=== PATIENT | male | born 1995 | race Caucasian/White ===

== ENCOUNTER 2023-04-14 01:54 | Observation (INO) | payer SELFPAY ==
[2023-04-14] VITALS (7 sets, daily range): BP systolic 114–145; BP diastolic 76–81; PULSE 50–76; RESP 16–18; TEMP 36.6–36.9; O2SAT 95–99; BMI 21.5; BMI 22.6
--- NOTE | 2023-04-14 02:35 | CT_ITS ---
[facility] [address], [place] [address] Patient Name: SHAHIDA ALVAREZ MRN: [id number] date: 1995 Sex: M Assigned Patient Location: ER Current Patient Location: ER Accession/Order Number: [id number] Exam Date: 04/14/2023 03:05 Report Date: 04/14/2023 04:08 At the request of: ARLENE MARKER Procedure: CT abdomen pelvis w con EXAM: CT abdomen pelvis w con HISTORY: GI bleeding. COMPARISON: None. TECHNIQUE: Routine CT abdomen/pelvis with intravenous contrast. FINDINGS: Lower chest: Unremarkable. Liver: Fatty infiltration of the liver. Gallbladder/biliary tree: Cholecystectomy. There is no biliary dilatation. Pancreas: Unremarkable. Spleen: Unremarkable. Adrenal glands: Unremarkable. Kidneys: Unremarkable. Bowel: There is a moderate amount of stool within the colon. There are a few diverticula along the descending and sigmoid colon without diverticulitis. The appendix is unremarkable. The distal esophagus is normal. There is a small amount of fluid within the stomach. There is prominence of the gastric rugal fold pattern. Fluid and a few air-fluid levels are seen within jejunal and ileal small bowel loops. The jejunal small bowel loops are mildly thickened. In the right clinical setting these findings can be associated with a gastroenteritis. There is a jejunal jejunal intussusception within the left mid to upper abdomen (axial image 59, coronal image 29 and sagittal image 25). The bowel gas pattern is nonobstructive. Inflammation: There is no free air, free fluid or inflammatory reaction. Vasculature: The abdominal aorta and the inferior vena cava are unremarkable. Lymphadenopathy: There are no pathologically enlarged lymph nodes within the abdomen/pelvis. Pelvis: The unopacified urinary bladder is unremarkable. The prostate gland is unremarkable. Osseous: Mild scoliosis. CT/CT abdomen pelvis w con IMPRESSION: Findings as described in the body the report which in the right clinical setting can be associated with a gastroenteritis. There is a jejunal jejunal intussusception within the left mid to upper abdomen. The bowel gas pattern is nonobstructive with a moderate amount of stool within the colon. There are a few diverticula along the descending and sigmoid colon without diverticulitis. The liver is fatty infiltrated. Electronically authenticated by: EDWIN OSORIO Date: 04/14/2023 04:08
[2023-04-14 02:56] LABS: Basophils Absolute Auto 0.1 10^3/uL (0.0-0.1); Basophils Percent Auto 0.9 % (0.2-2.0); Eosinophils Absolute Auto 0.1 10^3/uL (0.0-0.7); Eosinophils Percent Auto 1.3 % (0.9-7.0); Hematocrit 42.8 % (42.0-54.0); Hemoglobin 14.9 g/dL (14.0-18.0); Immature Granulocytes Abs Auto 0.02 10^3/uL (0.00-0.03); Immature Granulocytes Pct Auto 0.3 % (0.0-0.5); Lymphocytes Absolute Auto 1.5 10^3/uL (1.2-3.8); Lymphocytes Percent Auto 22.2 % (20.5-60.0); Mean Corpuscular HGB Conc 34.8 g/dL (29.9-35.2); Mean Corpuscular Hemoglobin 34.6 pg (25.9-34.0); Mean Corpuscular Volume 99.3 fL (80.0-94.0); Mean Platelet Volume 9.3 fL (9.5-13.5); Monocytes Absolute Auto 1.1 10^3/uL (0.3-0.8); Monocytes Percent Auto 15.8 % (1.7-12.0); Neutrophils Percent Auto 59.5 % (43.0-75.0); Platelet Count 214 10^3/uL (150-450); Red Blood Count 4.31 10^6/uL (4.70-6.10); Red Cell Distribution Width 12.4 % (11.0-15.0); White Blood Count 6.7 10^3/uL (4.0-11.0)
[2023-04-14] MEDS: KETOROLAC TROMETHAMINE 30 MG/ML VIAL IVP (02:58)
[2023-04-14] MEDS: 0.9 % SODIUM CHLORIDE 1,000 ML 1000 ML IV (02:58)
[2023-04-14] MEDS: FAMOTIDINE/PF 20 MG/2 ML VIAL IV (02:59)
[2023-04-14 03:05] LABS: Alanine Aminotransferase 147 U/L (16-63); Albumin Globulin Ratio 1.4; Albumin Level 4.1 g/dL (3.4-5.0); Alkaline Phosphatase 50 U/L (46-116); Anion Gap 13.8; Aspartate Amino Transferase 82 U/L (15-37); BUN Creatinine Ratio 7.6; Bilirubin Total 0.3 mg/dL (0.2-1.0); Calcium 8.8 mg/dL (8.5-10.1); Carbon Dioxide 24.7 mmol/L (21.0-32.0); Chloride 102 mmol/L (98-107); Estimated GFR (African America >60 (>=60); Estimated GFR (Non-African Ame >60 (>=60); Glucose 95 mg/dL (74-106); Potassium 3.5 mmol/L (3.5-5.1); Sodium 137 mmol/L (136-145); Total Protein 7.1 g/dL (6.4-8.2)
--- NOTE | 2023-04-14 03:24 | ED.GIBLEED1 ---
HPI - GI Bleed General Chief complaint: GI Bleed Stated complaint: ANAL BLEEDING Time Seen by Provider: 04/14/23 02:00 Source: patient Mode of arrival: walk-in Limitations: no limitations History of Present Illness HPI Narrative: This 28-year-old male with a history of hemorrhoids presents for evaluation of generalized abdominal pain with dark red bleeding with bowel movements for approximately one week. He states at times he has hard stool that is hard to pass and has some blood with it but has also been having normal stools that have been dark. He has generalized abdominal pain. He has not had any nausea or vomiting or diarrhea.He has had a colonoscopy in the past and endoscopy. He has ongoing stomach issues . He had his gallbladder removed at age 13. He does admit to taking aspirin on a fairly regular basis. He denies any chest pain. He has ongoing shortness of breath and admits to smoking 1-2 packs of cigarettes on a daily basis. He denies any weight loss. He denies any fever. He does not take any stool softeners. He is not certain if he has a hemorrhoid at this time but states that is anus feels weird. He states that he has a various number of bowel movements on a daily basis and the dark stools have been present for about a week. Related Data Home Medications Medication Instructions Recorded Confirmed No Known Home Medications 04/14/23 04/14/23 Allergies Allergy/AdvReac Type Severity Reaction Status Date / Time No Known Drug Allergies Allergy Verified 04/14/23 02:06 Review of Systems ROS Status of ROS 10 or more systems reviewed and unremarkable except as noted in history and below PFSH PFSH Social History Smoking status: Current every day smoker Exam Narrative Exam Narrative: Nurses note and vital signs reviewed and patient is not hypoxic. General: Thin male resting comfortably on the cart, no respiratory distress Patient is resting comfortably on cart. Skin: Warm, dry, no pallor noted. There is no rash noted. Head: Normocephalic, atraumatic Eye: Normal conjunctiva, no drainage, EOMI. PERRL Ears, Nose, Mouth, and Throat: oral mucosa is moist. Cardiovascular: Regular Rate and Rhythm Respiratory: Bilateral expiratory wheezing and rhonchi in all lung mojica, no accessory muscle use Back: non-tender, no CVA tenderness bilaterally to percussion. GI: Normal bowel sounds, Generalized abdominal tenderness with no rebound guarding rigidity, rectal exam performed with RN treating and pumping supervisor, there was a nonthrombosed internal hemorrhoid at the 12 o'clock position, there was no stool in the vault and no blood on my fingertip, no masses besides the nonthrombosed internal hemorrhoid appreciated Musculoskeletal: Nontender, no deformity Neurological: A&O x4, normal speech Psychiatric: Cooperative Constitutional Vital Signs, click to edit/add: Last Vital Signs Temp 98.1 F 04/14/23 02:00 Pulse 72 04/14/23 05:10 Resp 16 04/14/23 05:10 BP 123/81 H 04/14/23 02:00 Pulse Ox 98 04/14/23 05:10 O2 Del Method Room Air 04/14/23 02:00 Course Vital Signs Vital signs: Vital Signs Temperature 98.1 F 04/14/23 02:00 Pulse Rate 73 04/14/23 02:00 Respiratory Rate 16 04/14/23 02:00 Blood Pressure 123/81 H 04/14/23 02:00 Pulse Oximetry 96 04/14/23 02:00 Oxygen Delivery Method Room Air 04/14/23 02:00 Temperature 98.1 F 04/14/23 02:00 Pulse Rate 72 04/14/23 05:10 Respiratory Rate 16 04/14/23 05:10 Blood Pressure 123/81 H 04/14/23 02:00 Pulse Oximetry 98 04/14/23 05:10 Oxygen Delivery Method Room Air 04/14/23 02:00 MDM - GI Bleed MDM Narrative Medical decision making narrative: Is 28-year-old male with a history of hemorrhoids presents for evaluation of dark stools for the past week with generalized abdominal pain. He has not had any nausea or vomiting. He has not any diarrhea. He states at times his stools are hard and difficult past but even when they're not he is having dark stool. He has had a colonoscopy and endoscopy in the past that he thinks was normal. He has not had a fever. He is thin. His lung exam revealed diffuse wheezing for which she received a DuoNeb treatment. He has generalized abdominal tenderness with no focal tenderness. Rectal exam was performed which revealed a small, nonthrombosed hemorrhoid at approximately the 12 o'clock position. There was no blood or stool in the rectal vault. An IV was placed and he was given IV fluids, Toradol for his generalized abdominal pain and Pepcid. Routine labs were ordered and are normal. He has a normal white count and hemoglobin is 14.9.. He has normal electrolytes. Lipase is normal. Lactic acid is normal at 1.5. Ct scan of the abdomen and pelvis was ordered to rule out any intra-abdominal pathology causing his symptoms. CT scan of the abdomen pelvis shows a finding of moderate amount of stool within the colon with a few diverticula along the descending and sigmoid colon without diverticulitis. The appendix is unremarkable. Distal esophagus is normal. It says there is a small amount of fluid within the stomach with prominence of the gastric rugal fold pattern fluid and air fluid levels are seen within jejunal and ileal small bowel loops. The jejunal small bowel loops are mildly thickened in the right clinical setting these findings can be associated with a gastroenteritis. There is a jejunojejunal intussusception within the left mid to upper abdomen the bowel gas pattern is nonobstructive. The remainder of the CT scan was normal. Case was discussed with the on-call general surgeon, Dr. Tanner who does not think this is a surgery requiring intussusception since the patient does not have any obstructive findings. He also suggested that the patient get a CT scan with oral and IV contrast to further elucidate the intussusception. Case was discussed with Dr Umaña and he is accepted for admission, med/surg, Observation status Lab Data Labs: Lab Results 04/14/23 04/14/23 Range/Units 02:20 02:45 WBC 6.7 (4.0-11.0) 10^3/uL RBC 4.31 L (4.70-6.10) 10^6/uL Hgb 14.9 (14.0-18.0) g/dL Hct 42.8 (42.0-54.0) % MCV 99.3 H (80.0-94.0) fL MCH 34.6 H (25.9-34.0) pg MCHC 34.8 (29.9-35.2) g/dL RDW 12.4 (11.0-15.0) % Plt Count 214 (150-450) 10^3/uL MPV 9.3 L (9.5-13.5) fL Neut % (Auto) 59.5 (43.0-75.0) % Lymph % (Auto) 22.2 (20.5-60.0) % [place] % (Auto) 15.8 H (1.7-12.0) % Eos % (Auto) 1.3 (0.9-7.0) % Baso % (Auto) 0.9 (0.2-2.0) % Neut # (Auto) 4.0 (1.4-6.5) 10^3/uL Lymph # (Auto) 1.5 (1.2-3.8) 10^3/uL [place] # (Auto) 1.1 H (0.3-0.8) 10^3/uL Eos # (Auto) 0.1 (0.0-0.7) 10^3/uL Baso # (Auto) 0.1 (0.0-0.1) 10^3/uL Abs Immat Gran (auto) 0.02 (0.00-0.03) 10^3/uL Imm/Tot Granulo (auto) 0.3 (0.0-0.5) % Sodium 137 (136-145) mmol/L Potassium 3.5 (3.5-5.1) mmol/L Chloride 102 (98-107) mmol/L Carbon Dioxide 24.7 (21.0-32.0) mmol/L Anion Gap 13.8 BUN 5.0 L (7.0-18.0) mg/dL Creatinine 0.66 L (0.70-1.30) mg/dL Est GFR ( Amer) >60 (>=60) Est GFR (Non-Af Amer) >60 (>=60) BUN/Creatinine Ratio 7.6 Glucose 95 (74-106) mg/dL Lactate 1.4 (0.4-2.0) mmol/L Calcium 8.8 (8.5-10.1) mg/dL Total Bilirubin 0.3 (0.2-1.0) mg/dL AST 82 H (15-37) U/L ALT 147 H (16-63) U/L Alkaline Phosphatase 50 (46-116) U/L Total Protein 7.1 (6.4-8.2) g/dL Albumin 4.1 (3.4-5.0) g/dL Globulin 3.0 g/dL Albumin/Globulin Ratio 1.4 Lipase 71.0 L (73.0-393.0) U/L Discharge Plan Discharge Chief Complaint: GI Bleed Clinical Impression: GI bleeding, Jejunal intussusception Patient Disposition: Admitted as Observation Time of Disposition Decision: 06:36 Condition: Good Prescriptions / Home Meds: No Action No Known Home Medications Referrals: Serge Umaña MD [Primary Care Provider] - 1 week
[2023-04-14] MEDS: 0.9 % SODIUM CHLORIDE 1,000 ML 125 ML IV (05:03)
[2023-04-14 05:04] LABS: Lactate/Lactic Acid 1.4 mmol/L (0.4-2.0)
[2023-04-14] MEDS: IPRATROPIUM/ALBUTEROL SULFATE 3 ML AMPUL.NEB IH ×2 (05:09→05:30)
--- NOTE | 2023-04-14 07:36 | P.HP_ITS ---
H&P: HPI History of Present Illness Chief complaint: ANAL BLEEDING Narrative: Patient has a history of intermittent abdominal pain throughout the years. Resented to the emergency room with some rectal bleeding. Dark at times bright red at times. History of hemorrhoids. But his pain in his abdomen was increas ing. In ER evaluation shows possible jejunal jejunal intussusception. But no obstruction. Patient without emesis. Patient admitted for IV hydration, considerations for repeat CT scan. Admitting for due to risk of increasing intussusception resulting obstruction Review of Systems ROS Constitutional Denies: fever or chills Ears, nose, mouth, and throat Denies: throat pain Cardiovascular Denies: chest pain Respiratory Denies: shortness of breath Gastrointestinal Reports: abdominal pain, rectal itching and blood in stool Neurological Denies: headache Psychiatric Denies: anxiety Endocrine Denies: excessive urination PFSH PFSH Social History Smoking status: Current every day smoker Meds Home Medications and Allergies Home Medications Medication Instructions Recorded Confirmed Type No Known Home Medications 04/14/23 04/14/23 History Allergies Allergy/AdvReac Type Severity Reaction Status Date / Time No Known Drug Allergies Allergy Verified 04/14/23 02:06 Exam Constitutional Vital Signs, click to edit/add: Last Vital Signs Temp 98.1 F 04/14/23 02:00 Pulse 72 04/14/23 05:10 Resp 16 04/14/23 05:10 BP 123/81 H 04/14/23 02:00 Pulse Ox 98 04/14/23 05:10 O2 Del Method Room Air 04/14/23 02:00 Documenting provider has reviewed patient's vital signs: yes Common normals: apparent distress [facility] Common normals: normocephalic Chest Common normals: inspection of chest normal Respiratory Common normals: normal respiratory effort, no retractions and clear to auscultation bilaterally Cardio Common normals: regular rate, regular rhythm and no murmurs GI Common normals: soft to palpation Palpation: tender and guarding (No rebound tenderness) Results Labs Labs: Short CBC 04/14/23 Range/Units 02:45 WBC 6.7 (4.0-11.0) 10^3/uL Hgb 14.9 (14.0-18.0) g/dL Hct 42.8 (42.0-54.0) % Plt Count 214 (150-450) 10^3/uL BMP 04/14/23 02:45 Sodium 137 Potassium 3.5 Chloride 102 Carbon Dioxide 24.7 BUN 5.0 L Creatinine 0.66 L Glucose 95 Calcium 8.8 Liver Function 04/14/23 Range/Units 02:45 Total Bilirubin 0.3 (0.2-1.0) mg/dL AST 82 H (15-37) U/L ALT 147 H (16-63) U/L Alkaline Phosphatase 50 (46-116) U/L Albumin 4.1 (3.4-5.0) g/dL Assessment and Plan Assessment and Plan (1) Jejunal intussusception: (2) GI bleeding: Plan Patient with increasing abdominal pain with jejunal jejunal intussusception. No vomiting currently. Place patient on IV fluids. Soft diet. Discussed with surgery but will hold off on full consultation as no surgical intervention necessary at this time. If does well overnight will discharge to home. Consider repeat CT scan as an outpatient. If symptoms deteriorate will need CT scan with contrast IV and oral Elevated LFTs-consider further testing as an outpatient. He is already had his gallbladder removed. Does have fatty liver disease. Place patient observation status, IV fluids, bland diet.
[2023-04-14] MEDS: LACTATED RINGER'S SOLUTION 1,000 ML 100 ML IV ×2 (10:26→20:32)
[2023-04-14] MEDS: NICOTINE 21 MG PATCH.TD24 TD (11:26)
[2023-04-14] MEDS: HYOSCYAMINE SULFATE 0.125 MG TAB.SUBL SL ×2 (11:26→18:16)
[2023-04-14] MEDS: ONDANSETRON PF 4 MG/2 ML VIAL IV ×2 (12:45→21:58)
[2023-04-14] MEDS: ZOLPIDEM TARTRATE 5 MG TABLET PO (21:58)
[2023-04-15 04:57] LABS: Basophils Absolute Auto 0.1 10^3/uL (0.0-0.1); Basophils Percent Auto 0.9 % (0.2-2.0); Eosinophils Absolute Auto 0.2 10^3/uL (0.0-0.7); Eosinophils Percent Auto 2.3 % (0.9-7.0); Hematocrit 45.6 % (42.0-54.0); Immature Granulocytes Abs Auto 0.04 10^3/uL (0.00-0.03); Immature Granulocytes Pct Auto 0.6 % (0.0-0.5); Lymphocytes Absolute Auto 1.5 10^3/uL (1.2-3.8); Mean Corpuscular HGB Conc 32.9 g/dL (29.9-35.2); Mean Corpuscular Hemoglobin 33.6 pg (25.9-34.0); Mean Corpuscular Volume 102.2 fL (80.0-94.0); Mean Platelet Volume 10.1 fL (9.5-13.5); Monocytes Percent Auto 13.7 % (1.7-12.0); Neutrophils Absolute Auto 4.3 10^3/uL (1.4-6.5); Neutrophils Percent Auto 61.5 % (43.0-75.0); Platelet Count 189 10^3/uL (150-450); Red Blood Count 4.46 10^6/uL (4.70-6.10); Red Cell Distribution Width 12.5 % (11.0-15.0)
[2023-04-15 05:00] VITALS: O2SAT 94
[2023-04-15 05:08] LABS: HBsAg Screen Negative (Negative); HCV Ab Non Reactive (Non Reactive); Hep A Ab, IgM Negative (Negative); Hep B Core Ab, IgM Negative (Negative)
[2023-04-15 05:12] VITALS: BP 124/68; PULSE 70; RESP 18; TEMP 36.7; O2SAT 94
[2023-04-15 05:21] LABS: Alanine Aminotransferase 151 U/L (16-63); Albumin Globulin Ratio 1.3; Albumin Level 3.6 g/dL (3.4-5.0); Alkaline Phosphatase 50 U/L (46-116); Anion Gap 15.6; Aspartate Amino Transferase 92 U/L (15-37); BUN Creatinine Ratio 5.6; Calcium 8.8 mg/dL (8.5-10.1); Carbon Dioxide 24.2 mmol/L (21.0-32.0); Chloride 104 mmol/L (98-107); Estimated GFR (African America >60 (>=60); Estimated GFR (Non-African Ame >60 (>=60); Globulin 2.7 g/dL; Glucose 80 mg/dL (74-106); Potassium 3.8 mmol/L (3.5-5.1); Sodium 140 mmol/L (136-145); Total Protein 6.3 g/dL (6.4-8.2)
[2023-04-15] MEDS: LACTATED RINGER'S SOLUTION 1,000 ML 100 ML IV (06:32)
--- NOTE | 2023-04-15 07:37 | CT_ITS ---
[address] [address] Patient Name: SHAHIDA ALVAREZ MRN: [id number] date: 1995 Sex: M Assigned Patient Location: MS Current Patient Location: MS Accession/Order Number: [id number] Exam Date: 04/15/2023 09:10 Report Date: 04/15/2023 09:46 At the request of: CISCO WELLS Procedure: CT abdomen pelvis w con EXAMINATION: CT abdomen pelvis w con HISTORY: Jejunal - jejunal intussusception, elevated LFT COMPARISON: CT abdomen pelvis 04/14/2023 TECHNIQUE: Axial, Coronal, and Sagittal images were obtained without and/or with IV contrast as indicated by examination type. Dose reduction techniques were achieved by using automated exposure control and/or adjustment of mA and/or kV according to patient size and/or use of iterative reconstruction technique. FINDINGS: LUNG BASES: No visible pulmonary or pleural disease. LIVER: Fatty infiltration. BILIARY: Cholecystectomy. PANCREAS: No lesion, fluid collection, or abnormal duct dilatation. SPLEEN: No enlargement or focal lesion. ADRENALS: No mass or enlargement. KIDNEYS: No mass, obstruction, or calcification. BOWEL/MESENTERY: Trace amount of free fluid within right paracolic gutter; nonspecific. Mild segmental wall thickening of the proximal colon, which is also completely empty of stool in this may be secondary to lack of distention. AORTA/VASCULAR: No aneurysm or dissection. RETROPERITONEUM: No mass or adenopathy. LYMPH NODES: No adenopathy. URINARY BLADDER: No visible focal wall thickening, lesion, or calculus. PELVIC ORGANS: No visible mass. Pelvic organs appropriate for patient age. ABDOMINAL WALL: No mass or hernia. BONES: No bony lesion or fracture. OTHER: Negative. CT/CT abdomen pelvis w con IMPRESSION: 1.Interval resolution of previously seen jejunal intussusception. 2.Marked fatty infiltration of liver; greater than expected for patient's age. Electronically authenticated by: BERNICE JEFFERSON Date: 04/15/2023 09:46
--- NOTE | 2023-04-15 07:39 | P.PN_ITS ---
Progress Note: Subjective Subjective Interval history: She is able to eat some yesterday, nausea but no emesis Exam Constitutional Vital Signs, click to edit/add: Last Vital Signs Temp 98.0 F 04/15/23 05:12 Pulse 70 04/15/23 05:12 Resp 18 04/15/23 05:12 BP 124/68 04/15/23 05:12 Pulse Ox 94 L 04/15/23 05:12 O2 Del Method Room Air 04/15/23 05:12 Documenting provider has reviewed patient's vital signs: yes Common normals: apparent distress HENMT Common normals: normocephalic Chest Common normals: inspection of chest normal Respiratory Common normals: normal respiratory effort, no retractions and clear to auscultation bilaterally Cardio Common normals: regular rate, regular rhythm and no murmurs GI Common normals: soft to palpation Palpation: tender (Less tenderness than yesterday.) and guarding (No rebound tenderness) Progress Note: Objective Labs Labs: Short CBC 04/15/23 Range/Units 04:07 WBC 7.0 (4.0-11.0) 10^3/uL Hgb 15.0 (14.0-18.0) g/dL Hct 45.6 (42.0-54.0) % Plt Count 189 (150-450) 10^3/uL BMP 04/15/23 04:07 Sodium 140 Potassium 3.8 Chloride 104 Carbon Dioxide 24.2 BUN 4.0 L Creatinine 0.71 Glucose 80 Calcium 8.8 Liver Function 04/15/23 Range/Units 04:07 Total Bilirubin 1.0 (0.2-1.0) mg/dL AST 92 H (15-37) U/L ALT 151 H (16-63) U/L Alkaline Phosphatase 50 (46-116) U/L Albumin 3.6 (3.4-5.0) g/dL Progress Note: A&P Assessment and Plan (1) Jejunal intussusception: (2) GI bleeding: Plan Patient with increasing abdominal pain with jejunal jejunal intussusception.? No vomiting currently.? Patient tolerated more liquid diet Yesterday. We will check CT scan abdomen and pelvis with IV and oral contrast this morning. If that is normal he will be discharged home in improving condition. Medications see list. Follow-up with me in the office more as needed. Elevated LFTs-consider further testing as an outpatient.? due to the elevated LFTs persisting today, I will check CT scan abdomen and pelvis with contrast IV and oral. Place patient observation status, IV fluids, bland diet.
[2023-04-15] MEDS: HYOSCYAMINE SULFATE 0.125 MG TAB.SUBL SL (07:57)
[2023-04-15] MEDS: NICOTINE 21 MG PATCH.TD24 TD (08:00)
--- NOTE | 2023-04-25 16:12 | CM.DCFOLLOWU ---
3 attempts for discharge follow up call were made, no answer.
== END 2023-04-15 10:55 | disposition home or self-care (01) ==
LOC: ER 06:47 → MS 07:43
PROVIDERS: Admitting Provider Internal Medicine; Emergency Provider Emergency Medicine; PCP Family Medicine; Visit Provider Family Medicine
DX: K56.1 Intussusception (principal); K92.2 Gastrointestinal hemorrhage, unspecified; R79.89 Other specified abnormal findings of blood chemistry; K76.0 Fatty (change of) liver, not elsewhere classified; F17.210 Nicotine dependence, cigarettes, uncomplicated; Z90.49 Acquired absence of other specified parts of digestive tract
CPT/HCPCS: 36415; 74177; 80053; 80074; 83605; 83690; 85025; 94640; 94761; 96374; 96375; 96376; 99285; 99406; G0378; Q9966; Q9967

== ENCOUNTER 2023-04-21 11:03 | Outpatient (OUT) | payer SELFPAY ==
--- NOTE | 2023-04-21 11:09 | XR_ITS ---
The [address] [address] Patient Name: SHAHIDA ALVAREZ MRN: [id number] date: 1995 Sex: M Assigned Patient Location: [facility] Current Patient Location: [facility] Accession/Order Number: [id number] Exam Date: 04/21/2023 11:20 Report Date: 04/21/2023 12:22 At the request of: CISCO WELLS Procedure: XR abdomen 1V EXAM: XR abdomen 1V HISTORY: Jejunal Intussusception K56.1 COMPARISON: None. TECHNIQUE: AP view of the abdomen. FINDINGS: Nonobstructive bowel gas pattern is noted. There is no suspicious calcification. The osseous structures are intact. XR/XR abdomen 1V IMPRESSION: Nonobstructive bowel gas pattern. Electronically authenticated by: DUDLEY RAMSEY Date: 04/21/2023 12:22
== END 2023-04-21 11:04 | disposition home or self-care (01) ==
LOC: RAD 11:04
PROVIDERS: PCP Family Medicine; Visit Provider Family Medicine
DX: K56.1 Intussusception (principal)
CPT/HCPCS: 74018

== ENCOUNTER 2023-05-30 12:38 | Outpatient (OUT) | payer SELFPAY | END 2023-05-30 12:39 | disposition home or self-care (01) | LOC: PST 12:38 | PROVIDERS: PCP Family Medicine; Visit Provider Surgery | DX: Z01.818 Encounter for other preprocedural examination (principal); K56.1 Intussusception; K62.5 Hemorrhage of anus and rectum; R10.84 Generalized abdominal pain; R11.2 Nausea with vomiting, unspecified; R19.4 Change in bowel habit ==

== ENCOUNTER 2023-06-01 09:09 | Day surgery (SDC) | payer SELFPAY ==
--- NOTE | 2023-06-01 | OP_ITS ---
OPERATION DATE: ??06/01/2023 PREOPERATIVE DIAGNOSIS:? Abdominal pain, rectal bleeding, nausea, vomiting, change in bowel habits. POSTOPERATIVE DIAGNOSIS:? Sliding type hiatal hernia with antral gastritis and mild distal esophagitis, normal colon to cecum. PROCEDURE:? EGD with antral biopsy x2 and colonoscopy to cecum with random sigmoid colon biopsies. SURGEON:? Momo Tanner M.D. ANESTHESIA:? Monitored anesthesia care. ESTIMATED BLOOD LOSS:? Less than 1 mL. INDICATIONS AND CONSENT:? Patient is a 28-year-old male with long history of abdominal pain, recently with worsening crampy abdominal pain, nausea, vomiting, intermittent rectal bleeding.? Indications, risks, benefits, alternatives of proceeding with EGD and colonoscopy were explained extensively to the patient, including the risks of bleeding, aspiration, esophageal/gastric/duodenal or colonic perforation or anesthetic complications.? All of his questions were answered.? Informed consent was obtained. PROCEDURE:? Patient brought to the operating room, placed in the left lateral decubitus position.? Monitored anesthesia care was provided.? Bite block was placed in the patient?s mouth.? Scope was entered into the oropharynx.? Under direct visualization, it was advanced into the esophagus, past the cricopharyngeus, down to the stomach.? The stomach was insufflated with air.? The pylorus was traversed down to the descending portion of the duodenum.? There was no evidence of duodenitis or ulceration.? There was no scarring within the pyloric channel.?? Scope was pulled back into the stomach and retroflexed.? There was noted to be a small, sliding type hiatal hernia.? There was moderate gastritis throughout the stomach but concentrated in the antrum, without ulcerations or bleeding.? Several biopsies were obtained of the antrum with good hemostasis.? The GE junction was noted at approximately 38 cm.? There was noted to be some mild distal esophagitis without Crawford?s changes. Remainder of the esophagus was unremarkable.? The scope was then withdrawn.? Patient was then positioned for colonoscopy.? Rectal exam was performed, which showed some decreased tone and some hypertrophic anal papillae.? The scope was then inserted into the anal canal.? Under direct visualization, it was advanced.? It was advanced to the cecum where cecal markings were clearly identified.? There was noted to be a good prep.? Terminal ileum could not be intubated due to the angle, but the external area was evaluated and was without inflammation or ulceration.? Upon withdrawal of the scope, mucosal surfaces were carefully examined.? There were no mass lesions or ulcerations.? No inflammatory changes.? No significant diverticulosis.? There was some mild erythema in the sigmoid and multiple random biopsies were obtained with good hemostasis.? The scope was retroflexed in the anal canal.? There were noted to be some prominent rectal veins.? No significant hemorrhoidal disease.? The scope was then withdrawn.? The patient tolerated procedure well, was sent to recovery room in good condition. Follow up colonoscopy for screening should begin at age 44. CC:? Serge Umaña M.D. MTDLizbet
[2023-06-01 09:15] VITALS: BP 152/95; PULSE 96; RESP 16; O2SAT 99; BMI 22.6
[2023-06-01] MEDS: LACTATED RINGER'S SOLUTION 1,000 ML 50 ML IV (09:38)
[2023-06-01 10:47] VITALS: BP 116/71; PULSE 75; RESP 14; TEMP 36.1; O2SAT 100
[2023-06-01 11:02] VITALS: BP 125/78; PULSE 79; RESP 16; O2SAT 100
[2023-06-01 11:17] VITALS: BP 118/74; PULSE 74; RESP 16; O2SAT 100
== END 2023-06-01 11:20 | disposition home or self-care (01) ==
PROVIDERS: PCP Family Medicine; Visit Provider Surgery
PROC: (CPT 43239; principal; 2023-06-01 10:30)
DX: K56.1 Intussusception (principal); K62.5 Hemorrhage of anus and rectum; R10.84 Generalized abdominal pain; R11.2 Nausea with vomiting, unspecified; R19.4 Change in bowel habit; K20.90 Esophagitis, unspecified without bleeding; K44.9 Diaphragmatic hernia without obstruction or gangrene; K29.50 Unspecified chronic gastritis without bleeding; Z90.49 Acquired absence of other specified parts of digestive tract; F17.210 Nicotine dependence, cigarettes, uncomplicated
CPT/HCPCS: 43239; 45380; 88305; 88342; J2704

== ENCOUNTER 2023-08-09 18:43 | Emergency (ER) | payer SELFPAY ==
[2023-08-09 18:48] VITALS: BP 126/88; PULSE 102; RESP 20; TEMP 36.6; O2SAT 97; BMI 21.5
[2023-08-09 19:40] LABS: Internal Control Within Normal Limits; Strep A Antigen Screen Negative
[2023-08-09 19:41] LABS: Mono Screen NEGATIVE (NEGATIVE)
[2023-08-09 19:44] LABS: SARS-CoV-2 Ag NEGATIVE (NEGATIVE)
--- NOTE | 2023-08-09 22:32 | XR_ITS ---
The [place] [id number] Patient Name: SHAHIDA ALVAREZ MRN: [id number] date: 1995 Sex: M Assigned Patient Location: ER Current Patient Location: ED.MAIN Accession/Order Number: [id number] Exam Date: 08/09/2023 22:38 Report Date: 08/09/2023 23:28 At the request of: JANE RED Procedure: XR chest 2V EXAM: XR chest 2V HISTORY: cough COMPARISON: Chest x-ray 02/03/2023 TECHNIQUE: 2 views chest x-rays frontal and lateral FINDINGS: Mild bilateral perihilar airway wall thickening. No lung consolidation, large pleural effusion, pneumothorax, or acute bony abnormality. Cardiac size is unremarkable. XR/XR chest 2V IMPRESSION: Mild bilateral perihilar airway wall thickening reflect sequela of reactive airway inflammation or infectious airway etiology. Correlate clinically. Otherwise, no radiographic lung consolidation or large pleural effusion. Electronically authenticated by: CHRISTAL DOMINGUEZ Date: 08/09/2023 23:28
--- NOTE | 2023-08-09 22:46 | ED.URI1 ---
HPI - URI/Sore Throat General Chief Complaint: Upper Respiratory Infection Stated Complaint: Cough Vomiting Time Seen by Provider: 08/09/23 22:42 Source: patient Limitations: no limitations History of Present Illness HPI Narrative: ill for 2 weeks with recurrent cough. Becoming more short of breath. No fever. Does have a sore throat. Denies history of asthma but does occ use an inhaler when he has a cold. No abdominal pain, nausea, vomiting. Does have diarrhea MD elicited complaint: Reports fever, cough and sore throat Related Data Home Medications Medication Instructions Recorded Confirmed No Known Home Medications 04/14/23 05/30/23 Previous Rx's Medication Instructions Recorded pantoprazole 40 mg tablet,delayed 40 mg PO DAILY 8 weeks #56 tabs 06/01/23 release (Protonix) Allergies Allergy/AdvReac Type Severity Reaction Status Date / Time No Known Drug Allergies Allergy Verified 05/30/23 12:31 Review of Systems ROS Status of ROS 10 or more systems reviewed and unremarkable except as noted in history and below [facility] Medical History (Updated 08/10/23 @ 00:06 by Steven Padilla MD) Abdominal pain ?R10.9 - Unspecified abdominal pain (ICD-10) ADHD ?F90.9 - Attention-deficit hyperactivity disorder, unspecified type (ICD-10) Anxiety ?F41.9 - Anxiety disorder, unspecified (ICD-10) Chronic alcoholism ?F10.20 - Alcohol dependence, uncomplicated (ICD-10) Chronic cough ?R05.3 - Chronic cough (ICD-10) Diverticulosis ?K57.90 - Diverticulosis of intestine, part unspecified, without perforation or abscess without bleeding (ICD-10) Fatty liver ?K76.0 - Fatty (change of) liver, not elsewhere classified (ICD-10) GI bleeding ?K92.2 - Gastrointestinal hemorrhage, unspecified (ICD-10) 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 - Intussusception (ICD-10) Nausea & vomiting ?R11.2 - Nausea with vomiting, unspecified (ICD-10) Prostatitis ?N41.9 - Inflammatory disease of prostate, unspecified (ICD-10) Surgical History (Updated 04/14/23 @ 08:24 by Fatimah Garrido) H/O colonoscopy ?Z98.890 - Other specified postprocedural states (ICD-10) H/O esophagogastroduodenoscopy ?Z98.890 - Other specified postprocedural states (ICD-10) Hx of cholecystectomy ?Z90.49 - Acquired absence of other specified parts of digestive tract (ICD-10) Family History (Updated 05/19/23 @ 11:41 by Jewels Case RN) Other Multiple sclerosis Social History (Updated 04/14/23 @ 08:27 by Fatimah Garrido) Within the past year, how often did you have a drink containing alcohol: 2-4 times a month Within the past year, how many standard drinks containing alcohol did you have on a typical day: 3 or 4 Within the past year, how often did you have six or more drinks on one occasion: less than monthly Total score: 3 Score interpretation: A score of 4 or more indicates drinking is likely to affect patient's safety. Smoking status: Heavy tobacco smoker Do you use any of these nicotine containing products: vaping products and smokeless tobacco Non-prescribed substance use: cannabis (any form) Previous occupational history: current, [employer] Highest level of school completed/degree received: GED or equivalent Are you now , , , , never or living with a partner: living with partner Little interest or pleasure in doing things: more than half the days Feeling down, depressed, or hopeless: several days Exam Constitutional Vital Signs, click to edit/add: Last Vital Signs Temp 98 F 08/09/23 18:48 Pulse 89 08/09/23 23:14 Resp 22 08/09/23 23:14 BP 126/88 08/09/23 18:48 Pulse Ox 98 08/09/23 23:14 O2 Del Method Room Air 08/09/23 18:48 Common normals: no apparent distress, average body habitus, oriented x3, no limitations, healthy appearing, alert and well nourished Eye Common normals: EOMs intact bilaterally and conjunctivae normal Respiratory Other: faint exp wheeze Cardio Common normals: regular rate, regular rhythm, S1 normal heart sound and S2 normal heart sound GI Common normals: Normal to inspection, nondistended, normoactive bowel sounds present, soft to palpation and non-tender Extremity Common normals: normal to inspection and full ROM Neuro Common normals: oriented x3, moves all extremities and no focal motor deficits Psych Appearance: grossly normal Course Vital Signs Vital signs: Vital Signs Temperature 98 F 08/09/23 18:48 Pulse Rate 102 H 08/09/23 18:48 Respiratory Rate 20 08/09/23 18:48 Blood Pressure 126/88 08/09/23 18:48 Pulse Oximetry 97 08/09/23 18:48 Oxygen Delivery Method Room Air 08/09/23 18:48 Temperature 98 F 08/09/23 18:48 Pulse Rate 89 08/09/23 23:14 Respiratory Rate 22 08/09/23 23:14 Blood Pressure 126/88 08/09/23 18:48 Pulse Oximetry 98 08/09/23 23:14 Oxygen Delivery Method Room Air 08/09/23 18:48 MDM - URI/Sore Throat MDM Narrative Medical decision making narrative: patient presents ill for past couple of weeks. Recurrent cough and now diarrhea and feeling short of breath. Does smoke cigarettes. No fever. xray with bilat hilar air way thickening. exam with mild diffuse wheeze that cleared after PO prednisone and albuterol NMT. Patient also complaining of diarrhea. Not able to give sample of stool here and is requesting to bring one in later as he wants to go home. Discharged home with prednisone, albuterol inhaler and zpak and is to follow up with his doctor Lab Data Labs: Lab Results 08/09/23 Range/Units 19:22 WBC 8.8 (4.0-11.0) 10^3/uL RBC 4.92 (4.70-6.10) 10^6/uL Hgb 16.3 (14.0-18.0) g/dL Hct 49.0 (42.0-54.0) % MCV 99.6 H (80.0-94.0) fL MCH 33.1 (25.9-34.0) pg MCHC 33.3 (29.9-35.2) g/dL RDW 12.0 (11.0-15.0) % Plt Count 264 (150-450) 10^3/uL MPV 9.7 (9.5-13.5) fL Neut % (Auto) 54.0 (43.0-75.0) % Lymph % (Auto) 28.3 (20.5-60.0) % Bates % (Auto) 15.3 H (1.7-12.0) % Eos % (Auto) 1.4 (0.9-7.0) % Baso % (Auto) 0.8 (0.2-2.0) % Neut # (Auto) 4.8 (1.4-6.5) 10^3/uL Lymph # (Auto) 2.5 (1.2-3.8) 10^3/uL Bates # (Auto) 1.4 H (0.3-0.8) 10^3/uL Eos # (Auto) 0.1 (0.0-0.7) 10^3/uL Baso # (Auto) 0.1 (0.0-0.1) 10^3/uL Abs Immat Gran (auto) 0.02 (0.00-0.03) 10^3/uL Imm/Tot Granulo (auto) 0.2 (0.0-0.5) % Sodium 135 L (136-145) mmol/L Potassium 3.9 (3.5-5.1) mmol/L Chloride 98 (98-107) mmol/L Carbon Dioxide 22.7 (21.0-32.0) mmol/L Anion Gap 18.2 BUN 3.0 L (7.0-18.0) mg/dL Creatinine 0.81 (0.70-1.30) mg/dL Est GFR ( Amer) >60 (>=60) Est GFR (Non-Af Amer) >60 (>=60) BUN/Creatinine Ratio 3.7 Glucose 76 (74-106) mg/dL Calcium 9.3 (8.5-10.1) mg/dL SARS-CoV-2 (PCR) Negative (NEGATIVE) Monoscreen Negative (NEGATIVE) Streptococcus Screen Negative Discharge Plan Discharge Chief Complaint: Upper Respiratory Infection Clinical Impression: Diarrhea, Acute bronchospasm, Bronchitis Patient Disposition: Home, Self-Care Prescriptions / Home Meds: No Action pantoprazole [Protonix] 40 mg tablet,delayed release (DR/EC) 40 mg PO DAILY 56 Days Qty: 56 0RF No Known Home Medications Instructions: Acute Bronchitis (ED), Acute Diarrhea (ED), Bronchospasm (ED) Additional Instructions: follow up with Dr Umaña this week for recheck. Return stool sample as directed by nursing Stand Alone Forms: Portal Instructions Referrals: Serge Umaña MD [Primary Care Provider] - 1 week
[2023-08-09 23:06] LABS: Basophils Absolute Auto 0.1 10^3/uL (0.0-0.1); Basophils Percent Auto 0.8 % (0.2-2.0); Eosinophils Absolute Auto 0.1 10^3/uL (0.0-0.7); Eosinophils Percent Auto 1.4 % (0.9-7.0); Hemoglobin 16.3 g/dL (14.0-18.0); Immature Granulocytes Abs Auto 0.02 10^3/uL (0.00-0.03); Immature Granulocytes Pct Auto 0.2 % (0.0-0.5); Lymphocytes Absolute Auto 2.5 10^3/uL (1.2-3.8); Lymphocytes Percent Auto 28.3 % (20.5-60.0); Mean Corpuscular HGB Conc 33.3 g/dL (29.9-35.2); Mean Corpuscular Hemoglobin 33.1 pg (25.9-34.0); Mean Corpuscular Volume 99.6 fL (80.0-94.0); Mean Platelet Volume 9.7 fL (9.5-13.5); Monocytes Absolute Auto 1.4 10^3/uL (0.3-0.8); Monocytes Percent Auto 15.3 % (1.7-12.0); Neutrophils Absolute Auto 4.8 10^3/uL (1.4-6.5); Platelet Count 264 10^3/uL (150-450); Red Blood Count 4.92 10^6/uL (4.70-6.10); White Blood Count 8.8 10^3/uL (4.0-11.0)
[2023-08-09] MEDS: ALBUTEROL SULFATE 2.5 MG/3 ML VIAL NEB IH (23:13)
[2023-08-09 23:14] VITALS: PULSE 89; RESP 22; O2SAT 98
[2023-08-09 23:14] LABS: Anion Gap 18.2; BUN Creatinine Ratio 3.7; Calcium 9.3 mg/dL (8.5-10.1); Carbon Dioxide 22.7 mmol/L (21.0-32.0); Chloride 98 mmol/L (98-107); Estimated GFR (African America >60 (>=60); Estimated GFR (Non-African Ame >60 (>=60); Glucose 76 mg/dL (74-106); Potassium 3.9 mmol/L (3.5-5.1); Sodium 135 mmol/L (136-145)
[2023-08-09] MEDS: PREDNISONE 20 MG TABLET 60 MG PO (23:20)
[2023-08-10] MEDS: ALBUTEROL SULFATE 200 PUFF/6.7 GM INHALER IH (00:22)
--- NOTE | 2023-08-10 00:38 | PC.NURSE ---
patient states he has been sick and coughing for 3 weeks. intermittent vomiting some mornings. intermittent waves of nausea and diarrhea. patient has not seen a physician yet. main complaint is that he cannot get rid of his cough
[2023-08-11 13:11] LABS: SARS-CoV-2 NAA INCONCLUSIVE (NOT DETECTE)
== END 2023-08-10 00:32 | disposition home or self-care (01) ==
PROVIDERS: Physician Assistant; Emergency Provider Internal Medicine; PCP Family Medicine
DX: J20.9 Acute bronchitis, unspecified (principal); R19.7 Diarrhea, unspecified; Z20.822 Contact with and (suspected) exposure to COVID-19; F17.210 Nicotine dependence, cigarettes, uncomplicated; Z90.49 Acquired absence of other specified parts of digestive tract; Z98.890 Other specified postprocedural states; F10.20 Alcohol dependence, uncomplicated; F41.9 Anxiety disorder, unspecified; F90.9 Attention-deficit hyperactivity disorder, unspecified type
CPT/HCPCS: 36415; 71046; 80048; 85025; 86308; 87045; 87070; 87493; 87635; 87811; 87880; 94640; 99284

== ENCOUNTER 2023-10-28 17:44 | Emergency (ER) | payer SELFPAY ==
[2023-10-28] VITALS (12 sets, daily range): BP systolic 119–130; BP diastolic 77–94; PULSE 89–118; RESP 6–22; TEMP 36.9; O2SAT 95–99; BMI 21.5
--- OUTSIDE RECORDS SUMMARY | 2023-10-28 17:50 | XMS_ITS | CCD ---
Author Name Unknown Address [id number] [place] [address] Organization [facility] Care Team Providers Care Supply Chain Buyer Name Role Phone PHYSICIAN, DEFAULT Admitting Unavailable PHYSICIAN, DEFAULT Attending Unavailable BRENDAN, CHEO Admitting Unavailable BRENDAN, CHEO Attending Unavailable BRENDAN, CHEO Referring Unavailable BRENDAN, CHEO Primary Care Unavailable BRENDAN, CHRISTPATOER Admitting Unavailable BRENDAN, CHRISTRUPERT Attending Unavailable BRENDAN, CHRISTPATOER Referring Unavailable BRENDAN, CHRISTOPHER Primary Care Unavailable MARKER ., DR JACOBS Admitting Unavailable MARKER ., DR JACOBS Consulting Unavailable MARKER ., DR JACOBS Attending Unavailable HOY ., DR PECK Primary Care Unavailable STRAWSERJURGEN Consulting Unavailable HOY ., DR PECK Primary Care Unavailable HOY ., DR PECK Attending Unavailable HOY ., DR PECK Admitting Unavailable HOY ., DR PECK Primary Care Unavailable HOY ., DR PECK Consulting Unavailable HOY ., DR PECK Attending Unavailable HOY ., DR PECK Admitting Unavailable CHRISTAL DOMINGUEZ Consulting Unavailable DIAB ., CATRACHO Admitting Unavailable DIAB ., CATRACHO Attending Unavailable HOY ., DR PECK Primary Care Unavailable BREANNE ., CATRACHO Consulting Unavailable Cisco Umaña Primary Care Physician [phone] Momo DEE Attending Unavailable Momo DEE Attending Unavailable Cisco Umaña Referring Unavailable Momo DEE Attending Unavailable Allergies Allergy Classification Reported Allergen(s) Allergy Type Date of Onset Reaction(s) Facility (1 source) No Known Medication Allergies; Translations: [No Known Medication Allergies] Propensity to adverse reactions (disorder) [facility] Repository Problems Active Problems Problem Classification Problem Date Documented Da te Episodic/Chronic Abdominal pain (2 sources) Generalized abdominal pain; Translations: [Generalized abdominal pain] Onset: 3 Episodic Alcohol-related disorders (1 source) Continuous chronic alcoholism Onset: 8 05-13-2023 Chronic Anxiety disorders (1 source) Anxiety Onset: 8 05-13-2023 Chronic Attention-deficit, conduct, and disruptive behavior disorders (1 source) Attention deficit hyperactivity disorder 05-13-2023 Chronic 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 (3 sources) Postconcussional syndrome; Translations: [POSTCONCUSSIONAL SYNDROME] Onset: 8 Chronic Gastrointestinal hemorrhage (2 sources) Hemorrhage of rectum and anus; Translations: [Hemorrhage of anus and rectum] Onset: 3 Episodic Nausea and vomiting (2 sources) Nausea and vomiting; Translations: [Nausea with vomiting, unspecified] Onset: 3 Episodic Other gastrointestinal disorders (2 sources) Altered bowel function; Translations: [Change in bowel habit] Onset: 3 Episodic Other liver diseases (1 source) Steatosis of liver 05-18-2023 Chronic Other lower respiratory disease (1 source) Hemoptysis; Translations: [HEMOPTYSIS] Onset: 3 Episodic Other male genital disorders (1 source) History of prostatitis 05-13-2023 Episodic Other nervous system disorders (1 source) Chronic pain; Translations: [Other chronic pain] Onset: 3 Chronic Pneumonia (except that caused by tuberculosis or sexually transmitted disease) (1 source) Pneumonia, unspecified organism; Translations: [PNEUMONIA UNSPECIFIED ORGANISM] Onset: 3 Episodic Residual codes; unclassified (1 source) Acquired absence of other specified parts of digestive tract; Translations: [ACQ ABSENCE OTH PART DIGESTV TRACT] Onset: 3 Episodic Substance-related disorders (1 source) Nicotine dependence, cigarettes, uncomplicated; Translations: [NICOTINE DEPEND CIGARETTES UNCOMP] Onset: 3 Chronic Unclassified (2 sources) DX Onset: 8 Unclassified (2 sources) COUGH, UNSPECIFIED; Translations: [COUGH, UNSPECIFIED] Onset: 3 Unclassified (3 sources) CONTACT W/AND (SUSP) EXPOS COVID-19; Translations: [CONTACT W/AND (SUSP) EXPOS COVID-19] Onset: 2 Unclassified (1 source) Body mass index 20-24 - normal 05-18-2023 Past or Other Problems Problem Classification Problem Date Documented Da te Episodic/Chronic Acute bronchitis (1 source) Acute bronchitis, unspecified; Translations: [ACUTE BRONCHITIS UNSPECIFIED] Onset: 07-26-2022 Episodic Residual codes; unclassified (1 source) Tobacco user Onset: 10-18-2017 05-13-2023 Episodic Unclassified (1 source) COUGH, UNSPECIFIED; Translations: [COUGH, UNSPECIFIED] Onset: 11-18-2022 Unclassified (1 source) CONTACT W/AND (SUSP) EXPOS COVID-19; Translations: [CONTACT W/AND (SUSP) EXPOS COVID-19] Onset: 07-22-2022 Results Test Name Value Interpretation Reference Range Facility General Surgery Office/Clini c Noteon 06-14-2023 General Surgery Office/Clinic Note Chief Complaint post operative follow up HPI Staff 13 day post operative follow up post EGD with antral biopsy and colonoscopy with sigmoid biopsies. Continues to experience abdominal pain, nausea and rectal bleeding. Prescribed Protonix after scopes completed. 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 History of Present Illness s/p EGD and colonoscopy due to loose stools and epigastric pain, nausea; evidence of hiatal hernia with gastritis, mild esophagitis; bx negative for H pylori; colonoscopy with increased bile, no inflammation or polyps; random sigmoid biopsies wnl; prominent rectal veins; patient still with bleeding after wiping; multiple loose bms. patient has not started th Protonix yet. Review of Systems ROS - Provider Constitutional: no fever, no sweats, no weight loss. Eyes: no glasses, no blurred vision, no visual loss. ENMT: no dentures, no hoarseness, no swallowing difficulties, no hearing loss, no ear infection(s), no nose bleeds. Cardiovascular: normal blood pressure, no chest pain, regular heartbeat, no heart murmur. Respiratory: no shortness of breath, no cough, no asthma, no wheezing. Gastrointestinal: no nausea, no vomiting, no diarrhea, no constipation, no blood in stool, no change in bowel habits, no abdominal pain, no hepatitis. Genitourinary: no kidney stones, no urine infection, no dysuria. Musculoskeletal: no pain, no weakness. Skin: no changing moles, no rash, no skin lumps. Neurologic: no seizures, no epilepsy, no headache. Psychiatric: no emotional or psychiatric problem. Heme/Lymph: no bleeding problems, no anemia, no blood clots, no transfusions. Allergy/Immunologic: no swollen lymph nodes/glands, no IV drug abuse. Other: Additional ROS info: Except as noted in the above Review of Systems and in the History of Present Illness, all other systems have been reviewed and are negative or noncontributory. Physical Exam !! Assessment/Plan 1. Hiatal hernia with GERD and esophagitis (K44.9: Diaphragmatic hernia without obstruction or gangrene) begin Protonix daily; recommend avoiding alcohol and tobacco; no carbonated beverages; no eating 3 hours prior to sleep; call with problems/questions. Ordered: E&M of Est. Patient Low 20-29 Min 84438 2. Postcholecystectomy diarrhea (K91.89: Other postprocedural complications and disorders of digestive system) trial of Questran daily, can increase to bid if no response; recommend wet wipes to avoid perianal irritation, which is likely causing the bleeding; call with problems/questions. Ordered: cholestyramine, = 1 packet(s), Oral, Daily, # 30 EA, Refills(s) 3, Pharmacy: [id number], 175.2, cm, 05/18/23 15:50:00 EDT, Height/Length Dosing, 73.4, kg, 05/18/23 15:50:00 EDT, Weight Dosing E&M of Est. Patient Low 20-29 Min 95213 Diarrhea, unspecified (R19.7: Diarrhea, unspecified) see # 2 Gastro-esophageal reflux disease with esophagitis, without bleeding (K21.00: Gastro-esophageal reflux disease with esophagitis, without bleeding) see # 1 Follow-up No qualifying data available Problem List/Past Medical History Ongoing Abdominal pain, chronic, generalized ADHD Anxiety BMI 23.0-23.9, adult Change in bowel habits Continuous chronic alcoholism Fatty liver Hiatal hernia with GERD and esophagitis History of prostatitis Nausea & vomiting Postcholecystectomy diarrhea Rectal bleeding Tobacco user Historical No qualifying data Procedure/Surgical History Colonoscopy (06/01/2023), EGD - Esophagogastroduodenoscopy (06/01/2023), Cholecystectomy, Colonoscopy, EGD - Esophagogastroduodenoscopy. Medications Protonix 40 mg Tab-DR, 40 mg= 1 tab(s), Oral, Daily Questran 4 g/9 g oral powder, 1 packet(s), Oral, Daily, 3 refills Allergies No Known Allergies No Known Medication Allergies Social History Alcohol Current, Beer, 1-2 times per week, 05/18/2023 Substance Abuse Current, Marijuana, 1-2 times per week, 05/18/2023 Tobacco 10 or more cigarettes (1/2 pack or more)/day in last 30 days Tobacco Use:. Former smokeless tobacco user, quit more than 30 days ago Smokeless Tobacco Use:. Cigarettes, Vaping, 1.5 per day. Started age 15.0 Years. Yes, 05/18/2023 Family History Multiple sclerosis: Mother. Immunizations Vaccine Date Status Comments SARS-CoV-2 (COVID-19) mRNA BNT-162b2 vax 10/29/2021 Recorded 2023-05-13: TPVALL SARS-CoV-2 (COVID-19) mRNA BNT-162b2 vax 05/11/2021 Recorded 2023-05-13: TPVALL SARS-CoV-2 (COVID-19) mRNA BNT-162b2 vax 04/20/2021 Recorded 2023-05-13: TPVALL [facility] Comment on above: Result Comment: Electronically Signed By : LEILA HERRERA, Momo Burleson\Date and Time Signed: 06/14/23 15:18 EDT Pathology Noteon 06-08-2023 Pathology Note [id number]#1.00CD:127 [facility] Outside Colonoscopyon 2022 Outside Colonoscopy [id number]#1.00CD:127 [facility] Consent for Procedure/Surger yon 05-19-2023 Consent for Procedure/Surger y [id number]#1.00CD:127 [facility] Formson 05-19-2023 Forms [id number]#1.00CD:127 [facility] Ambulatory Visit Summaryon 0 05-18-2023 Ambulatory Visit Summary MARTIN ALVAREZ :1995 Visit Date:05/18/2023 Ambulatory Visit Instructions Your Care Team Attending Physician - LEILA HERRERA, Momo Sanders Primary Care Physician - Leeroy HERRERA, Cisco Referring Physician - Cisco Umaña MD Procedures Performed Cholecystectomy, Colonoscopy, EGD - Esophagogastroduodenoscopy. Discharge Vitals Heart Rate (Peripheral) 74 Respiratory Rate 16 Blood Pressure 144/82 Height 175.2 cm Height 69 in Weight 73.4 kg Weight 161.48 lb BMI 23.91 Allergies No Known Allergies No Known Medication Allergies Problems Ongoing - Any problem that you are currently receiving treatment for. ADHD Anxiety BMI 23.0-23.9, adult Continuous chronic alcoholism Fatty liver History of prostatitis Tobacco user [facility] Consultation Noteon 04-29-20 Consultation Note [id number]#1.00CD:127 [facility] Lab Reportson 04-29-2023 Lab Reports [id number]#1.00CD:127 [facility] RAD - CT Reporton 04-29-2023 RAD - CT Report [id number]#1.00CD:127 [facility] RAD - MISCon 04-29-2023 RAD - MISC [id number]#1.00CD:127 [facility] Physician Referralon 023 Physician Referral [id number]#1.00CD:127 [facility] CBC AUTO DIFFon 02-03-2023 BASO # 0.1 103/ul Normal 0.0-0.1 [facility] Comment on above: Performed By: #### CBC #### [facility] [address] [address] [address] Florian Harrison Basophils/100 WBC (Bld) 0.6 % Normal 0.2-2.0 [facility] Comment on above: Performed By: #### CBC #### [facility] [address] [address] [address] Florian Harrison EO # 0.0 103/ul Normal 0.0-0.7 [facility] Comment on above: Performed By: #### CBC #### [facility] [address] [address] [address] Florian Harrison Eosinophils/100 WBC (Bld) 0.4 % Critically low 0.9-7.0 [facility] Comment on above: Performed By: #### CBC #### [facility] [address] [address] [address] Florian Harrison Erythrocyte distribution width (RBC) [Ratio] 12.2 % Normal 11.0-15.0 [facility] Comment on above: Performed By: #### CBC #### [facility] [address] [address] [address] Florian Harrison Hematocrit (Bld) [Volume fraction] 48.5 % Normal 42.0-54.0 [facility] Comment on above: Performed By: #### CBC #### [facility] [address] [place] [address] Dr. Florian Harrison Hemoglobin (Bld) [Mass/Vol] 16.6 g/dL Normal 14.0-18.0 [facility] Comment on above: Performed By: #### CBC #### [facility] [address] [address] [address] Florian Harrison IG # 0.04 10e3/ul Critically high 0.00-0.03 [facility] Comment on above: Performed By: #### CBC #### [facility] [address] [address] [address] Florian Harrison IG % 0.4 % Normal 0.0-0.5 [facility] Comment on above: Performed By: #### CBC #### [facility] [address] [place] [address] Dr. Florian Harrison LYMPH # 1.6 103/ul Normal 1.2-3.8 [facility] Comment on above: Performed By: #### CBC #### [facility] [address] [place] [address] Dr. Florian Harrison Lymphocytes/100 WBC (Bld) 14.9 % Critically low 20.5-60.0 [facility] Comment on above: Performed By: #### CBC #### [facility] [address] [place] [address] Dr. Florian Harrison MANUAL DIFF REQ NO Normal [facility] Comment on above: Performed By: #### CBC #### [facility] [address] [place] [address] Dr. Florian Harrison MCH (RBC) [Entitic mass] 33.8 pg Normal 25.9-34.0 [facility] Comment on above: Performed By: #### CBC #### [facility] [address] [place] [address] Dr. Florian Harrison MCHC (RBC) [Mass/Vol] 34.2 g/dL Normal 29.9-35.2 [facility] Comment on above: Performed By: #### CBC #### [facility] [address] [place] [address] Dr. Florian Harrison MCV (RBC) [Entitic vol] 98.8 fL Critically high 80.0-94.0 [facility] Comment on above: Performed By: #### CBC #### [facility] [address] [place] [address] Dr. Florian Harrison MONO # 2.0 103/ul Critically high 0.3-0.8 [facility] Comment on above: Performed By: #### CBC #### [facility] [address] [place] [address] Dr. Florian Harrison Monocytes/100 WBC (Bld) 17.9 % Critically high 1.7-12.0 [facility] Comment on above: Performed By: #### CBC #### [facility] [address] [place] [address] Dr. Florian Harrison NEUT # 7.2 103/ul Critically high 1.4-6.5 [facility] Comment on above: Performed By: #### CBC #### [facility] [address] [place] [address] Dr. Florian Harrison Neutrophils/100 WBC (Bld) 65.8 % Normal 43.0-75.0 [facility] Comment on above: Performed By: #### CBC #### [facility] [address] [place] [address] Dr. Florian Harrison Platelet mean volume (Bld) [Entitic vol] 9.5 fL Normal 9.5-13.5 [facility] Comment on above: Performed By: #### CBC #### [facility] [address] [place] [address] Dr. Florian Harrison PLT 275 103/ul Normal 150-450 [facility] Comment on above: Performed By: #### CBC #### [facility] [address] [place] [address] Dr. Florian Harrison RBC 4.91 106/ul Normal 4.70-6.10 [facility] Comment on above: Performed By: #### CBC #### [facility] [address] [place] [address] Dr. Florian Harrison WBC 10.9 103/ul Normal 4.0-11.0 [facility] Comment on above: Performed By: #### CBC #### [facility] [address] [place] [address] Dr. Florian Harrison INFLUENZA A AND B AGon 02-03 INFLUENZA A AG Negative Normal NEGATIVE SEE COMMENT [facility] Comment on above: Performed By: #### INFLUAB #### [facility] [address] [place] [address] Dr. Florian Harrison INFLUENZA B AG Negative Normal NEGATIVE SEE COMMENT [facility] Comment on above: Performed By: #### INFLUAB #### [facility] [address] [place] [address] Dr. Florian Harrison LACTATE/LACTIC ACIDon 2022 Lactate [Moles/Vol] 2.6 mmol/L Critically high 0.4-2.0 [facility] Comment on above: Performed By: #### LACT #### [facility] [address] [address] [address] Florian Harriosn LIPASEon 02-03-2023 Lipase [Catalytic activity/Vol] 150.0 U/L Normal 73.0-393.0 [facility] Comment on above: Performed By: #### CMP, LIPA #### [facility] [address] [address] [address] Florian Harrison PROF 14(COMP METB)on 023 Albumin [Mass/Vol] 4.7 g/dL Normal 3.4-5.0 [facility] Comment on above: Performed By: #### CMP, LIPA ####[facility] [address] [address]Dr. Florian Harrison Albumin/Globulin [Mass ratio] 1.3 {ratio} Normal [facility] Comment on above: Performed By: #### CMP, LIPA ####[facility] [address] [address]Dr. Florian Harrison ALP [Catalytic activity/Vol] 78 U/L Normal 46-116 [facility] Comment on above: Performed By: #### CMP, LIPA ####[facility] [address] [address]Dr. Florian Harrison ALT [Catalytic activity/Vol] 140 U/L Critically high 16-63 [facility] Comment on above: Performed By: #### CMP, LIPA ####[facility] [address] [address]DrJo Ann Harrison Anion gap [Moles/Vol] 21.0 mmol/L Normal [facility] Comment on above: Performed By: #### CMP, LIPA ####[facility] [address] [address]Dr. Florian Harrison AST [Catalytic activity/Vol] 85 U/L Critically high 15-37 [facility] Comment on above: Performed By: #### CMP, LIPA ####[facility] [address] [place], [place] [address]Dr. Florian Harrison Bilirubin [Mass/Vol] 1.5 mg/dL Critically high 0.2-1.0 [facility] Comment on above: Performed By: #### CMP, LIPA ####[facility] [address] [address]Dr. Florian Harrison Calcium [Mass/Vol] 10.3 mg/dL Critically high 8.5-10.1 [facility] Comment on above: Performed By: #### CMP, LIPA ####[facility] [address] [address]Dr. Florian Harrison Chloride [Moles/Vol] 90 mmol/L Critically low 98-107 [facility] Comment on above: Performed By: #### CMP, LIPA ####[facility] [address] [place], [place] [address]Dr. Florian Harrison CO2 [Moles/Vol] 23.7 mmol/L Normal 21.0-32.0 [facility] Comment on above: Performed By: #### CMP, LIPA ####[facility] [address] [place], [place] [address]Dr. Florian Harrison Creatinine [Mass/Vol] 0.96 mg/dL Normal 0.70-1.30 [facility] Comment on above: Performed By: #### CMP, LIPA ####[facility] [address] [place], [place] [address]Dr. Florian Harrison EGFR-AF SWAZI >60 Normal >=60 [facility] Comment on above: Performed By: #### CMP, LIPA ####[facility] [address] [address]Dr. Florian Harrison EGFR-NON AF SWAZI >60 Normal >=60 [facility] Comment on above: Performed By: #### CMP, LIPA ####[facility] [address] [place], [place] [address]Dr. Florian Harrison Globulin (S) [Mass/Vol] 3.6 g/dL Normal [facility] Comment on above: Performed By: #### CMP, LIPA ####[facility] [address] [address]Dr. Florian Harrison Glucose [Mass/Vol] 97 mg/dL Normal 74-106 [facility] Comment on above: Performed By: #### CMP, LIPA ####[facility] [address] [address]Dr. Florian Harrison Potassium [Moles/Vol] 3.7 mmol/L Normal 3.5-5.1 [facility] Comment on above: Performed By: #### CMP, LIPA ####[facility] [address] [address]Dr. Florian Harrison Protein [Mass/Vol] 8.3 g/dL Critically high 6.4-8.2 [facility] Comment on above: Performed By: #### CMP, LIPA ####[facility] [address] [address]Dr. Florian Harrison Sodium [Moles/Vol] 131 mmol/L Critically low 136-145 [facility] Comment on above: Performed By: #### CMP, LIPA ####[facility] [address] [address]Dr. Florian Harrison Urea nitrogen [Mass/Vol] 7.0 mg/dL Normal 7.0-18.0 [facility] Comment on above: Performed By: #### CMP, LIPA ####[facility] [address] [address]Dr. Florian Harrison Urea nitrogen/Creatin ine [Mass ratio] 7.3 mg/mg Normal [facility] Comment on above: Performed By: #### CMP, LIPA ####[facility] [address] [place], [place] [address]Dr. Florian Harrison SYMPTOMATIC COVID-19 ANTIGEN on 02-03-2023 EUA Statement SEE BELOW Normal [facility] Comment on above: Result Comment: This test has not been F DA cleared or approved, but has been authorized by the FDA under an Emergency Use Authorization (EUA) for use by authorized laboratories certified under CLIA that meet the requirements to perform moderate or high complexity testing. This test has been authorized only for the detection of proteins from SARS-CoV-2, not for any other viruses or pathogens. The emergency use of this test is authorized for the duration of the declaration that circumstances exist justifying the authorization of emergency use of in vitro diagnostic tests for detection and/or diagnosis of Covid-19 under section 564(b)(1) of the Act, 21 U.S.C. 360bbb-3(b)(1), unless the declaration is terminated or authorization is revoked sooner. Performed By: #### C VDAGS #### [facility] [address] [place] [address] Dr. Florian Harrison SARS-CoV-2 (COVID-19) RNA JOHNNY+probe Ql (Unsp spec) Negative Normal NEGATIVE [facility] Comment on above: Performed By: #### CVDAGS #### [facility] [address] [place] [address] Dr. Florian Harrison XR CHEST 1 Von 02-03-2023 XR CHEST 1 V EXAMINATION:XR CHEST 1 V INDICATION:COUGH COMPARISON:11/17/2022 TECHNIQUE:A single frontal view of the chest is submitted. FINDINGS: The cardiomediastinal silhouette is not enlarged. The pulmonary vascularity is within normal limits. Lungs are hyperinflated without acute airspace disease. There is no costophrenic angle blunting. IMPRESSION: No acute cardiopulmonary process. Electronically authenticated by: UJRGEN GREENE Date: 2023-02-03 01:58 Normal [facility] CBC W MANUAL DIFFon 11-19-19 23 ATYPICAL LYMPH # Normal [facility] Comment on above: Performed By: #### CBCMAN #### [facility] [address] [place] [address] Dr. Florian Harrison ATYPICAL LYMPH % Normal [facility] Comment on above: Performed By: #### CBCMAN #### [facility] [address] [place] [address] Dr. Florian Harrison BAND # Normal 0.0-0.3 [facility] Comment on above: Performed By: #### CBCMAN #### [facility] [address] [place] [address] Dr. Florian Harrison BAND % Normal 0-5 [facility] Comment on above: Performed By: #### CBCMAN #### [facility] [address] [address] [address] Florian Harrison BASOM # 0.00 103/ul Normal 0.00-0.10 [facility] Comment on above: Performed By: #### CBCMAN #### [facility] [address] [address] [address] Florian Harrison BASOM % 0.0 % Critically low 0.2-2.0 [facility] Comment on above: Performed By: #### CBCMAN #### [facility] [address] [address] [address] Florian Harrison BLAST # Normal [facility] Comment on above: Performed By: #### CBCRAYMON #### [facility] [address] [place] [address] Dr. Florian Harrison BLAST % Normal [facility] Comment on above: Performed By: #### CBCRAYMON #### [facility] [address] [address] [address] Florian Harrison CORRECTED WBC Normal 4.0-11.0 [facility] Comment on above: Performed By: #### CBCRAYMON #### [facility] [address] [place] [address] Dr. Florian Harrison EOS # 0.19 103/ul Normal 0.00-0.70 [facility] Comment on above: Performed By: #### CBCRAYMON #### [facility] [address] [place] [address] Dr. Florian Harrison EOS% 2.0 % Normal 0.9-7.0 [facility] Comment on above: Performed By: #### CBCMAN #### [facility] [address] [place] [address] Dr. Florian Harrison HCT 43.9 % Normal 42.0-54.0 [facility] Comment on above: Performed By: #### CBCMAN #### [facility] [address] [place] [address] Dr. Florian Harrison HGB 14.7 g/dl Normal 14.0-18.0 [facility] Comment on above: Performed By: #### CBCRAYMON #### [facility] [address] [address] [address] Florian Harrison LYMPHM # 1.86 103/ul Normal 1.20-3.80 [facility] Comment on above: Performed By: #### CBCRAYMON #### [facility] [address] [address] [address] Florian Harrison LYMPHM% 20.0 % Critically low 20.5-60.0 [facility] Comment on above: Performed By: #### CBCRAYMON #### [facility] [address] [address] [address] Florian Harrison MCH 33.4 pg Normal 25.9-34.0 [facility] Comment on above: Performed By: #### CBCRAYMON #### [facility] [address] [address] [address] Florian Harrison MCHC 33.5 g/dl Normal 29.9-35.2 [facility] Comment on above: Performed By: #### CBCRAYMON #### [facility] [address] [address] [address] Florian Harrison MCV 99.8 fL Critically high 80.0-94.0 [facility] Comment on above: Performed By: #### CBCRAYMON #### [facility] [address] [address] [address] Florian Harrison METAMYELOCYTE # Normal [facility] Comment on above: Performed By: #### CBCRAYMON #### [facility] [address] [address] [address] Florian Harrison METAMYELOCYTE % Normal [facility] Comment on above: Performed By: #### CBCRAYMON #### [facility] [address] [address] [address] Florian Harrison MONOM# 1.67 103/ul Critically high 0.30-0.80 [facility] Comment on above: Performed By: #### CBCRAYMON #### [facility] [address] [address] [address] Florian Harrison MONOM% 18.0 % Critically high 1.7-12.0 [facility] Comment on above: Performed By: #### CBCRAYMON #### [facility] [address] [address] [address] Florian Harrison MPV 9.0 fL Critically low 9.5-13.5 [facility] Comment on above: Performed By: #### CBCMAN #### [facility] [address] [address]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 Care Provider Fa theresa 10-29-2021 SARS-CoV-2 (COVID-19 ) mRNA BNT-162b2 vax Momo NILL [facility] Comment on above: Result Comment: 2022: [facility] 05-11-2021 SARS-CoV-2 (COVID-19 ) mRNA BNT-162b2 vax Momo NILL [facility] Comment on above: Result Comment: 2022: [facility] 04-20-2021 SARS-CoV-2 (COVID-19 ) mRNA BNT-162b2 vax Momo NILL [facility] Comment on above: Result Comment: 2022: [facility] Payers Date Payer Category Payer Unknown [id number] 1995 Unknown [id number] 2.16.8 [id number] 1995 Unknown [id number] 2.16.8 [id number] 1995 Unknown [id number] 2.16.8 [id number] 1994 Unknown [id number] 2.16.84 [id number] 1994 Unknown [id number] 2.16.84 [id number] 1994 Unknown [id number] 2.16.84 [id number] 1994 Unknown [id number] 2.16.84 [id number] 1994 Unknown [id number] 2.16.8 [id number] 1994 Unknown [id number] 2.16.8 [id number] 1994 Unknown [id number] 2.16.8 [id number] 1960 Self-pay [id number] 1960 Self-pay Unknown Social History Date Type Detail Facility Start: 05-18-2023 Tobacco smoking status Heavy t obacco smoker (finding) [facility] Tobacco smoking status Former sm okeless tobacco user, quit more than 30 days ago [facility] Sex Assigned At Male [facility] Functional Status Date Assessment Result Facility 05-18-2023 Functional Status N/A [facility] Clinical Note 05-18-2023 Note Date & Type Note Facility 05-18-2023 Note Chief Complaint consultation for rectal bleeding HPI Staff 28 year old male presents on consultation from Dr. Umaña for rectal bleeding. Presented to [facility] ED 04/14 with complaint of rectal bleeding and abdominal pain. CT abdomen/pelvis with jejunal intussusception. Follow up with PCP 04/21 with continued complaint of rectal bleeding and some nausea. ABD x-ray with nonobstructive bowel gas pattern. He continues to experience daily rectal bleeding. Reports this happens primarily with bowel movements but not always. Reports blood is bright red and maroon in color. Reports stools are loose to watery. Reports external rectal pain for which he contributes to irritation from excessive wiping. Reports daily RLQ pain. Pain is constantly a 1 and increases to level 4. Reports daily nausea and primarily morning vomiting. No unexplained weight loss. History of Present Illness 28 yo male with h/o ADHD, anxiety; referred for abd pain, N/V; rectal bleeding; loose stools; patient with h/o intermittent bowel problems in the past; since the end of March has had worsening symptoms, with frequent loose stools, up to 3 x/day with rectal bleeding in the toilet bowel and with wiping; frequent nausea, and emesis of bilious fluid, unrelated to eating; no wt loss; some mid and RLQ crampy pain/ache; no fevers; seen in ED end of March; had abd/pelvic ct scan read as jejunal-jejunal intussusception; no inflammation or obstruction, no free fluid; repeat ct with oral contrast the next day, wnl; abd operations signifcant for LS cholecystectomy; has had a remote EGD/colonoscopy, reportedly wnl; no asa or NSAID use; h/o excessive alcohol consumption in past; reports now drinking several beers 2 x/week; smokes daily. no fmhx of GI malignancy or IBD. Review of Systems PHQ Score Initial Depression Screen Score: 0 ROS - Provider Constitutional: no fever, no sweats, no weight loss. Eyes: no glasses, no blurred vision, no visual loss. ENMT: no dentures, no hoarseness, no swallowing difficulties, no hearing loss, no ear infection(s), no nose bleeds. Cardiovascular: normal blood pressure, no chest pain, regular heartbeat, no heart murmur. Respiratory: no shortness of breath, no cough, no asthma, no wheezing. Gastrointestinal: no nausea, no vomiting, no diarrhea, no constipation, no blood in stool, no change in bowel habits, no abdominal pain, no hepatitis. Genitourinary: no kidney stones, no urine infection, no dysuria. Musculoskeletal: no pain, no weakness. Skin: no changing moles, no rash, no skin lumps. Neurologic: no seizures, no epilepsy, no headache. Psychiatric: no emotional or psychiatric problem. Heme/Lymph: no bleeding problems, no anemia, no blood clots, no transfusions. Allergy/Immunologic: no swollen lymph nodes/glands, no IV drug abuse. Other: Additional ROS info: Except as noted in the above Review of Systems and in the History of Present Illness, all other systems have been reviewed and are negative or noncontributory. Physical Exam Vitals & Measurements HR: 74(Peripheral) RR: 16 BP: 144/82 HT: 69 in HT: 175.2 cm WT: 73.4 kg WT: 161.48 lb BMI: 23.91 HEENT: normal conjunctiva, sclera clear, no scleral icterus, EOM intact, PERRLA, oral mucosa moist without lesions. Neck: trachea midline, no mass, symmetric, no thyromegaly or nodules, no adenopathy Respiratory: lungs CTA, respirations non labored. Cardiovascular: regular rate and rhythm, no murmur, no pedal edema or varicosities. Gastrointestinal: soft, non distended, mild tenderness, mid abd and RLQ, no peritoneal signs no masses, no palpable hernias, diastasis recti no, no hepatosplenomegaly; normal bs Lymphatic: no cervical adenopathy, no supraclavicular adenopathy. Musculoskeletal: normal gait, digits and nails without infection, nodes, cyanosis, clubbing. Skin: no rashes, no lesions, no ulcers, no subcutaneous nodules, induration. Psychiatric/Neuro: oriented to time, place, person, judgement normal, affect appropriate for age, insight intact, no focal deficits. Tests: labs reviewed, x-rays reviewed, review of old records completed, Discussed surgical options, risks, and possible complications with patient. Assessment/Plan 1. Rectal bleeding (K62.5: Hemorrhage of anus and rectum) plan EGD and colonoscopy under anesthesia, informed consent obtained. 2. Abdominal pain, chronic, generalized (R10.84: Generalized abdominal pain) see # 1 3. Change in bowel habits (R19.4: Change in bowel habit) see # 1 4. Nausea & vomiting (R11.2: Nausea with vomiting, unspecified) see # 1 Other chronic pain (G89.29: Other chronic pain) see # 1 Follow-up No qualifying data available Problem List/Past Medical History Ongoing Abdominal pain, chronic, generalized ADHD Anxiety BMI 23.0-23.9, adult Change in bowel habits Continuous chronic alcoholism Fatty liver History of prostatitis Nausea & vomiting Rectal bleeding Tobacco user Historical No qualifying data Procedure/Surgical (more content not included)... [facility] Comment on above: Result Comment: Elec tronically Signed By: LEILA HERRERA, Momo Akins.josephine\Date and Time Signed: 05/18/23 16:35 EDT History and physical note 04-29-2023 Note Date & Type Note Facility 04-29-2023 Note [id number] #[id number] [facility] Evaluation + Plan note Note Date & Type Note Facility Evaluation + Plan note No data available for this section [facility] Discharge instructions Note Date & Type Note Facility Hospital Discharge instructions No data available for this section [facility] Progress note Note Date & Type Note Facility Progress note No data available for this section [facility] Summary Purpose Family History No Family History Records FoundNo Family History Records FoundNo Family History Records Found Advance Directives No Advanced Directives Records FoundNo Advanced Directives Records FoundNo Advanced Directives Records Found Additional Source Comments (unrecognized sect ion and content) No Status Records FoundNo Status Records FoundNo Status Records Found INFORMATION SOURCE (unrecogn ized section and content) DATE CREATED AUTHOR 11/07/2018 [facility] DATE CREATED AUTHOR AUTHOR'S ORGANIZ ATION 02/03/2023 [facility] DATE CREATED AUTHOR AUTHOR'S ORGANIZ ATION 06/22/2023 [facility] Patient Care team informatio n (unrecognized section and content) Personnel Name: Cisco Umaña MD Address: Address: [address] [place] [address] FOR RECORDS PERTAINING TO PATIENTS WHO ARE OR HAVE BEEN ENROLLED IN A CHEMICAL DEPENDENCY/SUBSTANCEABUSE PROGRAM, SOME INFORMATION MAY BE OMITTED. This clinical summary was aggregated from multiple sources. Caution should be exercised in using it in the provision of clinical care. This summary normalizes information from multiple sources, and as a consequence, information in this document may materially change the coding, format and clinical context of patient data. In addition, data may be omitted in some cases. CLINICAL DECISIONS SHOULD BE BASED ON THE PRIMARY CLINICAL RECORDS. [facility], [facility]. provides no warranty or guarantee of the accuracy or completeness of information in this document.
--- NOTE | 2023-10-28 18:15 | ECG_ITS ---
[facility] Test Date: 2023-10-28 Pat Name: SHAHIDA ALVAREZ Department: Room: - Gender: Male Materials Associate: : 1995 Requested By: CISCO WELLS Order Number: [id number] Reading MD: CISCO WELLS Measurements Intervals Rose Rate: 96 P: 68 [place]: 138 QRS: 98 QRSD: 84 T: 38 QT: 340 QTc: 393 Interpretive Statements 1100 Sinus rhythm 7102 Moderate right axis deviation 9110 normal ECG Compared to ECG 02/02/2023 23:48:39 Sinus arrhythmia no longer present T-wave abnormality no longer present Electronically Signed On 10-31-2023 6:43:41 EST by CISCO WELLS
--- NOTE | 2023-10-28 18:19 | ED.GENADUL1 ---
HPI - General Adult General Chief complaint: Upper Respiratory Infection Stated complaint: Vomiting Time Seen by Provider: 10/28/23 17:45 Source: patient Mode of arrival: walk-in History of Present Illness HPI narrative: Patient is a 28-year-old male who is presenting to the ER of being ill since last . Patient states he been having cough, congestion, sinus congestion, intermittent nausea and vomiting for the past several weeks. Patient saw his PCP in the office, Dr. Umaña. Patient was given prescription for Levaquin, Tessalon Perles, and Zofran. Patient works at [employer]. Patient's hygiene is very poor. Patient smells of hygiene, body odor, and alcohol. Patient admits to 3 tall boys a day for many, many years. Patient has had a history of EGD twice, no significant findings. Patient also has had a Colonoscopy with no significant acute findings. Patient works at [employer], he works in the [employer]. Patient has been drinking daily for many many years. No other acute complaints this time. Patient went back to work at [employer] today, he is feeling better this morning. When patient was working, he started having nausea and vomiting at work, and then he left work. Patient came to the Emergency Room because he had small clots of red blood noted when he was coughing/vomiting. Patient has no coffee-ground emesis, patient has no melena. Patient has no excessive hematemesis.. Patient may have a Sabrina-Love tear. No other acute complaints.Patient smokes 1.5 packs Of cigarettes daily. Patient admits to smoking marijuana daily. All systems are negative except as noted/marked. All systems reviewed and otherwise negative. Nurses note and vital signs reviewed and patient is not hypoxic. General: The patient appears in no apparent distress. Patient is resting comfortably on cart. Patient is not toxic, lethargic, or listless. Patient is very poor body odor, poor hygiene, smells of body odor, smells of alcohol Skin: Warm, dry, no pallor noted. There is no rash noted. No petechiae, purpura.Patient has clubbing in tobacco stains to most of the fingers of both hands. Head: Normocephalic, atraumatic Eye: Normal conjunctiva, no drainage, EOMI. PERRL Ears, Nose, Mouth, and Throat: oral mucosa is moist. Poor dental hygiene, no acute periapical abscess or acute signs of infection. Nares patent. Mouth without vesicles. Cardiovascular: Regular Rate and Rhythm, no murmur, gallop, rub Respiratory: Patient is in no distress, no accessory muscle use, lungs are clear to auscultation, no wheezing, rales or rhonchi Back: non-tender, no CVA tenderness bilaterally to percussion. No CT LS midline pain GI: Mild midepigastric tenderness to palpation,no tenderness to palpation, no masses appreciated. No rebound, guarding, or rigidity noted. No distention Musculoskeletal: Patient has full range of motion of all of the extremities, no motor, sensory, or focal neurological deficits Neurological: A&O x4, normal speech Psychiatric: Cooperative Related Data Home Medications Medication Instructions Recorded Confirmed benzonatate 200 mg capsule 200 mg PO TID 10/28/23 10/28/23 levofloxacin 750 mg tablet 750 mg PO DAILY 10/28/23 10/28/23 ondansetron 4 mg disintegrating 4 mg PO Q6H PRN nausea and vomiting 10/28/23 10/28/23 tablet Allergies Allergy/AdvReac Type Severity Reaction Status Date / Time No Known Drug Allergies Allergy Verified 05/30/23 12:31 [facility] Medical History (Updated 10/28/23 @ 19:22 by Matt Bello MD) Chronic cough ?R05.3 - Chronic cough (ICD-10) Nausea & vomiting ?R11.2 - Nausea with vomiting, unspecified (ICD-10) Prostatitis ?N41.9 - Inflammatory disease of prostate, unspecified (ICD-10) Fatty liver ?K76.0 - Fatty (change of) liver, not elsewhere classified (ICD-10) Chronic alcoholism ?F10.20 - Alcohol dependence, uncomplicated (ICD-10) Anxiety ?F41.9 - Anxiety disorder, unspecified (ICD-10) ADHD ?F90.9 - Attention-deficit hyperactivity disorder, unspecified type (ICD-10) Abdominal pain ?R10.9 - Unspecified abdominal pain (ICD-10) Diverticulosis ?K57.90 - Diverticulosis of intestine, part unspecified, without perforation or abscess without bleeding (ICD-10) 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 - Intussusception (ICD-10) GI bleeding ?K92.2 - Gastrointestinal hemorrhage, unspecified (ICD-10) Surgical History (Updated 04/14/23 @ 08:24 by Fatimah Garrido) H/O esophagogastroduodenoscopy ?Z98.890 - Other specified postprocedural states (ICD-10) H/O colonoscopy ?Z98.890 - Other specified postprocedural states (ICD-10) Hx of cholecystectomy ?Z90.49 - Acquired absence of other specified parts of digestive tract (ICD-10) Family History (Updated 05/19/23 @ 11:41 by Jewels Case RN) Other Multiple sclerosis Social History (Updated 04/14/23 @ 08:27 by Fatimah Garrido) Within the past year, how often did you have a drink containing alcohol: 2-4 times a month Within the past year, how many standard drinks containing alcohol did you have on a typical day: 3 or 4 Within the past year, how often did you have six or more drinks on one occasion: less than monthly Total score: 3 Score interpretation: A score of 4 or more indicates drinking is likely to affect patient's safety. Smoking status: Heavy tobacco smoker Do you use any of these nicotine containing products: vaping products and smokeless tobacco Non-prescribed substance use: cannabis (any form) Previous occupational history: current, [employer] Highest level of school completed/degree received: GED or equivalent Are you now , , , , never or living with a partner: living with partner Little interest or pleasure in doing things: more than half the days Feeling down, depressed, or hopeless: several days Exam Constitutional Vital Signs, click to edit/add: Last Vital Signs Temp 98.5 F 10/28/23 17:48 Pulse 118 H 10/28/23 17:48 Resp 18 10/28/23 17:48 BP 130/77 10/28/23 17:48 Pulse Ox 99 10/28/23 17:48 O2 Del Method Room Air 10/28/23 17:48 Course Vital Signs Vital signs: Vital Signs Temperature 98.5 F 10/28/23 17:48 Pulse Rate 118 H 10/28/23 17:48 Respiratory Rate 18 10/28/23 17:48 Blood Pressure 130/77 10/28/23 17:48 Pulse Oximetry 99 10/28/23 17:48 Oxygen Delivery Method Room Air 10/28/23 17:48 Temperature 98.5 F 10/28/23 17:48 Pulse Rate 118 H 10/28/23 17:48 Respiratory Rate 18 10/28/23 17:48 Blood Pressure 130/77 10/28/23 17:48 Pulse Oximetry 99 10/28/23 17:48 Oxygen Delivery Method Room Air 10/28/23 17:48 Medical Decision Making MDM Narrative Medical decision making narrative: Patient was given 1 L of IV fluid. Patient's magnesium is 1.7. Patient has elevation of his LFTs secondary to alcoholic hepatitis. Patient states he's had alcohol dependence for many years. Patient will follow-up with PCP. Patient had eeducation that he needs help with alcohol dependence, possibly checking into rehabilitation. Patient aware of the risk is causing a work as well why he is drinking alcohol while working. Education done at bedside. Patient is not suicidal or homicidal. Patient has been pleasant to take care of. No questions at discharge. Patient is speaking clearly, not slurring his words, he does smell of alcohol, the patient has a functional decision-making capacity to be discharged, he does not appear to be acutely significantly intoxicated. Lab Data Lab results reviewed: Yes I reviewed the patient's lab results Labs: Lab Results 10/28/23 Range/Units 18:00 WBC 10.4 (4.0-11.0) 10^3/uL RBC 5.40 (4.70-6.10) 10^6/uL Hgb 17.6 (14.0-18.0) g/dL Hct 51.7 (42.0-54.0) % MCV 95.7 H (80.0-94.0) fL MCH 32.6 (25.9-34.0) pg MCHC 34.0 (29.9-35.2) g/dL RDW 12.3 (11.0-15.0) % Plt Count 265 (150-450) 10^3/uL MPV 9.6 (9.5-13.5) fL Neut % (Auto) 68.4 (43.0-75.0) % Lymph % (Auto) 16.3 L (20.5-60.0) % Republic % (Auto) 14.0 H (1.7-12.0) % Eos % (Auto) 0.2 L (0.9-7.0) % Baso % (Auto) 0.6 (0.2-2.0) % Neut # (Auto) 7.1 H (1.4-6.5) 10^3/uL Lymph # (Auto) 1.7 (1.2-3.8) 10^3/uL Republic # (Auto) 1.5 H (0.3-0.8) 10^3/uL Eos # (Auto) 0.0 (0.0-0.7) 10^3/uL Baso # (Auto) 0.1 (0.0-0.1) 10^3/uL Abs Immat Gran (auto) 0.05 H (0.00-0.03) 10^3/uL Imm/Tot Granulo (auto) 0.5 (0.0-0.5) % Sodium 137 (136-145) mmol/L Potassium 3.6 (3.5-5.1) mmol/L Chloride 96 L (98-107) mmol/L Carbon Dioxide 18.5 L (21.0-32.0) mmol/L Anion Gap 26.1 BUN 6.0 L (7.0-18.0) mg/dL Creatinine 1.08 (0.70-1.30) mg/dL Est GFR ( Amer) >60 (>=60) Est GFR (Non-Af Amer) >60 (>=60) BUN/Creatinine Ratio 5.6 Glucose 96 (74-106) mg/dL Calcium 10.0 (8.5-10.1) mg/dL Magnesium 1.7 L (1.8-2.4) mg/dL Total Bilirubin 0.8 (0.2-1.0) mg/dL AST 190 H (15-37) U/L ALT 219 H (16-63) U/L Alkaline Phosphatase 89 (46-116) U/L Troponin I High Sens <4.0 L (4.0-76.1) pg/mL Total Protein 8.5 H (6.4-8.2) g/dL Albumin 4.7 (3.4-5.0) g/dL Globulin 3.8 g/dL Albumin/Globulin Ratio 1.2 Lipase 21.0 (16.0-77.0) U/L Urine Color Dk. yellow (YELLOW) Urine Clarity Clear (CLEAR) Urine pH 5.0 (5.0-9.0) Ur Specific [place] >=1.030 A (1.005-1.025) Urine Protein 100 A (NEG/TRACE) mg/dL Urine Glucose (UA) Negative (NEGATIVE) mg/dL Urine Ketones Trace A (NEGATIVE) mg/dL Urine Occult Blood Negative (NEGATIVE) Urine Nitrite Negative (NEGATIVE) Urine Bilirubin Moderate A (NEGATIVE) Urine Urobilinogen 1.0 (0.2-1.0) EU/dL Ur Leukocyte Esterase Negative (NEGATIVE) Urine RBC 0-2 (0-2) #/HPF Urine WBC 0-2 A (NONE SEEN) #/HPF Ur Squamous Epith Cells Rare (NONE/RARE) #/LPF Urine Crystals Seen A (None Seen) #/HPF Amorphous Sediment Few Urine Bacteria None seen (NONE SEEN) #/HPF Urine Casts Seen A (NONE SEEN) #/LPF Hyaline Casts Moderate Fine Granular Casts Few Urine Mucus Small A (NONE SEEN) Urine Opiates Screen Positive A (NEGATIVE) Ur Buprenorphine Scrn Negative (NEGATIVE) Ur Oxycodone Screen Negative (NEGATIVE) Urine Methadone Screen Negative (NEGATIVE) Ur Barbiturates Screen Negative (NEGATIVE) U Tricyclic Antidepress Negative (NEGATIVE) Ur Phencyclidine Scrn Negative (NEGATIVE) Ur Amphetamines Screen Negative (NEGATIVE) U Methamphetamines Scrn Negative (NEGATIVE) U Benzodiazepines Scrn Positive A (NEGATIVE) Urine Cocaine Screen Negative (NEGATIVE) U Cannabinoids Screen Positive A (NEGATIVE) ECG Data Attestation: I personally reviewed and interpreted this ECG as follows: (EKG interpretation. Normal sinus rhythm at 96 beats a minute. Normal axis deviation. No acute ST elevation, no acute ectopy. QTc of 393.) Discharge Plan Discharge Chief Complaint: Upper Respiratory Infection Clinical Impression: Alcohol dependence, Sinus congestion, Alcoholic hepatitis, Vomiting, Dehydration Patient Disposition: Home, Self-Care Time of Disposition Decision: 19:20 Condition: Fair Prescriptions / Home Meds: No Action levofloxacin 750 mg tablet 750 mg PO DAILY ondansetron 4 mg tablet,disintegrating 4 mg PO Q6H PRN (Reason: nausea and vomiting) benzonatate 200 mg capsule 200 mg PO TID Instructions: Dehydration (ED), Abuse of Alcohol (ED), Acute Nausea and Vomiting (ED), Alcohol Dependence (ED), Alcoholic Hepatitis (ED) Additional Instructions: Continue to keep increasing fluids at home, Gatorade, Powerade, water. He is nausea medication as needed. Your abusing alcohol daily, he already have signs of alcoholic hepatitis. You need to find resources of therapy, alcohol's anonymous, or check into rehabilitation. Your PCP can help with alcohol dependence. May return back to work tomorrow. 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 Good luck to you Stand Alone Forms: Portal Instructions Referrals: Serge Umaña MD [Primary Care Provider] - 1 week
[2023-10-28 18:22] LABS: Bilirubin Urine MODERATE (NEGATIVE); Blood Urine NEGATIVE (NEGATIVE); Clarity Urine CLEAR (CLEAR); Color Urine DK. YELLOW (YELLOW); Glucose Urine UA NEGATIVE (NEGATIVE); Ketones Urine TRACE mg/dL (NEGATIVE); Leukocyte Esterase Urine NEGATIVE (NEGATIVE); Nitrite Urine NEGATIVE (NEGATIVE); Protein Urine 100 mg/dL (NEG/TRACE); Specific Gravity Urine >=1.030 (1.005-1.025)
--- NOTE | 2023-10-28 18:25 | XR_ITS ---
The [address] [address] Patient Name: SHAHIDA ALVAREZ MRN: [id number] date: 1995 Sex: M Assigned Patient Location: ER Current Patient Location: ER Accession/Order Number: [id number] Exam Date: 10/28/2023 18:22 Report Date: 10/28/2023 19:13 At the request of: LUCIANO SMILEY Procedure: XR chest 1V EXAM: XR chest 1V HISTORY: vomiting COMPARISON: 08/09/2023 TECHNIQUE: Single view of the chest FINDINGS: Heart size normal. No focal consolidation, pleural effusion, pulmonary congestion or pneumothorax. Patient is rotated. XR/XR chest 1V IMPRESSION: No acute findings. Electronically authenticated by: GE BYRD Date: 10/28/2023 19:13
[2023-10-28] MEDS: PROCHLORPERAZINE 10 MG/2 ML VIAL IV (18:26)
[2023-10-28 18:28] LABS: Basophils Absolute Auto 0.1 10^3/uL (0.0-0.1); Basophils Percent Auto 0.6 % (0.2-2.0); Eosinophils Percent Auto 0.2 % (0.9-7.0); Hematocrit 51.7 % (42.0-54.0); Hemoglobin 17.6 g/dL (14.0-18.0); Immature Granulocytes Abs Auto 0.05 10^3/uL (0.00-0.03); Immature Granulocytes Pct Auto 0.5 % (0.0-0.5); Lymphocytes Absolute Auto 1.7 10^3/uL (1.2-3.8); Lymphocytes Percent Auto 16.3 % (20.5-60.0); Mean Corpuscular Hemoglobin 32.6 pg (25.9-34.0); Mean Corpuscular Volume 95.7 fL (80.0-94.0); Mean Platelet Volume 9.6 fL (9.5-13.5); Monocytes Absolute Auto 1.5 10^3/uL (0.3-0.8); Neutrophils Absolute Auto 7.1 10^3/uL (1.4-6.5); Neutrophils Percent Auto 68.4 % (43.0-75.0); Platelet Count 265 10^3/uL (150-450); Red Cell Distribution Width 12.3 % (11.0-15.0); White Blood Count 10.4 10^3/uL (4.0-11.0)
[2023-10-28 18:32] LABS: Amorphous Sediment Urine FEW; Bacteria Urine NONE SEEN #/HPF (NONE SEEN); Cast Seen? SEEN #/LPF (NONE SEEN); Crystals Seen? Seen #/HPF (None Seen); Mucus Urine SMALL (NONE SEEN); RBC Urine 0-2 #/HPF (0-2); Squamous Epithelial Cell Urine RARE #/LPF (NONE/RARE); WBC Urine 0-2 #/HPF (NONE SEEN)
[2023-10-28 18:33] LABS: Amphetamine Screen Urine NEGATIVE (NEGATIVE); Barbiturates Screen Urine NEGATIVE (NEGATIVE); Benzodiazepines Screen Urine POSITIVE (NEGATIVE); Buprenorphine Screen Urine NEGATIVE (NEGATIVE); Cannabinoid Screen Urine POSITIVE (NEGATIVE); Cocaine Screen Urine NEGATIVE (NEGATIVE); Fine Granular Casts Urine FEW; Hyaline Casts Urine MODERATE; Methadone Screen Urine NEGATIVE (NEGATIVE); Methamphetamines Screen Urine NEGATIVE (NEGATIVE); Opiate Screen Urine POSITIVE (NEGATIVE); Oxycodone Screen Urine NEGATIVE (NEGATIVE); Phencyclidine Screen Urine NEGATIVE (NEGATIVE); Tricyclic Antidepressant Urine NEGATIVE (NEGATIVE)
[2023-10-28 18:41] LABS: Alanine Aminotransferase 219 U/L (16-63); Albumin Globulin Ratio 1.2; Albumin Level 4.7 g/dL (3.4-5.0); Alkaline Phosphatase 89 U/L (46-116); Anion Gap 26.1; Aspartate Amino Transferase 190 U/L (15-37); BUN Creatinine Ratio 5.6; Bilirubin Total 0.8 mg/dL (0.2-1.0); Carbon Dioxide 18.5 mmol/L (21.0-32.0); Chloride 96 mmol/L (98-107); Estimated GFR (African America >60 (>=60); Estimated GFR (Non-African Ame >60 (>=60); Globulin 3.8 g/dL; Glucose 96 mg/dL (74-106); Potassium 3.6 mmol/L (3.5-5.1); Sodium 137 mmol/L (136-145); Total Protein 8.5 g/dL (6.4-8.2)
[2023-10-28 18:43] LABS: Magnesium 1.7 mg/dL (1.8-2.4); Troponin I High Sensitivity <4.0 pg/mL (4.0-76.1)
[2023-10-28] MEDS: 0.9 % SODIUM CHLORIDE 1,000 ML 1000 ML IV (19:35)
[2023-10-28] MEDS: MAGNESIUM OXIDE 400 MG TABLET 800 MG PO (19:35)
[2023-10-28 19:42] LABS: Influenza Virus A Antigen Negative; Influenza Virus B Antigen Negative; Internal Control Within Normal Limits; SARS-CoV-2 Ag NEGATIVE (NEGATIVE)
[2023-10-28] MEDS: ONDANSETRON PF 4 MG/2 ML VIAL IV (20:37)
== END 2023-10-28 20:45 | disposition home or self-care (01) ==
PROVIDERS: Emergency Provider Emergency Medicine; PCP Family Medicine
DX: E86.0 Dehydration (principal); R11.10 Vomiting, unspecified; K70.10 Alcoholic hepatitis without ascites; F10.20 Alcohol dependence, uncomplicated; R09.81 Nasal congestion; F17.210 Nicotine dependence, cigarettes, uncomplicated; F12.90 Cannabis use, unspecified, uncomplicated; Z90.49 Acquired absence of other specified parts of digestive tract; Z98.890 Other specified postprocedural states; F90.9 Attention-deficit hyperactivity disorder, unspecified type; F41.9 Anxiety disorder, unspecified; Z79.899 Other long term (current) drug therapy
CPT/HCPCS: 36415; 71045; 80053; 80307; 81001; 83690; 83735; 84484; 85025; 87804; 87811; 93005; 96361; 96374; 96375; 99285; J0780; J2405

== ENCOUNTER 2024-01-08 15:16 | Emergency (ER) | payer SELFPAY ==
[2024-01-08] VITALS (19 sets, daily range): BP systolic 120–144; BP diastolic 77–85; PULSE 96–105; TEMP 36.7; O2SAT 95–98; BMI 22.2
--- OUTSIDE RECORDS SUMMARY | 2024-01-08 15:21 | XMS_ITS | CCD ---
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 approximately 2-3 times per week to help [...] Mr. Alvarez notes he was born in [place], [place] and currently resides in [place], [place] with his girlfriend, and multiple members [...] Mr. Alvarez reports he struggled substantially in [employer] classes and notes he participated in speech therapy for approximately two years, noting I had a hard time forming words. Ms. Alvarez reports Mr. Alvarez repeated the first grade as he was not ready for school. VOCATIONAL HISTORY: Mr. 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 Mr. Alvarez was also administered a reading [...] estimated IQ in the high average range (JLFT=071), consistent with predicted intellectual abilities suggesting no [...] aids. j) Use a pocket notepad, personal vp digital marketing, wristwatch alarm, voice recorder, pill box, or [...] If you have any questions, please call [phone]. DICTATED BY: Ramsey Alejandra, PhD Neuropsychology Fellow REVIEWED BY: Electronically Signed by: Mariana Aguirre, PhD, ABPP 08/02/2018 08:57 A _ Mariana Aguirre, PhD, ABPP Board Certified Clinical Neuropsychologist Date Dict: 07/20/2018/11:36 A/Ramsey Alejandra, PhD Date Trans: 07/20/2018 12:47 P/mmo [id number] cc: Mariana Aguirre, PhD, ABPP [address] [facility] [address] Cheo Cavazos D[address]O. [address] [place] [id number] *Mr. Martin Alvarez [address] [place] [address] Normal [facility] Vital Signs Date Time Vital Sign Value Performing Clinician Jan sams 05-18-2023 15:44-0400 Blood Pressure Location Momo NILL [facility] 05-18-2023 15:44-0400 Diastolic blood pressure 82 mm[Hg] Momo NILL [facility] 05-18-2023 15:44-0400 Heart rate 74 /min Momo NILL [facility] 05-18-2023 15:44-0400 Respiratory rate 16 /min Momo NILL [facility] 05-18-2023 15:44-0400 Systolic blood pressure 144 mm[Hg] Momo NILL [facility] Encounters Encounter Date Encounter Type Care Provider Facility Start: 06-14-2023 End: 06-15-2023 ambulatory Momo R NILL [facility]: [facility] Start: 06-01-2023 End: 06-02-2023 ambulatory Momo R NILL Facility:CD:[id number] Start: 05-18-2023 End: 05-19-2023 ambulatory Momo R NILL Facility:[facility] Start: 05-18-2023 End: 05-18-2023 Patient encounter procedure Momo Sanders NILL [facility] Start: 04-21-2023 ambulatory Momo DEE [facility] Start: 02-03-2023 End: 02-03-[address] ARLENE CORMIER . Facility: Start: 11-18-2022 End: 11-18-2022 ambulatory HCRISTAL DOMINGUEZ Facility:[facility] Start: 07-22-2022 End: 07-22-[address] CISCO UMAÑA . Facility: Start: 02-12-[address] CISCO UMAÑA . Facili ty: Start: 07-20-2018 End: 08-19-2018 Patient encounter procedure CHEO CAVAZOS Facility:[facility] Start: 07-19-2018 End: 07-20-2018 Patient encounter procedure CHEO CAVAZOS Facility:[facility] Start: 05-03-2018 End: 05-04-2018 Patient encounter procedure DEFAULT PHYSICIAN Facility:[facility] Procedures Date Procedure Procedure Detail Performing Clinician Cholecystectomy Momo TOMMohan Colonoscopy Momo DEE Esophagogastroduodenoscopy Rossana estradajavi SANTOSMohan Immunizations Immunization Date Immunization Notes Care Provider Fa cili 10-29-2021 SARS-CoV-2 (COVID-19 ) mRNA BNT-162b2 vax Momo SANTOSL [facility] Comment on above: Result Comment: 2022: TPVALL 05-11-2021 SARS-CoV-2 (COVID-19 ) mRNA BNT-162b2 vax Momo NILL [facility] Comment on above: Result Comment: 2022: TPVALL 04-20-2021 SARS-CoV-2 (COVID-19 ) mRNA BNT-162b2 vax Momo NILL [facility] Comment on above: Result Comment: 2022: TPVALL Payers Date Payer Category Payer Unknown [id number] 1995 Unknown [id number] 2.16.8 [id number] 1995 Unknown [id number] 2.16.8 [id number] 1994 Unknown [id number] 2.16.8 [id number] 1994 Unknown [id number] 2.16.84 [id number] 1994 Unknown [id number] 2.16.84 [id number] 1994 Unknown [id number] 2.16.84 [id number] 1994 Unknown [id number] 2.16.84 [id number] 1994 Unknown [id number] 2.16.8 [id number] 1994 Unknown [id number] 2.16.8 [id number] 1994 Unknown [id number] 2.16.8 [id number] 1960 Self-pay [id number] 1960 Self-pay Unknown Social History Date Type Detail Facility Start: 05-18-2023 Tobacco smoking status Heavy t obacco smoker (finding) [facility] Tobacco smoking status Former sm okeless tobacco user, quit more than 30 days ago [facility] Sex Assigned At Male [facility] Functional Status Date Assessment Result Facility 05-18-2023 Functional Status N/A [facility] Clinical Note 05-18-2023 Note Date & Type Note Facility 05-18-2023 Note Chief Complaint consultation for rectal bleeding HPI Staff 28 year old male presents on consultation from Dr. Umaña for rectal bleeding. Presented to [facility] 04/14 with complaint of rectal bleeding [...] qualifying data Procedure/Surgical (more content not included)... [facility] Comment on above: Result Comment: Elec tronically Signed By: LEILA HERRERA, Momo Burleson\Date and Time Signed: 05/18/23 16:35 EDT History and physical note 04-29-2023 Note Date & Type Note Facility 04-29-2023 Note [id number] [facility] Evaluation + Plan note Note Date & Type Note Facility Evaluation + Plan note No data available for this section [facility] Discharge instructions Note Date & Type Note Facility Hospital Discharge instructions No data available for this section [facility] Progress note Note Date & Type Note Facility Progress note No data available for this section [facility] Summary Purpose Family History No Family History Records FoundNo Family History Records FoundNo Family History Records Found Advance Directives No Advanced Directives Records FoundNo Advanced Directives Records FoundNo Advanced Directives Records Found Additional Source Comments (unrecognized sect ion and content) No Status Records FoundNo Status Records FoundNo Status Records Found INFORMATION SOURCE (unrecogn ized section and content) DATE CREATED AUTHOR 11/07/[address] [facility] DATE CREATED AUTHOR AUTHOR'S ORGANIZ ATION 02/03/2023 [facility] DATE CREATED AUTHOR AUTHOR'S ORGANIZ ATION 06/22/2023 [facility] Patient Care team informatio n (unrecognized section and content) Personnel Name: Cisco Umaña MD Address: Address: [address] [place] [address] FOR RECORDS PERTAINING TO PATIENTS WHO ARE [...] BE BASED ON THE PRIMARY CLINICAL RECORDS. [facility]. provides no warranty or guarantee of the accuracy or completeness of information in this document.
--- NOTE | 2024-01-08 15:28 | CT_ITS ---
[address] [address] Patient Name: SHAHIDA ALVAREZ MRN: [id number] date: 1995 Sex: M Assigned Patient Location: ER Current Patient Location: ER Accession/Order Number: [id number] Exam Date: 01/08/2024 16:10 Report Date: 01/08/2024 17:04 At the request of: DULCE BLOCK Procedure: CT abdomen pelvis w con EXAMINATION: CT abdomen pelvis w con, 01/08/2024 1:10 PM PDT HISTORY: low abd pain COMPARISON: 04/15/2023 TECHNIQUE: CT scan of the abdomen and pelvis was performed with IV contrast. CT dose reduction technique was used, including Automated Exposure Control. FINDINGS: Lung: No significant finding. Liver: Hepatic steatosis. Gallbladder: Absent. Spleen: No significant finding. Pancreas: No significant finding. Adrenal glands: No significant finding. Kidneys, ureters and bladder: No significant finding. Bowel: Moderately edematous ascending, transverse and descending colon. Mild wall thickening of the sigmoid colon. Mild wall thickening of the rectum. Normal appendix. No evidence of bowel obstruction. Peritoneum/retroperitoneum: Mild pericolonic stranding. Lymph nodes: No significant finding. Vessels: No significant finding. Body wall: No significant finding. Reproductive: No significant finding. Bones: No significant finding. CT/CT abdomen pelvis w con IMPRESSION: Proctitis and moderate severity pancolitis. Hepatic steatosis. Electronically authenticated by: GE BYRD Date: 01/08/2024 17:04
--- NOTE | 2024-01-08 15:29 | ED.ABDPAIN1 ---
HPI - Abdominal Pain General Chief Complaint: Abdominal Pain Stated Complaint: Abdominal Pain Time Seen by Provider: 01/08/24 15:21 Source: patient Mode of arrival: walk-in Limitations: no limitations History of Present Illness HPI narrative: 29-year-old male presents for lower abdominal pain. It started after he vomited today. He states he vomits every day since he was a little kid. He has seen a specialist in the remote past but not anytime recently. He has had some diarrhea and always has a little bit of blood in his stool, that is unchanged. No fever or injury. The pain is moderate to severe and continuous. Related Data Allergies Allergy/AdvReac Type Severity Reaction Status Date / Time No Known Drug Allergies Allergy Verified 05/30/23 12:31 Review of Systems ROS Narrative A ten point review of systems is negative except as noted above. [facility] Medical History (Updated 01/08/24 @ 17:56 by Tano Yanez MD) Chronic cough ?R05.3 - Chronic cough (ICD-10) Nausea & vomiting ?R11.2 - Nausea with vomiting, unspecified (ICD-10) Prostatitis ?N41.9 - Inflammatory disease of prostate, unspecified (ICD-10) Fatty liver ?K76.0 - Fatty (change of) liver, not elsewhere classified (ICD-10) Chronic alcoholism ?F10.20 - Alcohol dependence, uncomplicated (ICD-10) Anxiety ?F41.9 - Anxiety disorder, unspecified (ICD-10) ADHD ?F90.9 - Attention-deficit hyperactivity disorder, unspecified type (ICD-10) Abdominal pain ?R10.9 - Unspecified abdominal pain (ICD-10) Diverticulosis ?K57.90 - Diverticulosis of intestine, part unspecified, without perforation or abscess without bleeding (ICD-10) 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 - Intussusception (ICD-10) GI bleeding ?K92.2 - Gastrointestinal hemorrhage, unspecified (ICD-10) Surgical History (Updated 04/14/23 @ 08:24 by Fatimah Garrido) H/O esophagogastroduodenoscopy ?Z98.890 - Other specified postprocedural states (ICD-10) H/O colonoscopy ?Z98.890 - Other specified postprocedural states (ICD-10) Hx of cholecystectomy ?Z90.49 - Acquired absence of other specified parts of digestive tract (ICD-10) Family History (Updated 05/19/23 @ 11:41 by Jewels Case RN) Other Multiple sclerosis Social History (Updated 04/14/23 @ 08:27 by Fatimah Garrido) Within the past year, how often did you have a drink containing alcohol: 2-4 times a month Within the past year, how many standard drinks containing alcohol did you have on a typical day: 3 or 4 Within the past year, how often did you have six or more drinks on one occasion: less than monthly Total score: 3 Score interpretation: A score of 4 or more indicates drinking is likely to affect patient's safety. Smoking status: Heavy tobacco smoker Do you use any of these nicotine containing products: vaping products and smokeless tobacco Non-prescribed substance use: cannabis (any form) Previous occupational history: current, [employer] Highest level of school completed/degree received: GED or equivalent Are you now , , , , never or living with a partner: living with partner Little interest or pleasure in doing things: more than half the days Feeling down, depressed, or hopeless: several days Exam Narrative Exam Narrative: Nurses note and vital signs reviewed and patient is not hypoxic. General: The patient appears uncomfortable Skin: Warm, dry, no pallor noted. There is no rash noted. Head: Normocephalic, atraumatic Eye: Normal conjunctiva, no drainage Ears, Nose, Mouth, and Throat: oral mucosa is moist. Nares patent. Cardiovascular: Regular Rate and Rhythm Respiratory: Patient is in no distress, no accessory muscle use, lungs are clear to auscultation, no wheezing, rales or rhonchi Back: non-tender GI: Tender in the low abdomen without distention or mass Musculoskeletal: The patient has no evidence of calf tenderness, no pitting edema, symmetrical pulses noted bilaterally Neurological: A&O, normal speech Psychiatric: Cooperative Constitutional Vital Signs, click to edit/add: Last Vital Signs Temp 98.1 F 01/08/24 15:20 Pulse 105 H 01/08/24 15:20 Resp 18 01/08/24 15:20 BP 133/83 01/08/24 17:01 Pulse Ox 97 01/08/24 17:10 O2 Del Method Room Air 01/08/24 15:20 Course Vital Signs Vital signs: Vital Signs Temperature 98.1 F 01/08/24 15:20 Pulse Rate 105 H 01/08/24 15:20 Respiratory Rate 18 01/08/24 15:20 Blood Pressure 144/85 H 01/08/24 15:20 Pulse Oximetry 97 01/08/24 15:20 Oxygen Delivery Method Room Air 01/08/24 15:20 Temperature 98.1 F 01/08/24 15:20 Pulse Rate 105 H 01/08/24 15:20 Respiratory Rate 18 01/08/24 15:20 Blood Pressure 133/83 01/08/24 17:01 Pulse Oximetry 97 01/08/24 17:10 Oxygen Delivery Method Room Air 01/08/24 15:20 MDM - Abdominal Pain MDM Narrative Medical decision making narrative: Colitis and proctitis are identified. The patient has discomfort and will be admitted for IV antibiotics and pain control. There is no evidence of complication such as perforation or abscess. He was ordered Cipro and Flagyl. Treatment diagnosis and disposition were discussed with the patient. Differential Diagnosis Differential diagnosis: Likely abdominal pain, acute appendicitis, calculus of kidney, constipation, diverticulitis, gastroenteritis, small bowel obstruction and other (Colitis) Lab Data Attestation: I reviewed the patient's lab results. Labs: Lab Results 01/08/24 Range/Units 15:24 WBC 12.0 H (4.0-11.0) 10^3/uL RBC 4.71 (4.70-6.10) 10^6/uL Hgb 16.0 (14.0-18.0) g/dL Hct 46.8 (42.0-54.0) % MCV 99.4 H (80.0-94.0) fL MCH 34.0 (25.9-34.0) pg MCHC 34.2 (29.9-35.2) g/dL RDW 12.0 (11.0-15.0) % Plt Count 196 (150-450) 10^3/uL MPV 9.4 L (9.5-13.5) fL Seg Neuts % (Manual) 84.0 Band Neutrophils % 1.0 (0-5) % Lymphocytes % (Manual) 5.0 L (20.5-60.0) % Monocytes % (Manual) 10.0 (1.7-12.0) % Eosinophils % (Manual) 0.0 L (0.9-7.0) % Basophils % (Manual) 0.0 L (0.2-2.0) % Neutrophils # (Manual) 10.08 H (1.4-6.5) 10^3/uL Band Neutrophils # 0.1 (0.0-0.3) 10^3/uL Lymphocytes # (Manual) 0.60 L (1.20-3.80) 10^3/uL Monocytes # (Manual) 1.20 H (0.30-0.80) 10^3/uL Eosinophils # (Manual) 0.00 (0.00-0.70) 10^3/uL Basophils # (Manual) 0.00 (0.00-0.10) 10^3/uL Sodium 133 L (136-145) mmol/L Potassium 3.5 (3.5-5.1) mmol/L Chloride 97 L (98-107) mmol/L Carbon Dioxide 19.4 L (21.0-32.0) mmol/L Anion Gap 20.1 BUN 4.0 L (7.0-18.0) mg/dL Creatinine 0.74 (0.70-1.30) mg/dL Est GFR ( Amer) >60 (>=60) Est GFR (Non-Af Amer) >60 (>=60) BUN/Creatinine Ratio 5.4 Glucose 99 (74-106) mg/dL Calcium 9.9 (8.5-10.1) mg/dL Total Bilirubin 0.7 (0.2-1.0) mg/dL Direct Bilirubin 0.2 (0.0-0.2) mg/dL AST 230 H (15-37) U/L ALT 261 H (16-63) U/L Alkaline Phosphatase 91 (46-116) U/L Total Protein 7.5 (6.4-8.2) g/dL Albumin 4.1 (3.4-5.0) g/dL Globulin 3.4 g/dL Albumin/Globulin Ratio 1.2 Amylase 32 (25-115) U/L Lipase 20.0 (16.0-77.0) U/L Imaging Data CT scan - abdomen: Radiologist's impression: ITS Impressions Abdomen/Pelvis CT 04/21/24 15:28 IMPRESSION: Proctitis and moderate severity pancolitis. Hepatic steatosis. Electronically authenticated by: GE BYRD Date: 01/08/2024 17:04 Discharge Plan Discharge Chief Complaint: Abdominal Pain Clinical Impression: Acute proctitis, Colitis Patient Disposition: Admitted As Inpatient Time of Disposition Decision: 17:56 Condition: Good
[2024-01-08] MEDS: 0.9 % SODIUM CHLORIDE 1,000 ML 1000 ML IV (15:38)
[2024-01-08] MEDS: ONDANSETRON PF 4 MG/2 ML VIAL IV (15:38)
[2024-01-08 15:40] LABS: Hematocrit 46.8 % (42.0-54.0); Mean Corpuscular HGB Conc 34.2 g/dL (29.9-35.2); Mean Corpuscular Volume 99.4 fL (80.0-94.0); Mean Platelet Volume 9.4 fL (9.5-13.5); Platelet Count 196 10^3/uL (150-450); Red Blood Count 4.71 10^6/uL (4.70-6.10)
[2024-01-08 15:50] LABS: Alanine Aminotransferase 261 U/L (16-63); Albumin Globulin Ratio 1.2; Albumin Level 4.1 g/dL (3.4-5.0); Alkaline Phosphatase 91 U/L (46-116); Amylase 32 U/L (25-115); Anion Gap 20.1; Aspartate Amino Transferase 230 U/L (15-37); BUN Creatinine Ratio 5.4; Bilirubin Direct 0.2 mg/dL (0.0-0.2); Bilirubin Total 0.7 mg/dL (0.2-1.0); Calcium 9.9 mg/dL (8.5-10.1); Carbon Dioxide 19.4 mmol/L (21.0-32.0); Chloride 97 mmol/L (98-107); Estimated GFR (African America >60 (>=60); Estimated GFR (Non-African Ame >60 (>=60); Globulin 3.4 g/dL; Glucose 99 mg/dL (74-106); Potassium 3.5 mmol/L (3.5-5.1); Sodium 133 mmol/L (136-145); Total Protein 7.5 g/dL (6.4-8.2)
[2024-01-08 15:59] LABS: Band Neutrophils Absolute 0.1 10^3/uL (0.0-0.3); Segmented Neut Absolute Manual 10.08 10^3/uL (1.4-6.5)
[2024-01-08] MEDS: CIPROFLOXACIN IN 5 % DEXTROSE 400 MG/200 ML PIGGYBACK 200 MG IV (18:11)
[2024-01-08] MEDS: KETOROLAC TROMETHAMINE 30 MG/ML VIAL IVP (18:20)
[2024-01-08] MEDS: METRONIDAZOLE 250 MG TABLET 500 MG PO (18:55)
== END 2024-01-08 19:24 | disposition left against medical advice (07) ==
PROVIDERS: Emergency Provider Emergency Medicine; PCP Family Medicine
DX: K52.9 Noninfective gastroenteritis and colitis, unspecified (principal); K62.89 Other specified diseases of anus and rectum; Z53.29 Procedure and treatment not carried out because of patient's decision for other reasons; F10.20 Alcohol dependence, uncomplicated; F41.9 Anxiety disorder, unspecified; F90.9 Attention-deficit hyperactivity disorder, unspecified type; Z98.890 Other specified postprocedural states; Z90.49 Acquired absence of other specified parts of digestive tract; F12.90 Cannabis use, unspecified, uncomplicated; F17.290 Nicotine dependence, other tobacco product, uncomplicated; F17.220 Nicotine dependence, chewing tobacco, uncomplicated
CPT/HCPCS: 36415; 74177; 80048; 80076; 82150; 83690; 85007; 85027; 96361; 96374; 96375; 99285; Q9967

== ENCOUNTER 2024-01-09 18:25 | Inpatient (IN) | payer SELFPAY ==
[2024-01-09] VITALS (9 sets, daily range): BP systolic 117–142; BP diastolic 81–83; PULSE 74–106; TEMP 36.6–36.8; O2SAT 33–99; BMI 26.5; BMI 22.8
--- OUTSIDE RECORDS SUMMARY | 2024-01-09 18:37 | XMS_ITS | CCD ---
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 15:44-0400 Respiratory rate 16 /min Momo NILL [facility] 05-18-2023 15:44-0400 Systolic blood pressure 144 mm[Hg] Mom[facility] N[facility] Encounters Encounter Date Encounter Type Care Provider Facility Start: 06-14-2023 End: 06-15-2023 ambulatory Momo R NILL [facility]: [facility] Start: 06-01-2023 End: 06-02-2023 ambulatory Momo R NILL Facility:CD:[id number] Start: 05-18-2023 End: 05-19-2023 ambulatory Momo [...] End: 08-19-2018 Patient encounter procedure CHEO CAVAZOS Facility:[facility] Start: 07-19-2018 End: 07-20-2018 Patient encounter procedure CHEO CAVAZOS Facility:[facility] Start: 05-03-2018 End: 05-04-2018 Patient encounter procedure DEFAULT PHYSICIAN Facility:[facility] Procedures Date Procedure Procedure Detail Performing Clinician Cholecystectomy Momo TOMMohan Colonoscopy Momo DEE Esophagogastroduodenoscopy Rossana estradajavi SANTOSMohan Immunizations Immunization Date Immunization Notes Care Provider Fa cili 10-29-2021 SARS-CoV-2 (COVID-19 ) mRNA BNT-162b2 vax Momo SANTOSL [facility] Comment on above: Result Comment: 2022: TPVALL 05-11-2021 SARS-CoV-2 (COVID-19 ) mRNA BNT-162b2 vax Momo NILL [facility] Comment on above: Result Comment: 2022: TPVALL 04-20-2021 SARS-CoV-2 (COVID-19 ) mRNA BNT-162b2 vax Momo NILL [facility] Comment on above: Result Comment: 2022: TPVALL Payers Date Payer Category Payer Unknown [id number] 1995 Unknown [id number] 2.16.8 [id number] 1994 Unknown [id number] 2.16.8 [id number] 1994 Unknown [id number] 2.16.8 [id number] 1994 Unknown [id number] 2.16.84 [id number] 1994 Unknown [id number] 2.16.84 [id number] 1994 Unknown [id number] 2.16.84 [id number] 1994 Unknown [id number] 2.16.84 [id number] 1994 Unknown [id number] 2.16.8 [id number] 1994 Unknown [id number] 2.16.8 [id number] 1994 Unknown [id number] 2.16.8 [id number] 1959 Self-pay [id number] 1960 Self-pay Unknown Social History Date Type Detail Facility Start: 05-18-2023 Tobacco smoking status Heavy t obacco smoker (finding) [facility] Tobacco smoking status Former sm okeless tobacco user, quit more than 30 days ago [facility] Sex Assigned At Male [facility] Functional Status Date Assessment Result Facility 05-18-2023 Functional Status N/A [facility] Clinical Note 05-18-2023 Note Date & Type Note Facility 05-18-2023 Note Chief Complaint consultation for rectal bleeding HPI Staff 28 year old male presents on consultation from Dr. Umaña for rectal bleeding. Presented to [facility] 04/14 with complaint of rectal bleeding [...] qualifying data Procedure/Surgical (more content not included)... [facility] Comment on above: Result Comment: Elec tronically Signed By: LEILA HERRERA, Momo Burleson\Date and Time Signed: 05/18/23 16:35 EDT History and physical note 04-29-2023 Note Date & Type Note Facility 04-29-2023 Note [id number] #[id number] [facility] Evaluation + Plan note Note Date & Type Note Facility Evaluation + Plan note No data available for this section [facility] Discharge instructions Note Date & Type Note Facility Hospital Discharge instructions No data available for this section [facility] Progress note Note Date & Type Note Facility Progress note No data available for this section [facility] Summary Purpose Family History No Family History Records FoundNo Family History Records FoundNo Family History Records Found Advance Directives No Advanced Directives Records FoundNo Advanced Directives Records FoundNo Advanced Directives Records Found Additional Source Comments (unrecognized sect ion and content) No Status Records FoundNo Status Records FoundNo Status Records Found INFORMATION SOURCE (unrecogn ized section and content) DATE CREATED AUTHOR 11/07/2018 [facility] DATE CREATED AUTHOR AUTHOR'S ORGANIZ ATION 02/03/2023 [facility] DATE CREATED AUTHOR AUTHOR'S ORGANIZ ATION 06/22/2023 [facility] Patient Care team informatio n (unrecognized section and content) Personnel Name: Cisco Umaña MD Address: Address: [address] [place] [address] FOR RECORDS PERTAINING TO PATIENTS WHO ARE [...] BE BASED ON THE PRIMARY CLINICAL RECORDS. [facility]. provides no warranty or guarantee of the accuracy or completeness of information in this document.
[2024-01-09] MEDS: 0.9 % SODIUM CHLORIDE 1,000 ML 999 ML IV (19:15)
--- NOTE | 2024-01-09 19:15 | ED_ITS ---
HPI - Abdominal Pain General Chief Complaint: Abdominal Pain Stated Complaint: abdominal pain Time Seen by Provider: 01/09/24 18:44 Source: patient Mode of arrival: Wheelchair Limitations: no limitations History of Present Illness HPI narrative: 29-year-old male presents for abdominal pain. He was seen here yesterday and was diagnosed with colitis and proctitis. He was to be admitted to the hospital but refused and signed out AGAINST MEDICAL ADVICE. He was discharged home on Cipro and Flagyl. He continues to have pain and is having watery diarrhea. He has seen blood in it as well. He has been dry heaving but no hematemesis. He has not had a fever. The pain is moderate to severe and continuous. Related Data Previous Rx's ?Medication ?Instructions ?Recorded ciprofloxacin HCl 500 mg tablet 500 mg PO Q12H #20 tabs 01/08/24 (Cipro) metronidazole 500 mg tablet 500 mg PO TID #30 tabs 01/08/24 Allergies Allergy/AdvReac Type Severity Reaction Status Date / Time No Known Drug Allergies Allergy Verified 05/30/23 12:31 Review of Systems ROS Narrative A ten point review of systems is negative except as noted above. [facility] Medical History (Updated 01/08/24 @ 17:56 by Tano Yanez MD) Chronic cough ?R05.3 - Chronic cough (ICD-10) Nausea & vomiting ?R11.2 - Nausea with vomiting, unspecified (ICD-10) Prostatitis ?N41.9 - Inflammatory disease of prostate, unspecified (ICD-10) Fatty liver ?K76.0 - Fatty (change of) liver, not elsewhere classified (ICD-10) Chronic alcoholism ?F10.20 - Alcohol dependence, uncomplicated (ICD-10) Anxiety ?F41.9 - Anxiety disorder, unspecified (ICD-10) ADHD ?F90.9 - Attention-deficit hyperactivity disorder, unspecified type (ICD-10) Abdominal pain ?R10.9 - Unspecified abdominal pain (ICD-10) Diverticulosis ?K57.90 - Diverticulosis of intestine, part unspecified, without perforation or abscess without bleeding (ICD-10) 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 - Intussusception (ICD-10) GI bleeding ?K92.2 - Gastrointestinal hemorrhage, unspecified (ICD-10) Surgical History (Updated 04/14/23 @ 08:24 by Fatimah Garrido) H/O esophagogastroduodenoscopy ?Z98.890 - Other specified postprocedural states (ICD-10) H/O colonoscopy ?Z98.890 - Other specified postprocedural states (ICD-10) Hx of cholecystectomy ?Z90.49 - Acquired absence of other specified parts of digestive tract (ICD- 10) Family History (Updated 05/19/23 @ 11:41 by Jewels Case RN) Other Multiple sclerosis Social History (Updated 04/14/23 @ 08:27 by Fatimah Garrido) Within the past year, how often did you have a drink containing alcohol: 2-4 times a month Within the past year, how many standard drinks containing alcohol did you have on a typical day: 3 or 4 Within the past year, how often did you have six or more drinks on one occasion: less than monthly Total score: 3 Score interpretation: A score of 4 or more indicates drinking is likely to affect patient's safety. Smoking status: Heavy tobacco smoker Do you use any of these nicotine containing products: vaping products and smokeless tobacco Non-prescribed substance use: cannabis (any form) Previous occupational history: current, [employer] Highest level of school completed/degree received: GED or equivalent Are you now , , , , never or living with a partner: living with partner Little interest or pleasure in doing things: more than half the days Feeling down, depressed, or hopeless: several days Exam Narrative Exam Narrative: Nurses note and vital signs reviewed and patient is not hypoxic. General: The patient appears well and in no apparent distress. Patient is resting comfortably on cart. Skin: Warm, dry, no pallor noted. There is no rash noted. Head: Normocephalic, atraumatic Eye: Normal conjunctiva, no drainage Ears, Nose, Mouth, and Throat: oral mucosa is moist. Nares patent. Cardiovascular: Regular Rate and Rhythm Respiratory: Patient is in no distress, no accessory muscle use, lungs are clear to auscultation, no wheezing, rales or rhonchi Back: non-tender GI: Nondistended, mild diffuse tenderness on palpation Musculoskeletal: The patient has no evidence of calf tenderness, no pitting edema, symmetrical pulses noted bilaterally Neurological: A&O, normal speech Psychiatric: Cooperative Constitutional Vital Signs, click to edit/add: Last Vital Signs Temp 98.2 F 01/09/24 18:45 Pulse 74 01/09/24 18:45 Resp 18 01/09/24 18:45 BP 142/83 H 01/09/24 18:45 Pulse Ox 99 01/09/24 18:45 O2 Del Method Room Air 01/09/24 18:45 Course Vital Signs Vital signs: Vital Signs Temperature 98.2 F 01/09/24 18:45 Pulse Rate 74 01/09/24 18:45 Respiratory Rate 18 01/09/24 18:45 Blood Pressure 142/83 H 01/09/24 18:45 Pulse Oximetry 99 01/09/24 18:45 Oxygen Delivery Method Room Air 01/09/24 18:45 Temperature 98.2 F 01/09/24 18:45 Pulse Rate 74 01/09/24 18:45 Respiratory Rate 18 01/09/24 18:45 Blood Pressure 142/83 H 01/09/24 18:45 Pulse Oximetry 99 01/09/24 18:45 Oxygen Delivery Method Room Air 01/09/24 18:45 MDM - Abdominal Pain MDM Narrative Medical decision making narrative: CAT scan from yesterday was reviewed. The patient is still symptomatic and is being admitted for IV Cipro and Flagyl. He is at risk for alcohol withdrawal and is requesting a nicotine patch as well. Findings were discussed with the patient. Differential Diagnosis Differential diagnosis: Likely abdominal pain, calculus of kidney, constipation, diverticulitis, gastroenteritis, pancreatitis, small bowel obstruction and other (Colitis) Lab Data Attestation: I reviewed the patient's lab results. Labs: Lab Results 01/09/24 Range/Units 19:00 WBC 7.7 (4.0-11.0) 10^3/uL RBC 4.66 L (4.70-6.10) 10^6/uL Hgb 15.6 (14.0-18.0) g/dL Hct 45.6 (42.0-54.0) % MCV 97.9 H (80.0-94.0) fL MCH 33.5 (25.9-34.0) pg MCHC 34.2 (29.9-35.2) g/dL RDW 12.1 (11.0-15.0) % Plt Count 155 (150-450) 10^3/uL MPV 9.2 L (9.5-13.5) fL Neut % (Auto) 72.2 (43.0-75.0) % Lymph % (Auto) 10.3 L (20.5-60.0) % [place] % (Auto) 15.9 H (1.7-12.0) % Eos % (Auto) 0.8 L (0.9-7.0) % Baso % (Auto) 0.4 (0.2-2.0) % Neut # (Auto) 5.5 (1.4-6.5) 10^3/uL Lymph # (Auto) 0.8 L (1.2-3.8) 10^3/uL [place] # (Auto) 1.2 H (0.3-0.8) 10^3/uL Eos # (Auto) 0.1 (0.0-0.7) 10^3/uL Baso # (Auto) 0.0 (0.0-0.1) 10^3/uL Abs Immat Gran (auto) 0.03 (0.00-0.03) 10^3/uL Imm/Tot Granulo (auto) 0.4 (0.0-0.5) % Sodium 134 L (136-145) mmol/L Potassium 3.0 L (3.5-5.1) mmol/L Chloride 97 L (98-107) mmol/L Carbon Dioxide 20.3 L (21.0-32.0) mmol/L Anion Gap 19.7 BUN 4.0 L (7.0-18.0) mg/dL Creatinine 0.70 (0.70-1.30) mg/dL Est GFR ( Amer) >60 (>=60) Est GFR (Non-Af Amer) >60 (>=60) BUN/Creatinine Ratio 5.7 Glucose 104 (74-106) mg/dL Lactate 3.2 H* (0.4-2.0) mmol/L Calcium 9.1 (8.5-10.1) mg/dL Total Bilirubin 0.3 (0.2-1.0) mg/dL AST 141 H (15-37) U/L ALT 169 H (16-63) U/L Alkaline Phosphatase 78 (46-116) U/L Total Protein 6.9 (6.4-8.2) g/dL Albumin 3.5 (3.4-5.0) g/dL Globulin 3.4 g/dL Albumin/Globulin Ratio 1.0 Lipase 169.0 H (16.0-77.0) U/L Discharge Plan Discharge Chief Complaint: Abdominal Pain Time of Disposition Decision: 20:26 Prescriptions / Home Meds: No Action metronidazole 500 mg tablet 500 mg PO TID Qty: 30 0RF ciprofloxacin HCl [Cipro] 500 mg tablet 500 mg PO Q12H Qty: 20 0RF Print Language: Turkish
[2024-01-09 19:19] LABS: Basophils Percent Auto 0.4 % (0.2-2.0); Eosinophils Absolute Auto 0.1 10^3/uL (0.0-0.7); Eosinophils Percent Auto 0.8 % (0.9-7.0); Hematocrit 45.6 % (42.0-54.0); Hemoglobin 15.6 g/dL (14.0-18.0); Immature Granulocytes Abs Auto 0.03 10^3/uL (0.00-0.03); Immature Granulocytes Pct Auto 0.4 % (0.0-0.5); Lymphocytes Absolute Auto 0.8 10^3/uL (1.2-3.8); Lymphocytes Percent Auto 10.3 % (20.5-60.0); Mean Corpuscular HGB Conc 34.2 g/dL (29.9-35.2); Mean Corpuscular Hemoglobin 33.5 pg (25.9-34.0); Mean Corpuscular Volume 97.9 fL (80.0-94.0); Mean Platelet Volume 9.2 fL (9.5-13.5); Monocytes Absolute Auto 1.2 10^3/uL (0.3-0.8); Monocytes Percent Auto 15.9 % (1.7-12.0); Neutrophils Absolute Auto 5.5 10^3/uL (1.4-6.5); Neutrophils Percent Auto 72.2 % (43.0-75.0); Platelet Count 155 10^3/uL (150-450); Red Blood Count 4.66 10^6/uL (4.70-6.10); Red Cell Distribution Width 12.1 % (11.0-15.0); White Blood Count 7.7 10^3/uL (4.0-11.0)
[2024-01-09 19:34] LABS: Alanine Aminotransferase 169 U/L (16-63); Albumin Level 3.5 g/dL (3.4-5.0); Alkaline Phosphatase 78 U/L (46-116); Anion Gap 19.7; Aspartate Amino Transferase 141 U/L (15-37); BUN Creatinine Ratio 5.7; Bilirubin Total 0.3 mg/dL (0.2-1.0); Calcium 9.1 mg/dL (8.5-10.1); Carbon Dioxide 20.3 mmol/L (21.0-32.0); Chloride 97 mmol/L (98-107); Estimated GFR (African America >60 (>=60); Estimated GFR (Non-African Ame >60 (>=60); Globulin 3.4 g/dL; Glucose 104 mg/dL (74-106); Sodium 134 mmol/L (136-145); Total Protein 6.9 g/dL (6.4-8.2)
[2024-01-09 19:40] LABS: Lactate/Lactic Acid 3.2 mmol/L (0.4-2.0)
[2024-01-09] MEDS: METRONIDAZOLE/SODIUM CHLORIDE 500 MG/100 ML PREMIX 100 MG IV (20:30)
[2024-01-09] MEDS: CIPROFLOXACIN IN 5 % DEXTROSE 400 MG/200 ML PIGGYBACK 200 MG IV (20:30)
[2024-01-09] MEDS: KETOROLAC TROMETHAMINE 30 MG/ML VIAL IVP (20:31)
--- OUTSIDE RECORDS SUMMARY | 2024-01-09 21:07 | XMS_ITS | CCD ---
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 Momo NILL [facility] 05-18-2023 15:44-0400 Heart rate 74 /min Momo NILL [facility] 05-18-2023 15:44-0400 Respiratory rate 16 /min Momo NILL [facility] 05-18-2023 15:44-0400 Systolic blood pressure 144 mm[Hg] Momo NILL [facility] Encounters Encounter Date Encounter Type Care Provider Facility Start: 06-14-2023 End: 06-15-2023 ambulatory Momo R NILL Facility: [facility] Start: 06-01-2023 End: 06-02-2023 ambulatory Momo R NILL Facility:CD:[id number] Start: 05-18-2023 End: 05-19-2023 ambulatory Momo [...] End: 08-19-2018 Patient encounter procedure CHEO CAVAZOS Facility:[facility] Start: 07-19-2018 End: 07-20-2018 Patient encounter procedure CHEO CAVAZOS Facility:[facility] Start: 05-03-2018 End: 05-04-2018 Patient encounter procedure DEFAULT PHYSICIAN Facility:[facility] Procedures Date Procedure Procedure Detail Performing Clinician Cholecystectomy Momo TOMMohan Colonoscopy Momo DEE Esophagogastroduodenoscopy Rossana estradajavi SANTOSMohan Immunizations Immunization Date Immunization Notes Care Provider Fa cili 10-29-2021 SARS-CoV-2 (COVID-19 ) mRNA BNT-162b2 vax Momo SANTOSL [facility] Comment on above: Result Comment: 2022: [facility] 05-11-2021 SARS-CoV-2 (COVID-19 ) mRNA BNT-162b2 vax Momo NILL [facility] Comment on above: Result Comment: 2022: [facility] 04-20-2021 SARS-CoV-2 (COVID-19 ) mRNA BNT-162b2 vax Momo NILL [facility] Comment on above: Result Comment: 2022: [facility] Payers Date Payer Category Payer Unknown [id number] 1995 Unknown [id number] 2.16.8 [id number] 1995 Unknown [id number] 2.16.8 [id number] 1994 Unknown [id number] 2.16.8 [id number] 1994 Unknown [id number] 2.16.84 [id number] 1994 Unknown [id number] 2.16.84 [id number] 1994 Unknown [id number] 2.16.84 [id number] 1994 Unknown [id number] 2.16.84 [id number] 1994 Unknown [id number] 2.16.8 [id number] 1994 Unknown [id number] 2.16.8 [id number] 1994 Unknown [id number] 2.16.8 [id number] 1960 Self-pay [id number] 1960 Self-pay Unknown Social History Date Type Detail Facility Start: 05-18-2023 Tobacco smoking status Heavy t obacco smoker (finding) [facility] Tobacco smoking status Former sm okeless tobacco user, quit more than 30 days ago [facility] Sex Assigned At Male [facility] Functional Status Date Assessment Result Facility 05-18-2023 Functional Status N/A [facility] Clinical Note 05-18-2023 Note Date & Type Note Facility 05-18-2023 Note Chief Complaint consultation for rectal bleeding HPI Staff 28 year old male presents on consultation from Dr. Umaña for rectal bleeding. Presented to [facility] ED 04/14 with complaint of rectal bleeding [...] qualifying data Procedure/Surgical (more content not included)... [facility] Comment on above: Result Comment: Elec tronically Signed By: LEILA HERRERA, Momo Burleson\Date and Time Signed: 05/18/23 16:35 EDT History and physical note 04-29-2023 Note Date & Type Note Facility 04-29-2023 Note [phone] [id number] #[id number] [facility] Evaluation + Plan note Note Date & Type Note Facility Evaluation + Plan note No data available for this section [facility] Discharge instructions Note Date & Type Note Facility Hospital Discharge instructions No data available for this section [facility] Progress note Note Date & Type Note Facility Progress note No data available for this section [facility] Summary Purpose Family History No Family History Records FoundNo Family History Records FoundNo Family History Records Found Advance Directives No Advanced Directives Records FoundNo Advanced Directives Records FoundNo Advanced Directives Records Found Additional Source Comments (unrecognized sect ion and content) No Status Records FoundNo Status Records FoundNo Status Records Found INFORMATION SOURCE (unrecogn ized section and content) DATE CREATED AUTHOR 11/07/2018 [facility] DATE CREATED AUTHOR AUTHOR'S ORGANIZ ATION 02/03/2023 [facility] DATE CREATED AUTHOR AUTHOR'S ORGANIZ ATION 06/22/2023 [facility] Patient Care team informatio n (unrecognized section and content) Personnel Name: Cisco Umaña MD Address: Address: [address] [place] [address] FOR RECORDS PERTAINING TO PATIENTS WHO ARE [...] BE BASED ON THE PRIMARY CLINICAL RECORDS. [facility]. provides no warranty or guarantee of the accuracy or completeness of information in this document.
[2024-01-09 21:38] LABS: Lactate/Lactic Acid 2.7 mmol/L (0.4-2.0)
[2024-01-09] MEDS: MULTIVITAMIN TABLET 1 TAB PO (21:43)
[2024-01-09] MEDS: 0.9 % SODIUM CHLORIDE 1,000 ML 125 ML IV (21:43)
[2024-01-09] MEDS: THIAMINE MONONITRATE (VIT B1) 100 MG TABLET PO (21:44)
[2024-01-10] VITALS (8 sets, daily range): BP systolic 106–126; BP diastolic 73–90; PULSE 70–97; TEMP 36.6–36.9; O2SAT 96–100
[2024-01-10] MEDS: LORAZEPAM 1 MG TABLET PO ×3 (00:08→18:37)
[2024-01-10] MEDS: NICOTINE 14 MG PATCH.TD24 TD (00:08)
[2024-01-10 00:31] LABS: Lactate/Lactic Acid 1.8 mmol/L (0.4-2.0)
[2024-01-10 04:22] LABS: Basophils Absolute Auto 0.1 10^3/uL (0.0-0.1); Eosinophils Absolute Auto 0.1 10^3/uL (0.0-0.7); Eosinophils Percent Auto 2.4 % (0.9-7.0); Hemoglobin 14.3 g/dL (14.0-18.0); Immature Granulocytes Abs Auto 0.01 10^3/uL (0.00-0.03); Immature Granulocytes Pct Auto 0.2 % (0.0-0.5); Lymphocytes Absolute Auto 0.7 10^3/uL (1.2-3.8); Lymphocytes Percent Auto 13.6 % (20.5-60.0); Mean Corpuscular HGB Conc 32.5 g/dL (29.9-35.2); Mean Corpuscular Hemoglobin 33.7 pg (25.9-34.0); Mean Corpuscular Volume 103.8 fL (80.0-94.0); Mean Platelet Volume 9.3 fL (9.5-13.5); Monocytes Absolute Auto 0.8 10^3/uL (0.3-0.8); Monocytes Percent Auto 16.6 % (1.7-12.0); Neutrophils Absolute Auto 3.3 10^3/uL (1.4-6.5); Neutrophils Percent Auto 66.2 % (43.0-75.0); Platelet Count 135 10^3/uL (150-450); Red Blood Count 4.24 10^6/uL (4.70-6.10); Red Cell Distribution Width 12.1 % (11.0-15.0); White Blood Count 4.9 10^3/uL (4.0-11.0)
[2024-01-10 04:28] LABS: Prothrombin Time 9.6 sec (9.0-11.6)
[2024-01-10 04:34] LABS: Alanine Aminotransferase 128 U/L (16-63); Albumin Level 2.8 g/dL (3.4-5.0); Alkaline Phosphatase 62 U/L (46-116); Anion Gap 16.9; Aspartate Amino Transferase 78 U/L (15-37); Bilirubin Total 0.2 mg/dL (0.2-1.0); Calcium 8.7 mg/dL (8.5-10.1); Carbon Dioxide 20.5 mmol/L (21.0-32.0); Chloride 104 mmol/L (98-107); Estimated GFR (African America >60 (>=60); Estimated GFR (Non-African Ame >60 (>=60); Globulin 2.9 g/dL; Glucose 88 mg/dL (74-106); INR <0.93; Potassium 3.4 mmol/L (3.5-5.1); Sodium 138 mmol/L (136-145); Total Protein 5.7 g/dL (6.4-8.2)
[2024-01-10 04:37] LABS: Lactate/Lactic Acid 1.1 mmol/L (0.4-2.0)
[2024-01-10 04:38] LABS: BUN Creatinine Ratio 6.3
[2024-01-10] MEDS: 0.9 % SODIUM CHLORIDE 1,000 ML 125 ML IV ×2 (05:42→16:50)
[2024-01-10] MEDS: METRONIDAZOLE/SODIUM CHLORIDE 500 MG/100 ML PREMIX 100 MG IV ×3 (05:42→17:02)
[2024-01-10] MEDS: KETOROLAC TROMETHAMINE 30 MG/ML VIAL IVP ×3 (06:25→21:29)
[2024-01-10 07:15] LABS: Amylase 40 U/L (25-115); Magnesium 1.7 mg/dL (1.8-2.4)
[2024-01-10] MEDS: CIPROFLOXACIN IN 5 % DEXTROSE 400 MG/200 ML PIGGYBACK 200 MG IV ×2 (08:19→21:30)
[2024-01-10] MEDS: THIAMINE MONONITRATE (VIT B1) 100 MG TABLET PO (08:19)
[2024-01-10] MEDS: MULTIVITAMIN TABLET 1 TAB PO (08:19)
--- NOTE | 2024-01-10 08:39 | P.HP_ITS ---
HPI H&P: HPI History of Present Illness Chief complaint: abdominal pain-COLITIS, PROCTITIS, M/S OVERFLOW Narrative: Patient presented to the emergency room the previous day. Had increasing abdominal pain. It was recommended to keep him at that point in time but he did sign himself out AMA, and then we presented himself to the emergency room secondary to increasing abdominal pain and diarrhea. I saw the patient up in the ICU, therefore MedSurg overflow, patient was in moderate painful distress secondary to the abdominal pain. He does describe diarrhea. After discussion he had colonoscopies in the past and has been told he has a history of Crohn's. Opioid HPI Opioid Management Most Recent Opioid Data: Last Pain Scale 7 01/10/24 06:26 Last Pain Assessment 01/10/24 08:00 Last ED Pain Assessment 01/08/24 18:20 Last MAR Pain Assessment 01/10/24 07:51 Last ORT Total Score 6 01/09/24 21:17 Last ORT Risk Category Moderate Risk 01/09/24 21:17 Ur Phencyclidine Scrn Negative (NEGATIVE) 10/28/23 18:00 Review of Systems ROS Status of ROS 10 or more systems reviewed and unremark able except as noted in history and below Respiratory Reports: shortness of breath, cough and wheezing PFSH PFSH Medical History (Updated 01/09/24 @ 20:26 by ) Chronic cough ?R05.3 - Chronic cough (ICD-10) Nausea & vomiting ?R11.2 - Nausea with vomiting, unspecified (ICD-10) Prostatitis ?N41.9 - Inflammatory disease of prostate, unspecified (ICD-10) Fatty liver ?K76.0 - Fatty (change of) liver, not elsewhere classified (ICD-10) Chronic alcoholism ?F10.20 - Alcohol dependence, uncomplicated (ICD-10) Anxiety ?F41.9 - Anxiety disorder, unspecified (ICD-10) ADHD ?F90.9 - Attention-deficit hyperactivity disorder, unspecified type (ICD-10) Abdominal pain ?R10.9 - Unspecified abdominal pain (ICD-10) Diverticulosis ?K57.90 - Diverticulosis of intestine, part unspecified, without perforation or abscess without bleeding (ICD-10) 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 - Intussusception (ICD-10) GI bleeding ?K92.2 - Gastrointestinal hemorrhage, unspecified (ICD-10) Surgical History (Updated 04/14/23 @ 08:24 by Fatimah Garrido) H/O esophagogastroduodenoscopy ?Z98.890 - Other specified postprocedural states (ICD-10) H/O colonoscopy ?Z98.890 - Other specified postprocedural states (ICD-10) Hx of cholecystectomy ?Z90.49 - Acquired absence of other specified parts of digestive tract (ICD- 10) Family History (Updated 05/19/23 @ 11:41 by Jewels Case RN) Other Multiple sclerosis Social History (Updated 04/14/23 @ 08:27 by Fatimah Garrido) Within the past year, how often did you have a drink containing alcohol: 2-4 times a month Within the past year, how many standard drinks containing alcohol did you have on a typical day: 3 or 4 Within the past year, how often did you have six or more drinks on one occasion: less than monthly Total score: 3 Score interpretation: A score of 4 or more indicates drinking is likely to affect patient's safety. Smoking status: Heavy tobacco smoker Do you use any of these nicotine containing products: vaping products and smokeless tobacco Non-prescribed substance use: cannabis (any form) Previous occupational history: current, [employer] Highest level of school completed/degree received: 11th grade Are you now , , , , never or living with a partner: living with partner Little interest or pleasure in doing things: more than half the days Feeling down, depressed, or hopeless: several days Meds Home Medications and Allergies Home Medications ?Medication ?Instructions ?Recorded ?Confirmed ?Type ciprofloxacin HCl 500 mg tablet 500 mg PO Q12H #20 tabs 01/08/24 Rx (Cipro) metronidazole 500 mg tablet 500 mg PO TID #30 tabs 01/08/24 Rx Allergies Allergy/AdvReac Type Severity Reaction Status Date / Time No Known Drug Allergies Allergy Verified 05/30/23 12:31 Exam Constitutional Vital Signs, click to edit/add: Last Vital Signs Temp 97.8 F 01/10/24 08:00 Pulse 82 01/10/24 08:00 Resp 16 01/10/24 08:00 BP 115/78 01/10/24 08:00 Pulse Ox 96 01/10/24 08:00 O2 Del Method Room Air 01/10/24 08:00 Documenting provider has reviewed patient's vital signs: yes Common normals: apparent distress (Moderate painful distress with cough throughout the evaluation) Chest Common normals: inspection of chest normal Respiratory Common normals: abnormal respiratory effort (Cough throughout the evaluation) Effort & inspection: tachypneic Auscultation: rhonchi and wheezes Cardio Common normals: regular rhythm; irregular rate Rate: tachycardic GI Common normals: Normal to inspection, nondistended, normoactive bowel sounds present; negative for soft to palpation (Moderate firmness) Palpation: tender (Diffusely tender but no rebound tenderness) Extremity Common normals: normal to inspection Neuro Common normals: CN's II-XII intact bilaterally Sensorium/orientation: awake, alert, oriented to person, oriented to place and oriented to time Results Labs Labs: Short CBC 01/09/24 01/10/24 Range/Units 19:00 04:09 WBC 7.7 4.9 (4.0-11.0) 10^3/uL Hgb 15.6 14.3 (14.0-18.0) g/dL Hct 45.6 44.0 (42.0-54.0) % Plt Count 155 135 L (150-450) 10^3/uL BMP 01/09/24 01/10/24 19:00 04:09 Sodium 134 L 138 Potassium 3.0 L 3.4 L Chloride 97 L 104 Carbon Dioxide 20.3 L 20.5 L BUN 4.0 L 4.0 L Creatinine 0.70 0.64 L Glucose 104 88 Calcium 9.1 8.7 Liver Function 01/09/24 01/10/24 Range/Units 19:00 04:09 Total Bilirubin 0.3 0.2 (0.2-1.0) mg/dL AST 141 H 78 H (15-37) U/L ALT 169 H 128 H (16-63) U/L Alkaline Phosphatase 78 62 (46-116) U/L Albumin 3.5 2.8 L (3.4-5.0) g/dL Assessment and Plan Assessment and Plan (1) Colitis: Plan Tachycardia, positive lactate, elevated liver function test, thrombocytopenia, increasing abdominal pain secondary to pancolitis, history of Crohn's per patient, continue with IV antibiotics, will adjust dose of Flagyl, add steroids for possible Crohn's flareup. Significant diarrhea, check stool panel. Elevated lipase consistent with acute pancreatitis. He does have a history that he has a history of alcohol abuse. Repeat lipase this morning is normal. Will advance diet to low-fat diet. Consider ultrasound of pancreas as a follow-up. Elevated liver function test possibly related to the infection as outlined above for his pancolitis, possibly related to his alcohol abuse as well. Liver function test improving. PT PTT are normal. With elevated liver test and elevated lipase, concern for ascending cholangitis but would not suspect that based on white blood cell count Hypokalemia-supplement, improved today Thrombocytopenia-possibly related to infection as outlined above versus his alcohol intake. Bone marrow suppression. Continue to follow. Hepatic steatosis-complicating factor for all of the above. Can follow that as an outpatient Alcohol abuse-CIWA scale and as needed medications Acute bronchitis with likely mild COPD exacerbation-aerosol treatments, IV antibiotics as above and steroids will improve Admission status: Patient was a significantly elevated lactate, significant abdominal tenderness, flareup of Crohn's colitis, medically necessary treatment will span 2 midnights. Continue with IV antibiotics. Inpatient status.
--- NOTE | 2024-01-10 08:56 | XR_ITS ---
The [address] [address] Patient Name: SHAHIDA ALVAREZ MRN: [id number] date: 1995 Sex: M Assigned Patient Location: ICU Current Patient Location: ICU Accession/Order Number: [id number] Exam Date: 01/10/2024 08:50 Report Date: 01/10/2024 09:18 At the request of: CISCO WELLS Procedure: XR chest 2V EXAMINATION: XR chest 2V HISTORY: acute bronchitis COMPARISON: 08/09/2023 TECHNIQUE: PA and lateral FINDINGS: LUNGS: No significant pulmonary parenchymal abnormalities. VASCULATURE: No increased pulmonary vasculature. PLEURA: No pneumothorax, effusion, or pleural thickening. CARDIAC: No cardiomegaly or cardiac silhouette abnormality. MEDIASTINUM: No visible mass or adenopathy. BONES: No fracture or visible bone lesion. OTHER: Negative. XR/XR chest 2V IMPRESSION: No acute cardiopulmonary process Electronically authenticated by: SHELLEY CREWS Date: 01/10/2024 09:18
[2024-01-10 09:02] LABS: Influenza Virus A Antigen Negative; Influenza Virus B Antigen Negative; Internal Control Within Normal Limits
[2024-01-10 09:03] LABS: SARS-CoV-2 Ag NEGATIVE (NEGATIVE)
[2024-01-10] MEDS: PANTOPRAZOLE SODIUM 40 MG VIAL IV (10:04)
[2024-01-10] MEDS: METHYLPREDNISOLONE SOD SUCC PF 125 MG/2 ML VIAL IVP ×3 (10:05→21:29)
[2024-01-10] MEDS: IPRATROPIUM/ALBUTEROL SULFATE 3 ML AMPUL.NEB IH ×3 (10:53→22:16)
[2024-01-10 11:01] LABS: Adenovirus F 40/41 NOT DETECTED (NOT DETECTE); Astrovirus NOT DETECTED (NOT DETECTE); Campylobacter NOT DETECTED (NOT DETECTE); Cryptosporidium NOT DETECTED (NOT DETECTE); Cyclospora cayetanensis NOT DETECTED (NOT DETECTE); Entamoeba histolytica NOT DETECTED (NOT DETECTE); Enteroaggregative E.coli NOT DETECTED (NOT DETECTE); Enteropathogenic E.coli NOT DETECTED (NOT DETECTE); Enterotoxigenic E. coli NOT DETECTED (NOT DETECTE); Giardia lamblia NOT DETECTED (NOT DETECTE); Norovirus GI/GII NOT DETECTED (NOT DETECTE); Plesiomonas shigelloides NOT DETECTED (NOT DETECTE); Rotavirus A NOT DETECTED (NOT DETECTE); Sapovirus NOT DETECTED (NOT DETECTE); Shiga-like toxin-producing E.C NOT DETECTED (NOT DETECTE); Shigella/Enteroinvasive E.coli NOT DETECTED (NOT DETECTE); Vibrio NOT DETECTED (NOT DETECTE); Vibrio cholerae NOT DETECTED (NOT DETECTE); Yersinia enterocolitica NOT DETECTED (NOT DETECTE)
[2024-01-10] MEDS: HYOSCYAMINE SULFATE 0.125 MG TAB.SUBL 0.25 MG SL ×3 (11:37→21:29)
[2024-01-10 12:01] LABS: Salmonella DETECTED (NOT DETECTE)
--- NOTE | 2024-01-10 15:03 | SWNOTE1 ---
NEVAEH met with pt to discuss his drug/alcohol intake. Pt lives at home with his significant other and her family. Pt voiced he usually drinks 5-6 tall boys daily. He hasn't been feeling well lately and in past few days only drank 2-3. He voiced he has tried to quit cold turkey, but gets too sick. His plan is to wean himself down. He voiced his significant other is very supportive and has been wanting him to stop. NEVAEH did advise pt that it is important to try to stop as soon as possible for his own health. Pt voiced he has been to counseling in past, not for a long time. He has never went to any AA meetings. SW did offer to try and get him to inpt rehab, but pt stated he has animals at home to care for and he is not interested. Pt is interested in any oupt services that NEVAEH can provide. At this time pt has not further needs. NEVAEH printed off outpt counseling information, various pamphlets for outpt counseling, and AA meetings. NEVAEH provided these to pt.
[2024-01-10] MEDS: LORAZEPAM 2 MG/ML VIAL 1 MG IV (22:44)
[2024-01-11] VITALS (9 sets, daily range): BP systolic 122–145; BP diastolic 70–77; PULSE 71–114; TEMP 36.5–36.8; O2SAT 71–99
[2024-01-11] MEDS: NICOTINE 21 MG PATCH.TD24 TD (00:52)
[2024-01-11] MEDS: 0.9 % SODIUM CHLORIDE 1,000 ML 125 ML IV (00:53)
[2024-01-11] MEDS: METRONIDAZOLE/SODIUM CHLORIDE 500 MG/100 ML PREMIX 100 MG IV ×4 (00:53→22:00)
[2024-01-11] MEDS: LORAZEPAM 1 MG TABLET PO ×3 (02:23→18:08)
[2024-01-11] MEDS: METHYLPREDNISOLONE SOD SUCC PF 125 MG/2 ML VIAL IVP (02:23)
[2024-01-11] MEDS: IPRATROPIUM/ALBUTEROL SULFATE 3 ML AMPUL.NEB IH ×4 (04:49→23:17)
[2024-01-11] MEDS: HYOSCYAMINE SULFATE 0.125 MG TAB.SUBL 0.25 MG SL ×4 (05:13→21:02)
[2024-01-11 05:45] LABS: Basophils Percent Auto 0.1 % (0.2-2.0); Hematocrit 40.9 % (42.0-54.0); Immature Granulocytes Abs Auto 0.05 10^3/uL (0.00-0.03); Immature Granulocytes Pct Auto 0.6 % (0.0-0.5); Lymphocytes Absolute Auto 0.5 10^3/uL (1.2-3.8); Lymphocytes Percent Auto 6.4 % (20.5-60.0); Mean Corpuscular HGB Conc 34.2 g/dL (29.9-35.2); Mean Corpuscular Hemoglobin 33.9 pg (25.9-34.0); Mean Platelet Volume 9.9 fL (9.5-13.5); Monocytes Absolute Auto 0.4 10^3/uL (0.3-0.8); Monocytes Percent Auto 4.3 % (1.7-12.0); Neutrophils Absolute Auto 7.3 10^3/uL (1.4-6.5); Neutrophils Percent Auto 88.6 % (43.0-75.0); Platelet Count 175 10^3/uL (150-450); Red Blood Count 4.13 10^6/uL (4.70-6.10); Red Cell Distribution Width 11.9 % (11.0-15.0); White Blood Count 8.2 10^3/uL (4.0-11.0)
[2024-01-11 05:48] LABS: Prothrombin Time 9.8 sec (9.0-11.6)
[2024-01-11 06:16] LABS: INR <0.93
[2024-01-11 06:55] LABS: Chloride 105 mmol/L (98-107)
[2024-01-11 06:56] LABS: Anion Gap 15.1; BUN Creatinine Ratio 6.5; Carbon Dioxide 21.9 mmol/L (21.0-32.0); Estimated GFR (African America >60 (>=60); Estimated GFR (Non-African Ame >60 (>=60); Glucose 144 mg/dL (74-106); Sodium 139 mmol/L (136-145)
[2024-01-11 06:57] LABS: Alanine Aminotransferase 99 U/L (16-63); Albumin Globulin Ratio 1.1; Albumin Level 3.1 g/dL (3.4-5.0); Alkaline Phosphatase 60 U/L (46-116); Aspartate Amino Transferase 29 U/L (15-37); Bilirubin Total 0.3 mg/dL (0.2-1.0); Globulin 2.9 g/dL
--- NOTE | 2024-01-11 07:39 | P.PN_ITS ---
Progress Note: Subjective Subjective Interval history: Pain is improved, see nurses rating scale, the pain is persisting, still having frequent stools, watery. Exam Constitutional Vital Signs, click to edit/add: Last Vital Signs Temp 97.9 F 01/11/24 04:19 Pulse 84 01/11/24 04:49 Resp 18 01/11/24 04:49 BP 122/71 01/11/24 04:19 Pulse Ox 99 01/11/24 04:49 O2 Del Method Room Air 01/11/24 04:49 Documenting provider has reviewed patient's vital signs: yes Common normals: apparent distress (Mild painful distress, improved from previous day) Chest Common normals: inspection of chest normal Respiratory Common normals: normal respiratory effort (Less cough throughout the exam) Auscultation: rhonchi (Improved) and wheezes (Improved but just had breathing treatment) GI Common normals: Normal to inspection, nondistended, normoactive bowel sounds present; negative for soft to palpation (Still somewhat firm but softer than previous day ) and tender Palpation: tender (Diffusely tender, no rebound tenderness today) Neuro Common normals: oriented x3, CN's II-XII intact bilaterally and moves all extremities Psych Appearance: not grossly normal (Little agitated likely from alcohol withdrawal) Progress Note: Objective Labs Labs: Short CBC 01/11/24 Range/Units 05:16 WBC 8.2 (4.0-11.0) 10^3/uL Hgb 14.0 (14.0-18.0) g/dL Hct 40.9 L (42.0-54.0) % Plt Count 175 (150-450) 10^3/uL BMP 01/11/24 05:16 Sodium 139 Potassium 3.0 L Chloride 105 Carbon Dioxide 21.9 BUN 4.0 L Creatinine 0.62 L Glucose 144 H Calcium 9.0 Liver Function 01/11/24 Range/Units 05:16 Total Bilirubin 0.3 (0.2-1.0) mg/dL AST 29 (15-37) U/L ALT 99 H (16-63) U/L Alkaline Phosphatase 60 (46-116) U/L Albumin 3.1 L (3.4-5.0) g/dL Progress Note: A&P Assessment and Plan (1) Colitis: (2) Invasive non-typhoidal salmonellosis: Plan Admission findings: Patient treated as an outpatient but returned the following day with tachycardia, positive lactate, elevated liver function test, thrombocytopenia, increasing abdominal pain secondary to pancolitis, history of Crohn's per patient,-stool test positive for Salmonella, with CT findings (simple Salmonella would not cause CT findings of colitis), failure of outpatient treatment with oral Cipro and Flagyl which should have covered Salmonella, significant abdominal tenderness, likely invasive Salmonella and needs to continue with IV antibiotics for at least 1 more day, patient still has severe diarrhea Elevated lipase consistent with acute pancreatitis. Resolved Hyperglycemia-likely secondary to steroids Elevated liver function test possibly related to the infection as outlined above for his pancolitis, possibly related to his alcohol abuse as well. Liver function test improving. PT PTT are normal.-Improving Hypokalemia-supplement, down today, continue supplementation, IV dose today Thrombocytopenia-possibly related to infection as outlined above versus his alcohol intake. Resolved Hepatic steatosis-complicating factor for all of the above. Can follow that as an outpatient Alcohol abuse-CIWA scale and as needed medications-worse today will add Librium [id number]. Acute bronchitis with likely mild COPD exacerbation-aerosol treatments, IV antibiotics as above and steroids-patient states breathing treatments helping Admission status: Patient was a significantly elevated lactate, failed outpatient treatment with oral antibiotics that should have covered this and Mateo melendez, CT findings consistent with invasive Salmonella, significant abdominal tenderness, medically necessary treatment will span 2 midnights. Continue with IV antibiotics. Inpatient status. ?
[2024-01-11] MEDS: CIPROFLOXACIN IN 5 % DEXTROSE 400 MG/200 ML PIGGYBACK 200 MG IV ×2 (08:58→20:55)
[2024-01-11] MEDS: CLORDIAZEPOXIDE HCl 25 MG CAPSULE PO ×3 (08:58→22:57)
[2024-01-11] MEDS: MAGNESIUM OXIDE 400 MG TABLET PO ×2 (08:59→20:55)
[2024-01-11] MEDS: MULTIVITAMIN TABLET 1 TAB PO (08:59)
[2024-01-11] MEDS: POTASSIUM CHLORIDE 10 MEQ ER TABLET 20 MEQ PO ×2 (08:59→20:55)
[2024-01-11] MEDS: THIAMINE MONONITRATE (VIT B1) 100 MG TABLET PO (08:59)
[2024-01-11] MEDS: OMEPRAZOLE 40 MG CAPSULE.DR PO (08:59)
[2024-01-11] MEDS: METHYLPREDNISOLONE SOD SUCC PF 125 MG/2 ML VIAL 60 MG IVP ×3 (09:01→22:05)
--- OUTSIDE RECORDS SUMMARY | 2024-01-11 09:13 | XMS_ITS | CCD ---
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 Facility:CD:[id number] Start: 05-18-2023 End: 05-19-2023 ambulatory Momo [...] End: 08-19-2018 Patient encounter procedure CHEO CAVAZOS Facility:[facility] Start: 07-19-2018 End: 07-20-2018 Patient encounter procedure CHEO CAVAZOS Facility:[facility] Start: 05-03-2018 End: 05-04-2018 Patient encounter procedure DEFAULT PHYSICIAN Facility:[facility] Procedures Date Procedure Procedure Detail Performing Clinician Cholecystectomy Momo TOMMohan Colonoscopy Momo DEE Esophagogastroduodenoscopy Rossana estradajavi SANTOSMohan Immunizations Immunization Date Immunization Notes Care Provider Fa cili 10-29-2021 SARS-CoV-2 (COVID-19 ) mRNA BNT-162b2 vax Momo SANTOSL [facility] Comment on above: Result Comment: 2022: [facility] 05-11-2021 SARS-CoV-2 (COVID-19 ) mRNA BNT-162b2 vax Momo NILL [facility] Comment on above: Result Comment: 2022: [facility] 04-20-2021 SARS-CoV-2 (COVID-19 ) mRNA BNT-162b2 vax Momo NILL [facility] Comment on above: Result Comment: 2022: TPVALL Payers Date Payer Category Payer Unknown [id number] 1995 Unknown [id number] 2.16.8 [id number] 1995 Unknown [id number] 2.16.8 [id number] 1994 Unknown [id number] 2.16.8 [id number] 1994 Unknown [id number] 2.16.84 [id number] 1994 Unknown [id number] 2.16.84 [id number] 1994 Unknown [id number] 2.16.84 [id number] 1994 Unknown [id number] 2.16.84 [id number] 1994 Unknown [id number] 2.16.8 [id number] 1994 Unknown [id number] 2.16.8 [id number] 1994 Unknown [id number] 2.16.8 [id number] 1960 Self-pay [id number] 1960 Self-pay Unknown Social History Date Type Detail Facility Start: 05-18-2023 Tobacco smoking status Heavy t obacco smoker (finding) [facility] [place] Tobacco smoking status Former sm okeless tobacco user, quit more than 30 days ago [facility] [place] Sex Assigned At Male [facility] Functional Status Date Assessment Result Facility 05-18-2023 Functional Status N/A [facility] [place] Clinical Note 05-18-2023 Note Date & Type Note Facility 05-18-2023 Note Chief Complaint consultation for rectal bleeding HPI Staff 28 year old male presents on consultation from Dr. Umaña for rectal bleeding. Presented to [place] ED 04/14 with complaint of rectal bleeding [...] qualifying data Procedure/Surgical (more content not included)... [facility] Comment on above: Result Comment: Elec tronically Signed By: LEILA HERRERA, Momo Burleson\Date and Time Signed: 05/18/23 16:35 EDT History and physical note 04-29-2023 Note Date & Type Note Facility 04-29-2023 Note [id number] #[id number] [facility] Evaluation + Plan note Note Date & Type Note Facility Evaluation + Plan note No data available for this section [facility] [place] [facility] Discharge instructions Note Date & Type Note Facility Hospital Discharge instructions No data available for this section [facility] [place] Progress note Note Date & Type Note Facility Progress note No data available for this section [facility] [place] Summary Purpose Family History No Family History [...] CREATED AUTHOR AUTHOR'S ORGANIZ ATION 02/03/2023 [facility] DATE CREATED AUTHOR AUTHOR'S ORGANIZ ATION 06/22/[address] [facility] Patient Care team informatio n (unrecognized section and content) Personnel Name: Cisco Umaña MD Address: Address: [address] [place] [address] FOR RECORDS PERTAINING TO PATIENTS WHO ARE [...] BE BASED ON THE PRIMARY CLINICAL RECORDS. [facility] [employer] [facility]. provides no warranty or guarantee of the accuracy or completeness of information in this document.
[2024-01-11] MEDS: KETOROLAC TROMETHAMINE 30 MG/ML VIAL IVP ×2 (09:38→18:08)
[2024-01-11] MEDS: POTASSIUM CHLORIDE 40 MEQ in 0.9 % SODIUM CHLORIDE 250 ML 67.5 MEQ IV (10:09)
[2024-01-11] MEDS: 0.9 % SODIUM CHLORIDE 1,000 ML 75 ML IV (11:46)
[2024-01-12] MEDS: KETOROLAC TROMETHAMINE 30 MG/ML VIAL IVP ×2 (00:57→08:19)
[2024-01-12] MEDS: LORAZEPAM 1 MG TABLET PO (00:58)
[2024-01-12] MEDS: METHYLPREDNISOLONE SOD SUCC PF 125 MG/2 ML VIAL 60 MG IVP ×2 (02:25→08:07)
[2024-01-12] MEDS: 0.9 % SODIUM CHLORIDE 1,000 ML 75 ML IV (02:26)
[2024-01-12] MEDS: METRONIDAZOLE/SODIUM CHLORIDE 500 MG/100 ML PREMIX 100 MG IV (02:26)
[2024-01-12 04:51] LABS: Basophils Percent Auto 0.2 % (0.2-2.0); Hematocrit 42.5 % (42.0-54.0); Immature Granulocytes Abs Auto 0.07 10^3/uL (0.00-0.03); Immature Granulocytes Pct Auto 0.6 % (0.0-0.5); Lymphocytes Absolute Auto 0.5 10^3/uL (1.2-3.8); Lymphocytes Percent Auto 4.3 % (20.5-60.0); Mean Corpuscular HGB Conc 32.9 g/dL (29.9-35.2); Mean Corpuscular Hemoglobin 33.1 pg (25.9-34.0); Mean Corpuscular Volume 100.5 fL (80.0-94.0); Mean Platelet Volume 9.4 fL (9.5-13.5); Monocytes Absolute Auto 0.6 10^3/uL (0.3-0.8); Monocytes Percent Auto 5.1 % (1.7-12.0); Neutrophils Absolute Auto 10.6 10^3/uL (1.4-6.5); Neutrophils Percent Auto 89.8 % (43.0-75.0); Platelet Count 198 10^3/uL (150-450); Red Blood Count 4.23 10^6/uL (4.70-6.10); White Blood Count 11.8 10^3/uL (4.0-11.0)
[2024-01-12 04:55] VITALS: PULSE 76; O2SAT 96
[2024-01-12] MEDS: IPRATROPIUM/ALBUTEROL SULFATE 3 ML AMPUL.NEB IH (04:55)
[2024-01-12 05:05] VITALS: PULSE 86; O2SAT 94
[2024-01-12 05:21] LABS: Alanine Aminotransferase 79 U/L (16-63); Albumin Globulin Ratio 1.1; Albumin Level 3.2 g/dL (3.4-5.0); Alkaline Phosphatase 58 U/L (46-116); Anion Gap 14.9; Aspartate Amino Transferase 20 U/L (15-37); BUN Creatinine Ratio 7.1; Bilirubin Total 0.2 mg/dL (0.2-1.0); Calcium 9.3 mg/dL (8.5-10.1); Chloride 105 mmol/L (98-107); Estimated GFR (African America >60 (>=60); Estimated GFR (Non-African Ame >60 (>=60); Glucose 136 mg/dL (74-106); Potassium 3.9 mmol/L (3.5-5.1); Sodium 141 mmol/L (136-145); Total Protein 6.2 g/dL (6.4-8.2)
[2024-01-12] MEDS: OMEPRAZOLE 40 MG CAPSULE.DR PO (05:49)
[2024-01-12] MEDS: HYOSCYAMINE SULFATE 0.125 MG TAB.SUBL 0.25 MG SL (05:49)
--- NOTE | 2024-01-12 07:40 | P.DS_ITS ---
DS: Providers Provider Date of admission: 01/09/24 20:55 Primary care physician: Serge Umaña MD Consults: 01/10/24 06:50 Consult to Pharmacy Routine Consulting Provider: Reason for consultation: Please [place] me when Med Rec is Updated Has provider been notified: No DS: Diagnosis Discharge Diagnosis (1) Colitis: (2) Invasive non-typhoidal salmonellosis: Plan Admission findings: Patient treated as an outpatient but returned the following day with tachycardia, positive lactate, elevated liver function test, thrombocytopenia, increasing abdominal pain secondary to pancolitis, history of Crohn's per patient,-stool test positive for Salmonella, with CT findings (simple Salmonella would not cause CT findings of colitis), failure of outpatient treatment with oral Cipro and Flagyl which should have covered Salmonella, significant abdominal tenderness, likely invasive Salmonella and needs to continue with IV antibiotics for at least 1 more day, patient still has severe diarrhea but improving at the time of discharge Elevated lipase consistent with acute pancreatitis. Resolved Hyperglycemia-secondary to steroids Elevated liver function test possibly related to the infection as outlined above for his pancolitis, possibly related to his alcohol abuse as well. Liver function test improving. PT PTT are normal.-Improving at the time of discharge Hypokalemia-supplement - resolved at the time of discharge Thrombocytopenia-possibly related to infection as outlined above versus his alcohol intake. Resolved Hepatic steatosis-complicating factor for all of the above. Can follow that as an outpatient Alcohol abuse-CIWA scale and as needed medications-stable at the time of discharge Acute bronchitis with likely mild COPD exacerbation-aerosol treatments, IV antibiotics as above and steroids-improved at the time of discharge Admission status: Patient was a significantly elevated lactate, failed outpatient treatment with oral antibiotics that should have covered this and Salmonella, CT findings consistent with invasive Salmonella, significant abdominal tenderness, medically necessary treatment will span 2 midnights. Continue with IV antibiotics. Inpatient status. ? ? DS: Summary Hospital Course Hospital Course: Patient was seen and evaluated in the emergency room due to increasing abdominal pain. Found to have pancolitis. Patient was discharged AGAINST MEDICAL ADVICE and placed on Cipro and Flagyl. He took that for day. Pain increasing. He Salome presented. Admitted at that time. Stool study I obtained while inpatient showed Salmonella. He was initially placed on IV Cipro and Flagyl for the colitis, maintained on the IV Cipro for the Salmonella secondary to his moderately firm abdomen is severe tenderness on his initial day of admission. And the persistence of his severe watery diarrhea. Absorption of oral Cipro unlikely to be beneficial. For invasive Salmonella. [place] to be invasive Salmonella secondary to CT findings which would not be typical for somebody with noninvasive Salmonella. Day 2 he was still having significant diarrhea, watery, abdomen was less firm but still diffusely tender. With the persistence of his diarrhea in the tenderness to his abdomen he was kept 1 additional day. Today he is overall much improved. Still has some mild diffuse tenderness. But much improved from admission. This firmness of his abdomen is much improved as well. Diarrhea persisting but improving. With this plan patient will be discharged to home in improving condition. Medication status. Follow-up in the office within the next week. Also treated for acute bronchitis. Steroids and antibiotics for the above improved that as well. Cough persisting but improving. Also treated for alcohol withdrawal syndrome-stable at the time of discharge. Encouraged no further alcohol intake he should be he should be passed the worst part of it. Time spent discussing smoking cessation with patient: more than 10 minutes Time Spent with Patient Time attestation: Total time spent providing and/or coordinating discharge services: Exam Constitutional Vital Signs, click to edit/add: Last Vital Signs Temp 98.3 F 01/11/24 20:00 Pulse 86 01/12/24 05:05 Resp 20 01/12/24 05:05 BP 135/76 01/11/24 20:00 Pulse Ox 94 L 01/12/24 05:05 O2 Del Method Room Air 01/12/24 05:05 Documenting provider has reviewed patient's vital signs: yes Common normals: apparent distress (Mild painful distress, improved from previous day) Chest Common normals: inspection of chest normal Respiratory Common normals: normal respiratory effort (Less cough throughout the exam) Auscultation: rhonchi (Continue); no wheezes (Resolved) GI Common normals: Normal to inspection, nondistended, normoactive bowel sounds present; negative for soft to palpation (Still somewhat firm but softer than previous day) and tender Palpation: firm (Mild firmness improved from admission) and tender (Diffusely tender, no rebound tenderness today) Neuro Common normals: oriented x3, CN's II-XII intact bilaterally and moves all extremities Psych Appearance: not grossly normal (Little agitated likely from alcohol withdrawal) DS: Data Data Completed and Pending Labs on day of discharge: Labs from last 24 hours 01/12/24 04:39 WBC 11.8 H RBC 4.23 L Hgb 14.0 Hct 42.5 MCV 100.5 H MCH 33.1 MCHC 32.9 RDW 12.0 Plt Count 198 MPV 9.4 L Neut % (Auto) 89.8 H Lymph % (Auto) 4.3 L [place] % (Auto) 5.1 Eos % (Auto) 0.0 L Baso % (Auto) 0.2 Neut # (Auto) 10.6 H Lymph # (Auto) 0.5 L [place] # (Auto) 0.6 Eos # (Auto) 0.0 Baso # (Auto) 0.0 Abs Immat Gran (auto) 0.07 H Imm/Tot Granulo (auto) 0.6 H Sodium 141 Potassium 3.9 Chloride 105 Carbon Dioxide 25.0 Anion Gap 14.9 BUN 5.0 L Creatinine 0.70 Est GFR ( Amer) >60 Est GFR (Non-Af Amer) >60 BUN/Creatinine Ratio 7.1 Glucose 136 H Calcium 9.3 Total Bilirubin 0.2 AST 20 ALT 79 H Alkaline Phosphatase 58 Total Protein 6.2 L Albumin 3.2 L Globulin 3.0 Albumin/Globulin Ratio 1.1 Lipase 58.0 Discharge Plan Discharge Disposition: Home, Self-Care Condition: Good Discharge Medications: Continued metronidazole 500 mg tablet 500 mg PO TID Qty: 30 0RF ciprofloxacin HCl [Cipro] 500 mg tablet 500 mg PO Q12H Qty: 20 0RF Print Language: Japanese Forms: Portal Instructions
[2024-01-12] MEDS: MAGNESIUM OXIDE 400 MG TABLET PO (08:07)
[2024-01-12] MEDS: CLORDIAZEPOXIDE HCl 25 MG CAPSULE PO (08:07)
[2024-01-12] MEDS: THIAMINE MONONITRATE (VIT B1) 100 MG TABLET PO (08:07)
[2024-01-12] MEDS: POTASSIUM CHLORIDE 10 MEQ ER TABLET 20 MEQ PO (08:07)
[2024-01-12] MEDS: MULTIVITAMIN TABLET 1 TAB PO (08:07)
[2024-01-12] MEDS: CIPROFLOXACIN IN 5 % DEXTROSE 400 MG/200 ML PIGGYBACK 200 MG IV (08:15)
--- NOTE | 2024-01-13 14:33 | CM.DCFOLLOWU ---
1st attempt, no answer 01/13/24
--- NOTE | 2024-01-16 11:25 | CM.DCFOLLOWU ---
2nd attempt, no answer 01/16/24
--- NOTE | 2024-01-17 14:48 | CM.DCFOLLOWU ---
3rd attempt, no answer 01/17/24 3 attempts made, no answer each time.
== END 2024-01-12 09:30 | disposition home or self-care (01) | DRG 391 ==
LOC: ER 20:26 → ICU 01-11 08:50 → MS 01-11 08:50
PROVIDERS: Nurse Practitioner Acute Care; Student in an Organized Health Care Education/Training Program; Admitting Provider Family Medicine; Emergency Provider Emergency Medicine; PCP Family Medicine; Visit Provider Family Medicine
DX: K52.9 Noninfective gastroenteritis and colitis, unspecified (principal); K85.90 Acute pancreatitis without necrosis or infection, unspecified; K50.90 Crohn's disease, unspecified, without complications; J44.0 Chronic obstructive pulmonary disease with (acute) lower respiratory infection; J44.1 Chronic obstructive pulmonary disease with (acute) exacerbation; F10.139 Alcohol abuse with withdrawal, unspecified; A02.0 Salmonella enteritis; R00.0 Tachycardia, unspecified; D69.6 Thrombocytopenia, unspecified; E87.6 Hypokalemia; K76.0 Fatty (change of) liver, not elsewhere classified; J20.9 Acute bronchitis, unspecified; F17.290 Nicotine dependence, other tobacco product, uncomplicated; R79.89 Other specified abnormal findings of blood chemistry; F12.90 Cannabis use, unspecified, uncomplicated; Z98.890 Other specified postprocedural states; Z90.49 Acquired absence of other specified parts of digestive tract; F17.220 Nicotine dependence, chewing tobacco, uncomplicated; Z20.822 Contact with and (suspected) exposure to COVID-19
CPT/HCPCS: 36415; 71046; 80053; 82150; 83605; 83690; 83735; 85025; 85610; 87070; 87493; 87507; 87804; 87811; 94640; 96361; 96365; 96366; 96367; 96368; 96375; 96376; 99284; J2919; J3480

== ENCOUNTER 2024-04-02 17:23 | Emergency (ER) | payer SELFPAY ==
[2024-04-02 17:27] VITALS: BP 138/94; PULSE 104; TEMP 36.8; O2SAT 94; BMI 21.6
--- NOTE | 2024-04-02 17:33 | CT_ITS ---
[address] [address] Patient Name: SHAHIDA ALVAREZ MRN: [id number] date: 1995 Sex: M Assigned Patient Location: ER Current Patient Location: .[facility] Accession/Order Number: [id number] Exam Date: 04/02/2024 18:19 Report Date: 04/02/2024 20:02 At the request of: YESI DENNEY Procedure: CT abdomen pelvis w con Indication: Abdominal pain Comparison: 01/08/2024 exam Procedure: Axial images were made from the diaphragms through the symphysis pubis. No oral contrast was given prior to scanning. 94 mL Omnipaque 300 Intravenous contrast was given. Dose reduction techniques were achieved by using automated exposure control and/or adjustment of mA and/or kV according to patient size and/or use of iterative reconstruction technique. Findings: Liver/Biliary System: Stable significant diffuse fatty infiltration of the liver. No intra or extrahepatic biliary dilatation. Status postcholecystectomy. Pancreas/Spleen: No evidence of acute pancreatitis. Pancreatic duct is not dilated. No pancreatic lesions are seen. No splenomegaly or splenic lesions. Kidneys/Adrenals: Normal symmetrical nephrograms. No renal masses. No renal or ureteral stones are seen. No hydronephrosis or hydroureter bilaterally. Aorta/Vessels: No evidence of aortic aneurysm. Patent IVC, renal veins, hepatic veins and portal venous system. Bowel/Fluid/Nodes: No bowel dilatation or bowel wall thickening. No evidence of bowel obstruction. Colonic diverticulosis with no evidence of diverticulitis. Normal appendix. No ascites or fluid collections. No adenopathy. Lung bases: Clear. Other findings: No aggressive osseous lesions are seen. Pelvis: No pelvic masses or adenopathy. No free fluid seen in the pelvis. Bladder, prostate and seminal vesicles are unremarkable. Other Findings: No aggressive osseous lesions are seen. CT/CT abdomen pelvis w con Impression: 1. No evidence of acute abdominal or pelvic process. No CT findings to explain patient's abdominal pain. 2. Colonic diverticulosis with no evidence of diverticulitis. Stable significant diffuse fatty infiltration of the liver. Electronically authenticated by: PRAVEEN WILLIAMSON Date: 04/02/2024 20:02
--- NOTE | 2024-04-02 17:34 | ED_ITS ---
HPI HPI - General Adult General Chief complaint: Abdominal Pain Stated complaint: ABDOMINAL PAIN, DARK STOOL Time Seen by Provider: 04/02/24 17:28 Source: patient Mode of arrival: walk-in Limitations: no limitations History of Present Illness HPI narrative: Patient is a 29-year-old male who presents to the emergency department Related Data Previous Rx's ?Medication ?Instructions ?Recorded albuterol sulfate 2.5 mg/3 mL 2.5 mg (3 mL) inhalation Q2H PRN 01/12/24 (0.083 %) solution for nebulization Dyspnea #75 mL hyoscyamine sulfate 0.125 mg 0.125 mg PO Q6H PRN abdominal pain 04/02/24 tablet (Levsin) #12 tabs pantoprazole 40 mg tablet,delayed 40 mg PO DAILY #7 tabs 04/02/24 release (Protonix) promethazine 25 mg tablet 25 mg PO Q6H PRN nausea and 04/02/24 vomiting #12 tabs Allergies Allergy/AdvReac Type Severity Reaction Status Date / Time No Known Drug Allergies Allergy Verified 04/02/24 17:32 Opioid HPI Opioid Management Most Recent Opioid Data: Last Pain Scale 4 01/12/24 08:23 Last ORT Total Score 6 01/09/24 21:17 Last ORT Risk Category Moderate Risk 01/09/24 21:17 Ur Phencyclidine Scrn Negative (NEGATIVE) 04/02/24 17:33 PFSH PFSH Medical History (Updated 04/02/24 @ 20:11 by BRENDA Olson) 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 - Salmonella enteritis (ICD-10) Colitis ?K52.9 - Noninfective gastroenteritis and colitis, unspecified (ICD-10) Acute proctitis ?K62.89 - Other specified diseases of anus and rectum (ICD-10) Chronic cough ?R05.3 - Chronic cough (ICD-10) Nausea & vomiting ?R11.2 - Nausea with vomiting, unspecified (ICD-10) Prostatitis ?N41.9 - Inflammatory disease of prostate, unspecified (ICD-10) Fatty liver ?K76.0 - Fatty (change of) liver, not elsewhere classified (ICD-10) Chronic alcoholism ?F10.20 - Alcohol dependence, uncomplicated (ICD-10) Anxiety ?F41.9 - Anxiety disorder, unspecified (ICD-10) ADHD ?F90.9 - Attention-deficit hyperactivity disorder, unspecified type (ICD-10) Abdominal pain ?R10.9 - Unspecified abdominal pain (ICD-10) Diverticulosis ?K57.90 - Diverticulosis of intestine, part unspecified, without perforation or abscess without bleeding (ICD-10) 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 - Intussusception (ICD-10) GI bleeding ?K92.2 - Gastrointestinal hemorrhage, unspecified (ICD-10) Surgical History (Updated 04/14/23 @ 08:24 by Fatimah Garrido) H/O esophagogastroduodenoscopy ?Z98.890 - Other specified postprocedural states (ICD-10) H/O colonoscopy ?Z98.890 - Other specified postprocedural states (ICD-10) Hx of cholecystectomy ?Z90.49 - Acquired absence of other specified parts of digestive tract (ICD-1 0) Family History (Updated 05/19/23 @ 11:41 by Jewels Case RN) Other Multiple sclerosis Social History (Updated 04/14/23 @ 08:27 by Fatimah Garrido) Within the past year, how often did you have a drink containing alcohol: 2-4 times a month Within the past year, how many standard drinks containing alcohol did you have on a typical day: 3 or 4 Within the past year, how often did you have six or more drinks on one occasion: less than monthly Total score: 3 Score interpretation: A score of 4 or more indicates drinking is likely to affect patient's safety. Smoking status: Heavy tobacco smoker Do you use any of these nicotine containing products: vaping products and smokeless tobacco Non-prescribed substance use: cannabis (any form) Previous occupational history: current, [employer] Highest level of school completed/degree received: 11th grade Are you now , , , , never or living with a partner: living with partner Little interest or pleasure in doing things: more than half the days Feeling down, depressed, or hopeless: several days Exam Constitutional Vital Signs, click to edit/add: Last Vital Signs Temp 98.3 F 04/02/24 17:27 Pulse 89 04/02/24 20:25 Resp 16 04/02/24 20:25 BP 104/69 04/02/24 20:25 Pulse Ox 97 04/02/24 20:25 O2 Del Method Room Air 04/02/24 20:25 Course Vital Signs Vital signs: Vital Signs Temperature 98.3 F 04/02/24 17:27 Pulse Rate 104 H 04/02/24 17:27 Respiratory Rate 18 04/02/24 17:27 Blood Pressure 138/94 H 04/02/24 17:27 Pulse Oximetry 94 L 04/02/24 17:27 Oxygen Delivery Method Room Air 04/02/24 17:27 Temperature 98.3 F 04/02/24 17:27 Pulse Rate 89 04/02/24 20:25 Respiratory Rate 16 04/02/24 20:25 Blood Pressure 104/69 04/02/24 20:25 Pulse Oximetry 97 04/02/24 20:25 Oxygen Delivery Method Room Air 04/02/24 20:25 Medical Decision Making MDM Narrative Medical decision making narrative: Patient was medicated with IV fluids, medication for symptoms. He had 2 episodes of dry heaving in the ER was given additional antiemetics. Lab studies show stable blood counts, no leukocytosis, normal inflammatory markers, stable elevated LFTs. Ethanol significantly elevated at 269. Urine specimen is negative and drug screen is positive for marijuana. CT of the abdomen and pelvis with no evidence of acute process. Patient was reevaluated, he is resting comfortably. I discussed observation admission for nausea and vomiting versus outpatient treatment. The patient would like to try outpatient management at this time and will be discharged home with Protonix, Levsin and Phenergan to follow-up with his PCP. He was strongly encouraged to follow-up with a GI specialist given his history of colitis, alcoholism and ongoing issues with abdominal pain/nausea/vomiting. He will return to the emergency department if symptoms change or worsen. SUPERVISED APC VISIT, PHYSICIAN ATTESTATION: Based on the medical record the care appears appropriate. ? Medical Records Medical records reviewed: Yes I reviewed the patient's medical records Lab Data Lab results reviewed: Yes I reviewed the patient's lab results Labs: Lab Results 04/02/24 04/02/24 04/02/24 Range/Units 17:33 17:44 17:54 WBC 7.1 (4.0-11.0) 10^3/uL RBC 4.83 (4.70-6.10) 10^6/uL Hgb 16.5 (14.0-18.0) g/dL Hct 46.9 (42.0-54.0) % MCV 97.1 H (80.0-94.0) fL MCH 34.2 H (25.9-34.0) pg MCHC 35.2 (29.9-35.2) g/dL RDW 12.5 (11.0-15.0) % Plt Count 242 (150-450) 10^3/uL MPV 9.3 L (9.5-13.5) fL Neut % (Auto) 54.5 (43.0-75.0) % Lymph % (Auto) 26.4 (20.5-60.0) % [place] % (Auto) 17.0 H (1.7-12.0) % Eos % (Auto) 1.0 (0.9-7.0) % Baso % (Auto) 0.8 (0.2-2.0) % Neut # (Auto) 3.9 (1.4-6.5) 10^3/uL Lymph # (Auto) 1.9 (1.2-3.8) 10^3/uL [place] # (Auto) 1.2 H (0.3-0.8) 10^3/uL Eos # (Auto) 0.1 (0.0-0.7) 10^3/uL Baso # (Auto) 0.1 (0.0-0.1) 10^3/uL Abs Immat Gran (auto) 0.02 (0.00-0.03) 10^3/uL Imm/Tot Granulo (auto) 0.3 (0.0-0.5) % ESR 11 (<=15) mm/hr Sodium 137 (136-145) mmol/L Potassium 3.7 (3.5-5.1) mmol/L Chloride 98 (98-107) mmol/L Carbon Dioxide 21.9 (21.0-32.0) mmol/L Anion Gap 20.8 BUN 3.0 L (7.0-18.0) mg/dL Creatinine 0.72 (0.70-1.30) mg/dL Est GFR ( Amer) >60 (>=60) Est GFR (Non-Af Amer) >60 (>=60) BUN/Creatinine Ratio 4.2 Glucose 93 (74-106) mg/dL Lactate 3.2 H* (0.4-2.0) mmol/L Calcium 9.7 (8.5-10.1) mg/dL Total Bilirubin 0.7 (0.2-1.0) mg/dL AST 166 H (15-37) U/L ALT 230 H (16-63) U/L Alkaline Phosphatase 89 (46-116) U/L C-Reactive Protein <0.50 (<=0.50) mg/dL Total Protein 7.2 (6.4-8.2) g/dL Albumin 4.4 (3.4-5.0) g/dL Globulin 2.8 g/dL Albumin/Globulin Ratio 1.6 Lipase 28.0 (16.0-77.0) U/L Urine Color (YELLOW) Urine Clarity (CLEAR) Urine pH (5.0-9.0) Ur Specific [place] (1.005-1.025) Urine Protein (NEG/TRACE) mg/dL Urine Glucose (UA) (NEGATIVE) mg/dL Urine Ketones (NEGATIVE) mg/dL Urine Occult Blood (NEGATIVE) Urine Nitrite (NEGATIVE) Urine Bilirubin (NEGATIVE) Urine Urobilinogen (0.2-1.0) EU/dL Ur Leukocyte Esterase (NEGATIVE) Urine Opiates Screen Negative (NEGATIVE) Ur Buprenorphine Scrn Negative (NEGATIVE) Ur Oxycodone Screen Negative (NEGATIVE) Urine Methadone Screen Negative (NEGATIVE) Ur Barbiturates Screen Negative (NEGATIVE) U Tricyclic Antidepress Negative (NEGATIVE) Ur Phencyclidine Scrn Negative (NEGATIVE) Ur Amphetamines Screen Negative (NEGATIVE) U Methamphetamines Scrn Negative (NEGATIVE) U Benzodiazepines Scrn Negative (NEGATIVE) Urine Cocaine Screen Negative (NEGATIVE) U Cannabinoids Screen Positive A (NEGATIVE) Ethanol Quant 269 mg/dL 04/02/24 Range/Units 17:55 WBC (4.0-11.0) 10^3/uL RBC (4.70-6.10) 10^6/uL Hgb (14.0-18.0) g/dL Hct (42.0-54.0) % MCV (80.0-94.0) fL MCH (25.9-34.0) pg MCHC (29.9-35.2) g/dL RDW (11.0-15.0) % Plt Count (150-450) 10^3/uL MPV (9.5-13.5) fL Neut % (Auto) (43.0-75.0) % Lymph % (Auto) (20.5-60.0) % [place] % (Auto) (1.7-12.0) % Eos % (Auto) (0.9-7.0) % Baso % (Auto) (0.2-2.0) % Neut # (Auto) (1.4-6.5) 10^3/uL Lymph # (Auto) (1.2-3.8) 10^3/uL [place] # (Auto) (0.3-0.8) 10^3/uL Eos # (Auto) (0.0-0.7) 10^3/uL Baso # (Auto) (0.0-0.1) 10^3/uL Abs Immat Gran (auto) (0.00-0.03) 10^3/uL Imm/Tot Granulo (auto) (0.0-0.5) % ESR (<=15) mm/hr Sodium (136-145) mmol/L Potassium (3.5-5.1) mmol/L Chloride (98-107) mmol/L Carbon Dioxide (21.0-32.0) mmol/L Anion Gap BUN (7.0-18.0) mg/dL Creatinine (0.70-1.30) mg/dL Est GFR ( Amer) (>=60) Est GFR (Non-Af Amer) (>=60) BUN/Creatinine Ratio Glucose (74-106) mg/dL Lactate (0.4-2.0) mmol/L Calcium (8.5-10.1) mg/dL Total Bilirubin (0.2-1.0) mg/dL AST (15-37) U/L ALT (16-63) U/L Alkaline Phosphatase (46-116) U/L C-Reactive Protein (<=0.50) mg/dL Total Protein (6.4-8.2) g/dL Albumin (3.4-5.0) g/dL Globulin g/dL Albumin/Globulin Ratio Lipase (16.0-77.0) U/L Urine Color Lt. yellow (YELLOW) Urine Clarity Clear (CLEAR) Urine pH 6.0 (5.0-9.0) Ur Specific [place] <=1.005 A (1.005-1.025) Urine Protein Negative (NEG/TRACE) mg/dL Urine Glucose (UA) Negative (NEGATIVE) mg/dL Urine Ketones Negative (NEGATIVE) mg/dL Urine Occult Blood Negative (NEGATIVE) Urine Nitrite Negative (NEGATIVE) Urine Bilirubin Negative (NEGATIVE) Urine Urobilinogen 0.2 (0.2-1.0) EU/dL Ur Leukocyte Esterase Negative (NEGATIVE) Urine Opiates Screen (NEGATIVE) Ur Buprenorphine Scrn (NEGATIVE) Ur Oxycodone Screen (NEGATIVE) Urine Methadone Screen (NEGATIVE) Ur Barbiturates Screen (NEGATIVE) U Tricyclic Antidepress (NEGATIVE) Ur Phencyclidine Scrn (NEGATIVE) Ur Amphetamines Screen (NEGATIVE) U Methamphetamines Scrn (NEGATIVE) U Benzodiazepines Scrn (NEGATIVE) Urine Cocaine Screen (NEGATIVE) U Cannabinoids Screen (NEGATIVE) Ethanol Quant mg/dL Imaging Data CT scan - abdomen: Attestation: I have reviewed the pertinent imaging results. Radiologist's impression: ITS Impressions Abdomen/Pelvis CT 04/02/24 17:33 Impression: 1. No evidence of acute abdominal or pelvic process. No CT findings to explain patient's abdominal pain. 2. Colonic diverticulosis with no evidence of diverticulitis. Stable significant diffuse fatty infiltration of the liver. Electronically authenticated by: PRAVEEN WILLIAMSON Date: 04/02/2024 20:02 Discharge Plan Discharge Stand Alone Forms: Portal Instructions Chief Complaint: Abdominal Pain Clinical Impression: Abdominal pain, Nausea & vomiting, Alcohol intoxication Patient Disposition: Home, Self-Care Time of Disposition Decision: 20:11 Condition: Good Prescriptions / Home Meds: New pantoprazole [Protonix] 40 mg tablet,delayed release (DR/EC) 40 mg PO DAILY Qty: 7 0RF hyoscyamine sulfate [Levsin] 0.125 mg tablet 0.125 mg PO Q6H PRN (Reason: abdominal pain) Qty: 12 0RF promethazine 25 mg tablet 25 mg PO Q6H PRN (Reason: nausea and vomiting) Qty: 12 0RF No Action albuterol sulfate 2.5 mg /3 mL (0.083 %) Solution For Nebulization 2.5 mg inhalation Q2H PRN (Reason: Dyspnea) Qty: 75 11RF Print Language: Tajik Instructions: Alcohol Intoxication (ED), Acute Nausea and Vomiting (ED), Abdominal Pain (ED) Referrals: ABIDA ANDINO [Physician] - 1 week Serge Umaña MD [Primary Care Provider] - 1 week Discharge Date/Time: 04/02/24 20:31
[2024-04-02 18:08] LABS: Basophils Absolute Auto 0.1 10^3/uL (0.0-0.1); Basophils Percent Auto 0.8 % (0.2-2.0); Eosinophils Absolute Auto 0.1 10^3/uL (0.0-0.7); Hematocrit 46.9 % (42.0-54.0); Hemoglobin 16.5 g/dL (14.0-18.0); Immature Granulocytes Abs Auto 0.02 10^3/uL (0.00-0.03); Immature Granulocytes Pct Auto 0.3 % (0.0-0.5); Lymphocytes Absolute Auto 1.9 10^3/uL (1.2-3.8); Lymphocytes Percent Auto 26.4 % (20.5-60.0); Mean Corpuscular HGB Conc 35.2 g/dL (29.9-35.2); Mean Corpuscular Hemoglobin 34.2 pg (25.9-34.0); Mean Corpuscular Volume 97.1 fL (80.0-94.0); Mean Platelet Volume 9.3 fL (9.5-13.5); Monocytes Absolute Auto 1.2 10^3/uL (0.3-0.8); Neutrophils Absolute Auto 3.9 10^3/uL (1.4-6.5); Neutrophils Percent Auto 54.5 % (43.0-75.0); Platelet Count 242 10^3/uL (150-450); Red Blood Count 4.83 10^6/uL (4.70-6.10); Red Cell Distribution Width 12.5 % (11.0-15.0); White Blood Count 7.1 10^3/uL (4.0-11.0)
[2024-04-02 18:09] LABS: Bilirubin Urine NEGATIVE (NEGATIVE); Blood Urine NEGATIVE (NEGATIVE); Clarity Urine CLEAR (CLEAR); Color Urine LT. YELLOW (YELLOW); Glucose Urine UA NEGATIVE (NEGATIVE); Ketones Urine NEGATIVE (NEGATIVE); Leukocyte Esterase Urine NEGATIVE (NEGATIVE); Nitrite Urine NEGATIVE (NEGATIVE); Protein Urine NEGATIVE (NEG/TRACE); Specific Gravity Urine <=1.005 (1.005-1.025); Urobilinogen Urine 0.2 EU/dL (0.2-1.0)
[2024-04-02] MEDS: 0.9 % SODIUM CHLORIDE 1,000 ML 1000 ML IV (18:13)
[2024-04-02 18:28] LABS: Urine Microscopic Indicated NO
[2024-04-02 18:30] LABS: Alanine Aminotransferase 230 U/L (16-63); Albumin Globulin Ratio 1.6; Albumin Level 4.4 g/dL (3.4-5.0); Alkaline Phosphatase 89 U/L (46-116); Anion Gap 20.8; Aspartate Amino Transferase 166 U/L (15-37); BUN Creatinine Ratio 4.2; Bilirubin Total 0.7 mg/dL (0.2-1.0); Calcium 9.7 mg/dL (8.5-10.1); Carbon Dioxide 21.9 mmol/L (21.0-32.0); Chloride 98 mmol/L (98-107); Estimated GFR (African America >60 (>=60); Estimated GFR (Non-African Ame >60 (>=60); Globulin 2.8 g/dL; Glucose 93 mg/dL (74-106); Potassium 3.7 mmol/L (3.5-5.1); Sodium 137 mmol/L (136-145); Total Protein 7.2 g/dL (6.4-8.2)
[2024-04-02] MEDS: ONDANSETRON PF 4 MG/2 ML VIAL IV (18:31)
[2024-04-02] MEDS: FAMOTIDINE/PF 20 MG/2 ML VIAL IV (18:32)
[2024-04-02] MEDS: HYDROMORPHONE HCL 1 MG/ML CARTRIDGE 0.5 MG IVP (18:33)
[2024-04-02] MEDS: HYOSCYAMINE SULFATE 0.125 MG TAB.SUBL SL (18:35)
[2024-04-02 18:41] LABS: Lactate/Lactic Acid 3.2 mmol/L (0.4-2.0)
[2024-04-02 18:42] VITALS: PULSE 96; O2SAT 97
[2024-04-02 18:49] LABS: Erythrocyte Sedimentation Rate 11 mm/hr (<=15)
[2024-04-02 19:10] LABS: C Reactive Protein <0.50 mg/dL (<=0.50)
[2024-04-02 19:12] VITALS: PULSE 107; O2SAT 95
[2024-04-02] MEDS: ALBUTEROL SULFATE 2.5 MG/3 ML VIAL NEB IH (19:12)
[2024-04-02] MEDS: PROMETHAZINE HCL 25 MG in 0.9 % SODIUM CHLORIDE 50 ML 204 MG IV (19:20)
[2024-04-02 19:27] VITALS: BP 116/90; PULSE 70; O2SAT 95
[2024-04-02 19:27] LABS: Amphetamine Screen Urine NEGATIVE (NEGATIVE); Barbiturates Screen Urine NEGATIVE (NEGATIVE); Benzodiazepines Screen Urine NEGATIVE (NEGATIVE); Buprenorphine Screen Urine NEGATIVE (NEGATIVE); Cannabinoid Screen Urine POSITIVE (NEGATIVE); Cocaine Screen Urine NEGATIVE (NEGATIVE); Methadone Screen Urine NEGATIVE (NEGATIVE); Methamphetamines Screen Urine NEGATIVE (NEGATIVE); Opiate Screen Urine NEGATIVE (NEGATIVE); Oxycodone Screen Urine NEGATIVE (NEGATIVE); Phencyclidine Screen Urine NEGATIVE (NEGATIVE); Tricyclic Antidepressant Urine NEGATIVE (NEGATIVE)
[2024-04-02 19:29] LABS: Ethanol 269 mg/dL
[2024-04-02 20:25] VITALS: BP 104/69; PULSE 89; O2SAT 97
== END 2024-04-02 20:31 | disposition home or self-care (01) ==
PROVIDERS: Physician Assistant; Emergency Provider Emergency Medicine; PCP Family Medicine
DX: R10.9 Unspecified abdominal pain (principal); R11.2 Nausea with vomiting, unspecified; F10.129 Alcohol abuse with intoxication, unspecified; Y90.8 Blood alcohol level of 240 mg/100 ml or more; F17.200 Nicotine dependence, unspecified, uncomplicated; F12.90 Cannabis use, unspecified, uncomplicated
CPT/HCPCS: 36415; 74177; 80053; 80307; 80320; 81003; 83605; 83690; 85025; 85652; 86140; 94640; 96361; 96365; 96375; 99285; J1170; J2250; J2405; Q9967

== ENCOUNTER 2024-07-18 19:26 | Emergency (ER) | payer SELFPAY ==
--- OUTSIDE RECORDS SUMMARY | 2024-07-18 19:38 | XMS_ITS | CCD ---
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 15:44-0400 Diastolic blood pressure 82 mm[Hg] Momo SANTOSL [facility] 05-18-2023 15:44-0400 Heart rate 74 /min Momo NILL [facility] 05-18-2023 15:44-0400 Respiratory rate 16 /min Momo SANTOSL [facility] 05-18-2023 15:44-0400 Systolic blood pressure 144 mm[Hg] Momo SANTOSL [facility] Encounters Encounter Date Encounter Type Care Provider Facility Start: 06-14-2023 End: 06-15-2023 ambulatory Momo SANTOSL Facility: [facility] Start: 06-01-2023 End: 06-02-2023 ambulatory Momo R TOML Facility:CD:[id number] Start: 05-18-2023 End: 05-19-2023 ambulatory Momo DEE Facility:[facility] Start: 05-18-2023 End: 05-18-2023 Patient [...] End: 08-19-2018 Patient encounter procedure CHEO CAVAZOS Facility:[facility] Start: 07-19-2018 End: 07-20-2018 Patient encounter procedure CHEO CAVAZOS Facility:[facility] Start: 05-03-2018 End: 05-04-2018 Patient encounter procedure DEFAULT PHYSICIAN Facility:[facility] Procedures Date Procedure Procedure Detail Performing Clinician Cholecystectomy Momo DEE Colonoscopy Momo DEE Esophagogastroduodenoscopy Rossana estradajavi SANTOSL Immunizations Immunization Date Immunization Notes Care Provider Fa [facility] 10-29-2021 SARS-CoV-2 (COVID-19 ) mRNA BNT-162b2 vax Momo NILL [facility] Comment on above: Result Comment: 2022: [facility] 05-11-2021 SARS-CoV-2 (COVID-19 ) mRNA BNT-162b2 vax Momo NILL [facility] Comment on above: Result Comment: 2022: [facility] 04-20-2021 SARS-CoV-2 (COVID-19 ) mRNA BNT-162b2 vax Momo NILL [facility] Comment on above: Result Comment: 2022: [facility] Payers Date Payer Category Payer Unknown [id number] 1995 Unknown [id number] 2.16.8 [id number] 1995 Unknown [id number] 2.16.8 [id number] 1995 Unknown [id number] 2.16.8 [id number] 1994 Unknown [id number] 2.16.84 [id number] 1994 Unknown [id number] 2.16.84 [id number] 1994 Unknown [id number] 2.16.84 [id number] 1994 Unknown [id number] 2.16.84 [id number] 1994 Unknown [id number] 2.16.8 [id number] 1994 Unknown [id number] 2.16.8 [id number] 1994 Unknown [id number] 2.16.8 [id number] 1960 Self-pay [id number] 1960 Self-pay Unknown Social History Date Type Detail Facility Start: 05-18-2023 Tobacco smoking status Heavy t obacco smoker (finding) [facility] Tobacco smoking status Former sm okeless tobacco user, quit more than 30 days ago [facility] Sex Assigned At Male [facility] Functional Status Date Assessment Result Facility 05-18-2023 Functional Status N/A [facility] Clinical Note 05-18-2023 Note Date & Type Note Facility 05-18-2023 Note Chief Complaint consultation for rectal bleeding HPI Staff 28 year old male presents on consultation from Dr. Umaña for rectal bleeding. Presented to [facility] 04/14 with complaint of rectal bleeding [...] qualifying data Procedure/Surgical (more content not included)... [facility] Comment on above: Result Comment: Elec tronically Signed By: LEILA HERRERA, Momo Burleson\Date and Time Signed: 05/18/23 16:35 EDT History and physical note 04-29-2023 Note Date & Type Note Facility 04-29-2023 Note [id number] #[id number]:127 [facility] Evaluation + Plan note Note Date & Type Note Facility Evaluation + Plan note No data available for this section [facility] Discharge instructions Note Date & Type Note Facility Hospital Discharge instructions No data available for this section [facility] Progress note Note Date & Type Note Facility Progress note No data available for this section [facility] Summary Purpose Family History No Family History Records FoundNo Family History Records FoundNo Family History Records Found Advance Directives No Advanced Directives Records FoundNo Advanced Directives Records FoundNo Advanced Directives Records Found Additional Source Comments (unrecognized sect ion and content) No Status Records FoundNo Status Records FoundNo Status Records Found INFORMATION SOURCE (unrecogn ized section and content) DATE CREATED AUTHOR 11/07/2018 [facility] DATE CREATED AUTHOR AUTHOR'S ORGANIZ ATION 02/03/2023 [facility] DATE CREATED AUTHOR AUTHOR'S ORGANIZ ATION 06/22/2023 [facility] Patient Care team informatio n (unrecognized section and content) Personnel Name: Cisco Umaña MD Address: Address: [address] [place] [address] FOR RECORDS PERTAINING TO PATIENTS WHO ARE [...] BE BASED ON THE PRIMARY CLINICAL RECORDS. [facility] provides no warranty or guarantee of the accuracy or completeness of information in this document.
[2024-07-18 19:59] VITALS: BP 141/91; PULSE 101; TEMP 36.7; O2SAT 97; BMI 21.5
--- NOTE | 2024-07-18 20:50 | PC.NURSE ---
Patient states he has large hemorrhoid for 8 months. states it is making it difficult to go to the bathroom. states he has not taken any stool softeners
--- NOTE | 2024-07-18 21:06 | CT_ITS ---
[address] [address] Patient Name: SHAHIDA ALVAREZ MRN: [id number] date: 1995 Sex: M Assigned Patient Location: ER Current Patient Location: ER Accession/Order Number: [id number] Exam Date: 07/18/2024 22:10 Report Date: 07/18/2024 23:15 At the request of: JANE RED Procedure: CT abdomen pelvis w con EXAM: CT abdomen pelvis w con HISTORY: abdominal pain/anal pain/large external hemorrhoid COMPARISON: CT abdomen/pelvis 04/02/2024 TECHNIQUE: Axial CT images of the abdomen and pelvis were obtained after the administration of intravenous contrast. Coronal and sagittal reformats were provided. Dose reduction techniques were achieved by using automated exposure control and/or adjustment of mA and/or kV according to patient size and/or use of iterative reconstruction technique. FINDINGS: Lung Bases: Clear. Lower Heart: Unremarkable. Liver: Postcontrast findings compatible with hepatic steatosis. No focal hepatic lesion. Normal liver contour. Liver measures 18.3 cm in craniocaudal dimension. No intrahepatic biliary ductal dilation. Gallbladder: Surgically absent. Pancreas: Uniform enhancement. No ductal dilation. No peripancreatic inflammatory change. Spleen: Unremarkable. Adrenal Glands: Normal. Kidneys / Ureters / Bladder: Symmetric renal enhancement. No hydronephrosis. No hydroureter. Unremarkable bladder, which opacifies on delayed images. Lower esophagus / Stomach: Normal. Bowel / Mesentery: No evidence of obstruction. No free intraabdominal air. Scattered colonic diverticula. Lymph Nodes: No bulky adenopathy. Vasculature: No aneurysmal dilation. Few scattered atherosclerotic calcifications. Reproductive Organs: Unremarkable. Extraperitoneal Soft Tissues: Right-sided hydrocele. Bones: Mild discogenic degeneration at L5-S1. No concerning lytic or blastic process. CT/CT abdomen pelvis w con IMPRESSION: 1. No CT evidence of acute abdominopelvic process. 2. Hepatomegaly and hepatic steatosis. Electronically authenticated by: BERNICE LUX Date: 07/18/2024 23:15
--- NOTE | 2024-07-18 21:07 | XR_ITS ---
The [address] [address] Patient Name: SHAHIDA ALVAREZ MRN: [id number] date: 1995 Sex: M Assigned Patient Location: ER Current Patient Location: ER Accession/Order Number: [id number] Exam Date: 07/18/2024 22:10 Report Date: 07/18/2024 23:06 At the request of: JANE RED Procedure: XR chest 2V EXAM: XR chest 2V HISTORY: cough COMPARISON: Chest radiographs 01/10/2024 TECHNIQUE: 2 views of the chest FINDINGS: Lungs symmetrically and adequately inflated. No focal consolidation or evidence of pulmonary edema. No pneumothorax or significant pleural effusion. Unremarkable cardiomediastinal contours. No acute osseous abnormality. Upper abdominal surgical clips. XR/XR chest 2V IMPRESSION: No acute cardiopulmonary findings. Electronically authenticated by: BERNICE LUX Date: 07/18/2024 23:06
--- NOTE | 2024-07-18 21:08 | ED.GENADUL1 ---
HPI HPI - General Adult General Chief complaint: Urogenital-Male Stated complaint: rectal bleeding Time Seen by Provider: 07/18/24 20:55 Source: patient Mode of arrival: walk-in Limitations: no limitations History of Present Illness HPI narrative: patient complains of bleeding hemorrhoid. States it has been present for over 10 years. states it is bleeding more now also complains of abdominal pain, nausea and vomiting. Has a dry cough. Not short of breath. No fever just overall feels ill. Now wearing depends because of the bleeding hemorrhoid Related Data Previous Rx's ?Medication ?Instructions ?Recorded albuterol sulfate 2.5 mg/3 mL 2.5 mg (3 mL) inhalation Q2H PRN 01/12/24 (0.083 %) solution for nebulization Dyspnea #75 mL hyoscyamine sulfate 0.125 mg 0.125 mg PO Q6H PRN abdominal pain 04/02/24 tablet (Levsin) #12 tabs pantoprazole 40 mg tablet,delayed 40 mg PO DAILY #7 tabs 04/02/24 release (Protonix) promethazine 25 mg tablet 25 mg PO Q6H PRN nausea and 04/02/24 vomiting #12 tabs Allergies Allergy/AdvReac Type Severity Reaction Status Date / Time No Known Drug Allergies Allergy Verified 04/02/24 17:32 Opioid HPI Opioid Management Most Recent Opioid Data: Last Pain Scale 4 01/12/24 08:23 01/12/24 Last ORT Total Score 6 01/09/24 21:17 01/09/24 Last ORT Risk Category Moderate Risk 01/09/24 21:17 01/09/24 Ur Phencyclidine Scrn Negative (NEGATIVE) 04/02/24 17:33 04/02/24 Review of Systems ROS Status of ROS 10 or more systems reviewed and unremarkable except as noted in history and below 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 - Salmonella enteritis (ICD-10) Colitis ?K52.9 - Noninfective gastroenteritis and colitis, unspecified (ICD-10) Acute proctitis ?K62.89 - Other specified diseases of anus and rectum (ICD-10) Chronic cough ?R05.3 - Chronic cough (ICD-10) Nausea & vomiting ?R11.2 - Nausea with vomiting, unspecified (ICD-10) Prostatitis ?N41.9 - Inflammatory disease of prostate, unspecified (ICD-10) Fatty liver ?K76.0 - Fatty (change of) liver, not elsewhere classified (ICD-10) Chronic alcoholism ?F10.20 - Alcohol dependence, uncomplicated (ICD-10) Anxiety ?F41.9 - Anxiety disorder, unspecified (ICD-10) ADHD ?F90.9 - Attention-deficit hyperactivity disorder, unspecified type (ICD-10) Abdominal pain ?R10.9 - Unspecified abdominal pain (ICD-10) Diverticulosis ?K57.90 - Diverticulosis of intestine, part unspecified, without perforation or abscess without bleeding (ICD-10) 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 - Intussusception (ICD-10) GI bleeding ?K92.2 - Gastrointestinal hemorrhage, unspecified (ICD-10) Surgical History (Updated 04/14/23 @ 08:24 by Fatimah Garrido) H/O esophagogastroduodenoscopy ?Z98.890 - Other specified postprocedural states (ICD-10) H/O colonoscopy ?Z98.890 - Other specified postprocedural states (ICD-10) Hx of cholecystectomy ?Z90.49 - Acquired absence of other specified parts of digestive tract (ICD-10) Family History (Updated 05/19/23 @ 11:41 by Jewels Case RN) Other Multiple sclerosis Social History (Updated 04/14/23 @ 08:27 by Fatimah Garrido) Within the past year, how often did you have a drink containing alcohol: 2-4 times a month Within the past year, how many standard drinks containing alcohol did you have on a typical day: 3 or 4 Within the past year, how often did you have six or more drinks on one occasion: less than monthly Total score: 3 Score interpretation: A score of 4 or more indicates drinking is likely to affect patient's safety. Smoking status: Heavy tobacco smoker Do you use any of these nicotine containing products: vaping products and smokeless tobacco Non-prescribed substance use: cannabis (any form) Previous occupational history: current, [employer] Highest level of school completed/degree received: 11th grade Are you now , , , , never or living with a partner: living with partner Little interest or pleasure in doing things: not at all Feeling down, depressed, or hopeless: not at all Exam Constitutional Vital Signs, click to edit/add: Last Vital Signs Temp 98.0 F 07/18/24 19:59 Pulse 101 H 07/18/24 19:59 Resp 18 07/18/24 21:32 BP 141/91 07/18/24 19:59 Pulse Ox 97 07/18/24 19:59 O2 Del Method Room Air 07/18/24 19:59 Common normals: no apparent distress (unkempt . body odor), average body habitus, oriented x3 and well nourished HENMT Common normals: normocephalic and head/scalp atraumatic Eye Common normals: PERRL and EOMs intact bilaterally Respiratory Common normals: normal respiratory effort, no retractions and no use of accessory muscles Cardio Common normals: regular rate, regular rhythm, S1 normal heart sound and S2 normal heart sound GI Other: diffuse nonspecific mild -mod tenderness. no guarding Other: large external hemorrhoid with evidence of recent bleeding. Thrombosed in size Extremity Common normals: normal to inspection and full ROM Neuro Common normals: oriented x3, CN's II-XII intact bilaterally, moves all extremities and no focal motor deficits Sensorium/orientation: awake Psych Appearance: grossly normal Course Vital Signs Vital signs: Vital Signs Temperature 98.0 F 07/18/24 19:59 Pulse Rate 101 H 07/18/24 19:59 Respiratory Rate 20 07/18/24 19:59 Blood Pressure 141/91 07/18/24 19:59 Pulse Oximetry 97 07/18/24 19:59 Oxygen Delivery Method Room Air 07/18/24 19:59 Temperature 98.0 F 07/18/24 19:59 Pulse Rate 101 H 07/18/24 19:59 Respiratory Rate 18 07/18/24 21:32 Blood Pressure 141/91 07/18/24 19:59 Pulse Oximetry 97 07/18/24 19:59 Oxygen Delivery Method Room Air 07/18/24 19:59 Medical Decision Making MDM Narrative Medical decision making narrative: patient presented complaining of a chronic hemorrhoid that is again bleeding. exam with thrombosed hemorrhoid with recent evidence of bleeding but not actively bleeding now. he also complained of nausea and vomiting. No nausea or vomiting while here in the department and labs do not support evidence of dehydration. Does have mild elevation of lipase but CT neg for any acute findings including pancreatitis. H/H WNL patient informed treatment of his hemorrhoid by soaking in the tub for now and using OTC creams. Will refer to gen. surgery to address his hemorrhoid as he would like it removed patient also informed of CT finding of fatty liver and associated elevated LFTs Lab Data Labs: Lab Results 07/18/24 07/18/24 07/18/24 Range/Units 21:15 21:16 21:40 WBC 6.8 (4.0-11.0) 10^3/uL RBC 4.64 L (4.70-6.10) 10^6/uL Hgb 15.2 (14.0-18.0) g/dL Hct 44.3 (42.0-54.0) % MCV 95.5 H (80.0-94.0) fL MCH 32.8 (25.9-34.0) pg MCHC 34.3 (29.9-35.2) g/dL RDW 12.4 (11.0-15.0) % Plt Count 223 (150-450) 10^3/uL MPV 9.4 L (9.5-13.5) fL Neut % (Auto) 52.2 (43.0-75.0) % Lymph % (Auto) 27.5 (20.5-60.0) % [place] % (Auto) 15.6 H (1.7-12.0) % Eos % (Auto) 3.1 (0.9-7.0) % Baso % (Auto) 1.2 (0.2-2.0) % Neut # (Auto) 3.6 (1.4-6.5) 10^3/uL Lymph # (Auto) 1.9 (1.2-3.8) 10^3/uL [place] # (Auto) 1.1 H (0.3-0.8) 10^3/uL Eos # (Auto) 0.2 (0.0-0.7) 10^3/uL Baso # (Auto) 0.1 (0.0-0.1) 10^3/uL Abs Immat Gran (auto) 0.03 (0.00-0.03) 10^3/uL Imm/Tot Granulo (auto) 0.4 (0.0-0.5) % Sodium 139 (136-145) mmol/L Potassium 3.7 (3.5-5.1) mmol/L Chloride 102 (98-107) mmol/L Carbon Dioxide 22.0 (21.0-32.0) mmol/L Anion Gap 18.7 BUN 4.0 L (7.0-18.0) mg/dL Creatinine 0.69 L (0.70-1.30) mg/dL Est GFR ( Amer) >60 (>=60 mL/min/1.73m^2) Est GFR (Non-Af Amer) >60 (>=60 mL/min/1.73m^2) BUN/Creatinine Ratio 5.8 Glucose 91 (74-106) mg/dL Lactate 1.6 (0.4-2.0) mmol/L Calcium 8.7 (8.5-10.1) mg/dL Total Bilirubin 0.4 (0.2-1.0) mg/dL AST 124 H (15-37) U/L ALT 131 H (16-63) U/L Alkaline Phosphatase 100 (46-116) U/L Total Protein 6.8 (6.4-8.2) g/dL Albumin 3.6 (3.4-5.0) g/dL Globulin 3.2 g/dL Albumin/Globulin Ratio 1.1 Lipase 82.0 H (16.0-77.0) U/L Urine Color Lt. yellow (YELLOW) Urine Clarity Clear (CLEAR) Urine pH 6.0 (5.0-9.0) Ur Specific [place] <=1.005 A (1.005-1.025) Urine Protein Negative (NEG/TRACE) mg/dL Urine Glucose (UA) Negative (NEGATIVE) mg/dL Urine Ketones Negative (NEGATIVE) mg/dL Urine Occult Blood Negative (NEGATIVE) Urine Nitrite Negative (NEGATIVE) Urine Bilirubin Negative (NEGATIVE) Urine Urobilinogen 0.2 (0.2-1.0) EU/dL Ur Leukocyte Esterase Negative (NEGATIVE) Influenza Type A Ag Negative Influenza Type B Ag Negative SARS-CoV-2 Ag (CV2AG) Negative (NEGATIVE) Discharge Plan Discharge Chief Complaint: Urogenital-Male Clinical Impression: Hemorrhoid thrombosis Patient Disposition: Home, Self-Care Prescriptions / Home Meds: No Action albuterol sulfate 2.5 mg /3 mL (0.083 %) Solution For Nebulization 2.5 mg inhalation Q2H PRN (Reason: Dyspnea) Qty: 75 11RF pantoprazole [Protonix] 40 mg tablet,delayed release (DR/EC) 40 mg PO DAILY Qty: 7 0RF hyoscyamine sulfate [Levsin] 0.125 mg tablet 0.125 mg PO Q6H PRN (Reason: abdominal pain) Qty: 12 0RF promethazine 25 mg tablet 25 mg PO Q6H PRN (Reason: nausea and vomiting) Qty: 12 0RF Print Language: Prydeinig Instructions: Hemorrhoids (ED) Additional Instructions: follow up with senior litigation paralegal surgeon Dr Tanner. celia hemorrhoids as discussed. Use hemorrhoidal cream that you can purchase at the drug store Referrals: Serge Umaña MD [Primary Care Provider] - 1 week
[2024-07-18 21:32] LABS: Basophils Absolute Auto 0.1 10^3/uL (0.0-0.1); Basophils Percent Auto 1.2 % (0.2-2.0); Eosinophils Absolute Auto 0.2 10^3/uL (0.0-0.7); Eosinophils Percent Auto 3.1 % (0.9-7.0); Hematocrit 44.3 % (42.0-54.0); Hemoglobin 15.2 g/dL (14.0-18.0); Immature Granulocytes Abs Auto 0.03 10^3/uL (0.00-0.03); Immature Granulocytes Pct Auto 0.4 % (0.0-0.5); Lymphocytes Absolute Auto 1.9 10^3/uL (1.2-3.8); Lymphocytes Percent Auto 27.5 % (20.5-60.0); Mean Corpuscular HGB Conc 34.3 g/dL (29.9-35.2); Mean Corpuscular Hemoglobin 32.8 pg (25.9-34.0); Mean Corpuscular Volume 95.5 fL (80.0-94.0); Mean Platelet Volume 9.4 fL (9.5-13.5); Monocytes Absolute Auto 1.1 10^3/uL (0.3-0.8); Monocytes Percent Auto 15.6 % (1.7-12.0); Neutrophils Absolute Auto 3.6 10^3/uL (1.4-6.5); Neutrophils Percent Auto 52.2 % (43.0-75.0); Platelet Count 223 10^3/uL (150-450); Red Blood Count 4.64 10^6/uL (4.70-6.10); Red Cell Distribution Width 12.4 % (11.0-15.0); White Blood Count 6.8 10^3/uL (4.0-11.0)
[2024-07-18 21:46] LABS: Influenza Virus A Antigen Negative; Influenza Virus B Antigen Negative; Internal Control Within Normal Limits; SARS-CoV-2 Ag NEGATIVE (NEGATIVE)
[2024-07-18 21:49] LABS: Bilirubin Urine NEGATIVE (NEGATIVE); Blood Urine NEGATIVE (NEGATIVE); Clarity Urine CLEAR (CLEAR); Color Urine LT. YELLOW (YELLOW); Glucose Urine UA NEGATIVE (NEGATIVE); Ketones Urine NEGATIVE (NEGATIVE); Leukocyte Esterase Urine NEGATIVE (NEGATIVE); Nitrite Urine NEGATIVE (NEGATIVE); Protein Urine NEGATIVE (NEG/TRACE); Specific Gravity Urine <=1.005 (1.005-1.025); Urobilinogen Urine 0.2 EU/dL (0.2-1.0)
[2024-07-18 21:49] LABS: Alanine Aminotransferase 131 U/L (16-63); Albumin Globulin Ratio 1.1; Albumin Level 3.6 g/dL (3.4-5.0); Alkaline Phosphatase 100 U/L (46-116); Anion Gap 18.7; Aspartate Amino Transferase 124 U/L (15-37); BUN Creatinine Ratio 5.8; Bilirubin Total 0.4 mg/dL (0.2-1.0); Calcium 8.7 mg/dL (8.5-10.1); Chloride 102 mmol/L (98-107); Estimated GFR (African America >60 (>=60 mL/min/1.73m^2); Estimated GFR (Non-African Ame >60 (>=60 mL/min/1.73m^2); Globulin 3.2 g/dL; Glucose 91 mg/dL (74-106); Potassium 3.7 mmol/L (3.5-5.1); Sodium 139 mmol/L (136-145); Total Protein 6.8 g/dL (6.4-8.2)
[2024-07-18 21:50] LABS: Urine Microscopic Indicated NO
[2024-07-18 21:51] LABS: Lactate/Lactic Acid 1.6 mmol/L (0.4-2.0)
[2024-07-18] MEDS: 0.9 % SODIUM CHLORIDE 1,000 ML 999 ML IV (22:02)
[2024-07-18 23:40] VITALS: BP 114/63; PULSE 100; O2SAT 99
== END 2024-07-18 23:54 | disposition home or self-care (01) ==
PROVIDERS: Emergency Provider Internal Medicine; PCP Family Medicine
DX: K64.5 Perianal venous thrombosis (principal); Z90.49 Acquired absence of other specified parts of digestive tract; F17.290 Nicotine dependence, other tobacco product, uncomplicated
CPT/HCPCS: 36415; 71046; 74177; 80053; 81003; 83605; 83690; 85025; 87804; 87811; 99285; Q9967

== ENCOUNTER 2024-08-17 10:48 | Outpatient (OUT) | payer SELFPAY ==
--- OUTSIDE RECORDS SUMMARY | 2024-08-17 10:51 | XMS_ITS | CCD ---
Author Organization [facility] Care Team Providers Care Psychometrist Name Role Phone PHYSICIAN, DEFAULT Admitting Unavailable PHYSICIAN, DEFAULT Attending Unavailable BRENDAN, CHRISTOPHER Admitting Unavailable BRENDAN, CHRISTOPHER Attending Unavailable BRENDAN, CHRISTOPHER Referring Unavailable BRENDAN, CHRISTOPHER Primary Care Unavailable BRENDAN, CHRISTOPHER Admitting Unavailable BRENDAN, CHRISTOPHER Attending Unavailable BRENDAN, CHRISTOPHER Referring Unavailable BRENDAN, CHRISTPATOER Primary Care Unavailable MARKER ., DR JACOBS Admitting Unavailable MARKER ., DR JACOBS Consulting Unavailable MARKER ., DR JACOBS Attending Unavailable HOY ., DR PECK Primary Care Unavailable STRAWJURGEN NOEL Consulting Unavailable HOY ., DR PECK Primary [...] Consulting Unavailable Cisco Umaña Primary Care Physician [phone] Momo DEE Attending Unavailable Allergies Allergy Classification Reported Allergen(s) Allergy Type Date of Onset Reaction(s) Facility (1 source) No Known Medication Allergies; Translations: [No Known Medication Allergies] Propensity to adverse reactions (disorder) [facility] Repository Problems Active Problems Problem Classification Problem Date Documented Date Episodic/Chronic Abdominal pain (3 sources) Generalized abdominal pain; Translations: [Generalized abdominal pain] Onset: 3 Episodic Alcohol-related disorders (2 sources) Continuous chronic alcoholism; Translations: [Alcoholism] Onset: 8 05-13-2023 Chronic Anal and rectal conditions (2 sources) Anorectal disorder; Translations: [Other specified diseases of anus and rectum] Onset: 4 Episodic Anxiety disorders (2 sources) Anxiety Onset: 8 05-13-2023 Chronic Attention-deficit, conduct, and disruptive behavior disorders (2 sources) Attention deficit hyperactivity disorder 05-13-2023 Chronic Biliary tract disease (1 source) Postcholecystectomy diarrhea 06-14-2023 Episodic 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 (3 sources) Postconcussional syndrome; Translations: [POSTCONCUSSIONAL SYNDROME] Onset: 8 Chronic Esophageal disorders (1 source) Gastroesophageal reflux disease with hiatal hernia 06-14-2023 Chronic Gastrointestinal hemorrhage (4 sources) Hemorrhage of rectum and anus; Translations: [Hemorrhage of anus and rectum] Onset: 3 Episodic Hemorrhoids (1 source) Residual hemorrhoidal skin tags; Translations: [Residual hemorrhoidal skin tags] Onset: 4 Episodic Nausea and vomiting (3 sources) Nausea and vomiting; Translations: [Nausea with vomiting, unspecified] Onset: 3 Episodic Other gastrointestinal disorders (3 sources) Altered bowel function; Translations: [Change in bowel habit] Onset: 3 Episodic Other liver diseases (2 sources) Steatosis of liver 05-18-2023 Chronic Other lower respiratory disease (1 source) Hemoptysis; Translations: [HEMOPTYSIS] Onset: 3 Episodic Other male genital disorders (2 sources) History of prostatitis 05-13-2023 Episodic Other nervous system disorders (1 source) Chronic pain; Translations: [Other chronic pain] Onset: 3 Chronic Other skin disorders (1 source) Skin tag 08-08-2024 Episodic Pneumonia (except that caused by tuberculosis or [...] UNSPECIFIED] Onset: 07-26-2022 Episodic Residual codes; unclassified (2 sources) Tobacco user Onset: 10-18-2017 05-13-2023 Episodic Unclassified (1 source) COUGH, UNSPECIFIED; Translations: [COUGH, UNSPECIFIED] Onset: 11-18-2022 Unclassified (1 source) CONTACT W/AND (SUSP) EXPOS COVID-19; Translations: [CONTACT W/AND (SUSP) EXPOS COVID-19] Onset: 07-22-2022 Results Test Name Value Interpretation Reference Range Facility Ambulatory Visit Summaryon 1 10-08-2023 Ambulatory Visit Summary Ambulatory Visit Summary MARTIN ALVAREZ Shira :1995 Visit Date:08/08/2024 Ambulatory Visit Instructions Your Care Team Attending Physician - LEILA HERRERA, Momo Sanders Primary Care Physician - Cisco Umaña MD Procedures Performed Colonoscopy (06/01/2023), EGD - Esophagogastroduodenoscopy (06/01/2023), Cholecystectomy, Colonoscopy, EGD - Esophagogastroduodenoscopy. Discharge Vitals Heart Rate (Peripheral) 72 Respiratory Rate 16 Blood Pressure 118/72 Height 175.2 cm Height 69 in Weight 72 kg Weight 158.733 lb BMI 23.46 Allergies No Known Allergies No Known Medication Allergies Problems Ongoing - Any problem that you are currently receiving treatment for. Abdominal pain, chronic, generalized ADHD Alcoholism Anxiety Change in bowel habits Fatty liver Hiatal hernia with GERD and esophagitis History of prostatitis Postcholecystectomy diarrhea Rectal bleeding Tobacco user Historical - Any problem that you are no longer receiving treatment for. Nausea & vomiting Patient Survey You may receive a survey via text or e-mail asking about your office visit. Please share your experience with us by completing your survey. We appreciate your feedback and thank you for choosing us for your care. Normal [facility] CBC AUTO DIFFon 02-03-2023 BASO # 0.1 103/ul Normal 0.0-0.1 [facility] Comment on above: Performed By: #### CBC #### [facility] [address] [address] [address] Florian Harrison Basophils/100 WBC (Bld) 0.6 % Normal 0.2-2.0 [facility] Comment on above: Performed By: #### CBC #### [facility] [address] [address] [address] Florian Harrison EO # 0.0 103/ul Normal 0.0-0.7 [facility] Comment on above: Performed By: #### CBC #### [facility] [address] [address] [address] Florian Harrison Eosinophils/100 WBC (Bld) 0.4 % Critically low 0.9-7.0 [facility] Comment on above: Performed By: #### CBC #### [facility] [address] [address] [address] Florian Harrison Erythrocyte distribution width (RBC) [Ratio] 12.2 % Normal 11.0-15.0 [facility] Comment on above: Performed By: #### CBC #### [facility] [address] [place] [address] Dr. Florian Harrison Hematocrit (Bld) [Volume fraction] 48.5 % Normal 42.0-54.0 [facility] Comment on above: Performed By: #### CBC #### [facility] [address] [address] [address] Florian Harrison Hemoglobin (Bld) [Mass/Vol] 16.6 g/dL Normal 14.0-18.0 [facility] Comment on above: Performed By: #### CBC #### [facility] [address] [address] [address] Florian Harrison IG # 0.04 10e3/ul Critically high 0.00-0.03 [facility] Comment on above: Performed By: #### CBC #### [facility] [address] [place] [address] Dr. Florian Harrison IG % 0.4 % Normal 0.0-0.5 [facility] Comment on above: Performed By: #### CBC #### [facility] [address] [address] [address] Florian Harrison LYMPH # 1.6 103/ul Normal 1.2-3.8 [facility] Comment on above: Performed By: #### CBC #### [facility] [address] [place] [address] Dr. Florian Harrison Lymphocytes/100 WBC (Bld) 14.9 % Critically low 20.5-60.0 [facility] Comment on above: Performed By: #### CBC #### [facility] [address] [place] [address] Dr. Florian Harrison MANUAL DIFF REQ NO Normal [facility] Comment on above: Performed By: #### CBC #### [facility] [address] [place] [address] Dr. Florian Harrison MCH (RBC) [Entitic mass] 33.8 pg Normal 25.9-34.0 [facility] Comment on above: Performed By: #### CBC #### [facility] [address] [place] [address] Dr. Florian Harrison MCHC (RBC) [Mass/Vol] 34.2 g/dL Normal 29.9-35.2 [facility] Comment on above: Performed By: #### CBC #### [facility] [address] [place] [address] Dr. Florian Harrison MCV (RBC) [Entitic vol] 98.8 fL Critically high 80.0-94.0 [facility] Comment on above: Performed By: #### CBC #### [facility] [address] [place] [address] Dr. Florian Harrison MONO # 2.0 103/ul Critically high 0.3-0.8 [facility] Comment on above: Performed By: #### CBC #### [facility] [address] [place] [address] Dr. Florian Harrison Monocytes/100 WBC (Bld) 17.9 % Critically high 1.7-12.0 [facility] Comment on above: Performed By: #### CBC #### [facility] [address] [place] [address] Dr. Florian Harrison NEUT # 7.2 103/ul Critically high 1.4-6.5 [facility] Comment on above: Performed By: #### CBC #### [facility] [address] [place] [address] Dr. Florian Harrison Neutrophils/100 WBC (Bld) 65.8 % Normal 43.0-75.0 [facility] Comment on above: Performed By: #### CBC #### [facility] [address] [place] [address] Dr. Florian Harrison Platelet mean volume (Bld) [Entitic vol] 9.5 fL Normal 9.5-13.5 [facility] Comment on above: Performed By: #### CBC #### [facility] [address] [place] [address] Dr. Florian Harrison PLT 275 103/ul Normal 150-450 [facility] Comment on above: Performed By: #### CBC #### [facility] [address] [place] [address] Dr. Florian Harrison RBC 4.91 106/ul Normal 4.70-6.10 [facility] Comment on above: Performed By: #### CBC #### [facility] [address] [place] [address] Dr. Florian Harrison WBC 10.9 103/ul Normal 4.0-11.0 [facility] Comment on above: Performed By: #### CBC #### [facility] [address] [place] [address] Dr. Florian Harrison INFLUENZA A AND B AGon 02-03 INFLUENZA A AG Negative Normal NEGATIVE SEE COMMENT [facility] Comment on above: Performed By: #### INFLUAB #### [facility] [address] [place] [address] Dr. Florian Harrison INFLUENZA B AG Negative Normal NEGATIVE SEE COMMENT [facility] Comment on above: Performed By: #### INFLUAB #### [facility] [address] [address] [address] Florian Harrison LACTATE/LACTIC ACIDon 2022 Lactate [Moles/Vol] 2.6 mmol/L Critically high 0.4-2.0 [facility] Comment on above: Performed By: #### LACT #### [facility] [address] [address] [address] Florian Harrison LIPASEon 02-03-2023 Lipase [Catalytic activity/Vol] 150.0 U/L Normal 73.0-393.0 [facility] Comment on above: Performed By: #### CMP, LIPA #### [facility] [address] [place] [address] Dr. Florian Harrison PROF 14(COMP METB)on 023 Albumin [Mass/Vol] 4.7 g/dL Normal 3.4-5.0 [facility] Comment on above: Performed By: #### CMP, LIPA ####[facility] [address] [address]DrJo Ann Harrison Albumin/Globulin [Mass ratio] 1.3 {ratio} Normal [facility] Comment on above: Performed By: #### CMP, LIPA ####[facility] [address] [address]Dr. Florian Harrison ALP [Catalytic activity/Vol] 78 U/L Normal 46-116 [facility] Comment on above: Performed By: #### CMP, LIPA ####[facility] [address] [address]Dr. Florian Harrison ALT [Catalytic activity/Vol] 140 U/L Critically high 16-63 [facility] Comment on above: Performed By: #### CMP, LIPA ####[facility] [address] [address]DrJo Ann Harrison Anion gap [Moles/Vol] 21.0 mmol/L Normal [facility] Comment on above: Performed By: #### CMP, LIPA ####[facility] [address] [address]Dr. Florian Harrison AST [Catalytic activity/Vol] 85 U/L Critically high 15-37 [facility] Comment on above: Performed By: #### CMP, LIPA ####[facility] [address] [address]Dr. Florian Harrison Bilirubin [Mass/Vol] 1.5 mg/dL Critically high 0.2-1.0 [facility] Comment on above: Performed By: #### CMP, LIPA ####[facility] [address] [place], [place] [address]Dr. Florian Harrison Calcium [Mass/Vol] 10.3 mg/dL Critically high 8.5-10.1 [facility] Comment on above: Performed By: #### CMP, LIPA ####[facility] [address] [place], [place] [address]Dr. Florian Harrison Chloride [Moles/Vol] 90 mmol/L Critically low 98-107 [facility] Comment on above: Performed By: #### CMP, LIPA ####[facility] [address] [place], [place] [address]Dr. Florian Harrison CO2 [Moles/Vol] 23.7 mmol/L Normal 21.0-32.0 [facility] Comment on above: Performed By: #### CMP, LIPA ####[facility] [address] [place], [place] [address]Dr. Florian Harrison Creatinine [Mass/Vol] 0.96 mg/dL Normal 0.70-1.30 [facility] Comment on above: Performed By: #### CMP, LIPA ####[facility] [address] [place], [place] [address]Dr. Florian Harrison EGFR-AF PUERTO RICAN >60 Normal >=60 [facility] Comment on above: Performed By: #### CMP, LIPA ####[facility] [address] [place], [place] [address]Dr. Florian Harrison EGFR-NON AF PUERTO RICAN >60 Normal >=60 [facility] Comment on above: Performed By: #### CMP, LIPA ####[facility] [address] [address]Dr. Florian Harrison Globulin (S) [Mass/Vol] 3.6 g/dL Normal [facility] Comment on above: Performed By: #### CMP, LIPA ####[facility] [address] [address]Dr. Florian Harrison Glucose [Mass/Vol] 97 mg/dL Normal 74-106 [facility] Comment on above: Performed By: #### CMP, LIPA ####[facility] [address] [address]Dr. Florian Harrison Potassium [Moles/Vol] 3.7 mmol/L Normal 3.5-5.1 [facility] Comment on above: Performed By: #### CMP, LIPA ####[facility] [address] [place], [place] [address]Dr. Florian Harrison Protein [Mass/Vol] 8.3 g/dL Critically high 6.4-8.2 [facility] Comment on above: Performed By: #### CMP, LIPA ####[facility] [address] [place], [place] [address]Dr. Florian Harrison Sodium [Moles/Vol] 131 mmol/L Critically low 136-145 [facility] Comment on above: Performed By: #### CMP, LIPA ####[facility] [address] [place], [place] [address]Dr. Florian Ahrrison Urea nitrogen [Mass/Vol] 7.0 mg/dL Normal 7.0-18.0 [facility] Comment on above: Performed By: #### CMP, LIPA ####[facility] [address] [place], [place] [address]Dr. Florian Harrison Urea nitrogen/Creatin ine [Mass ratio] 7.3 mg/mg Normal [facility] Comment on above: Performed By: #### CMP, LIPA ####[facility] [address] [place], [place] [address]Dr. Florian Harrison SYMPTOMATIC COVID-19 ANTIGEN on 02-03-2023 EUA Statement SEE BELOW Normal [facility] Comment on above: Result Comment: This [...] sooner. Performed By: #### C VDAGS #### [facility] [address] [place] [address] Dr. Florian Harrison SARS-CoV-2 (COVID-19) RNA JOHNNY+probe Ql (Unsp spec) Negative Normal NEGATIVE [facility] Comment on above: Performed By: #### CVDAGS #### [facility] [address] [place] [address] Dr. Florian Harrison XR CHEST 1 Von [...] JURGEN GREENE Date: 2023-02-03 01:58 Normal [facility] CBC W MANUAL DIFFon 11-19-19 23 ATYPICAL LYMPH # Normal [facility] Comment on above: Performed By: #### CBCMAN #### [facility] [address] [place] [address] Dr. Florian Harrison ATYPICAL LYMPH % Normal [facility] Comment on above: Performed By: #### CBCMAN #### [facility] [address] [address] [address] Florian Harrison BAND # Normal 0.0-0.3 [facility] Comment on above: Performed By: #### CBCRAYMON #### [facility] [address] [place] [address] Dr. Florian Harrison BAND % Normal 0-5 [facility] Comment on above: Performed By: #### CBCRAYMON #### [facility] [address] [address] [address] Florian Harrison BASOM # 0.00 103/ul Normal 0.00-0.10 [facility] Comment on above: Performed By: #### CBCRAYMON #### [facility] [address] [place] [address] Dr. Florian Harrison BASOM % 0.0 % Critically low 0.2-2.0 [facility] Comment on above: Performed By: #### CBCRAYMON #### [facility] [address] [place] [address] Dr. Florian Harrison BLAST # Normal [facility] Comment on above: Performed By: #### BERNADETTE #### [facility] [address] [place] [address] Dr. Florian Harrison BLAST % Normal [facility] Comment on above: Performed By: #### BERNADETTE #### [facility] [address] [place] [address] Dr. Florian Harrison CORRECTED WBC Normal 4.0-11.0 [facility] Comment on above: Performed By: #### CBCRAYOMN #### [facility] [address] [place] [address] Dr. Florian Harrison EOS # 0.19 103/ul Normal 0.00-0.70 [facility] Comment on above: Performed By: #### CBCRAYMON #### [facility] [address] [place] [address] Dr. Florian Harrison EOS% 2.0 % Normal 0.9-7.0 [facility] Comment on above: Performed By: #### CBCRAYMON #### [facility] [address] [place], [place] [address] Dr. Flroian Harrison HCT 43.9 % Normal 42.0-54.0 [facility] Comment on above: Performed By: #### CBCRAYMON #### [facility] [address] [place] [address] Dr. Florian Harrison HGB 14.7 g/dl Normal 14.0-18.0 [facility] Comment on above: Performed By: #### CBCRAYMON #### [facility] [address] [address] [address] Florian Harrison LYMPHM # 1.86 103/ul Normal 1.20-3.80 [facility] Comment on above: Performed By: #### CBCRAYMON #### [facility] [address] [place] [address] Dr. Florian Harrison LYMPHM% 20.0 % Critically low 20.5-60.0 [facility] Comment on above: Performed By: #### CBCRAYMON #### [facility] [address] [place] [address] Dr. Florian Harrison MCH 33.4 pg Normal 25.9-34.0 [facility] Comment on above: Performed By: #### CBCRAYMON #### [facility] [address] [place] [address] Dr. Florian Harrison MCHC 33.5 g/dl Normal 29.9-35.2 [facility] Comment on above: Performed By: #### CBCRAYMON #### [facility] [address] [place] [address] Dr. Florian Harrison MCV 99.8 fL Critically high 80.0-94.0 [facility] Comment on above: Performed By: #### CBCRAYMON #### [facility] [address] [place] [address] Dr. Florian Harrison METAMYELOCYTE # Normal [facility] Comment on above: Performed By: #### CBCRAYMON #### [facility] [address] [place] [address] Dr. Florian Harrison METAMYELOCYTE % Normal [facility] Comment on above: Performed By: #### CBCRAYMON #### [facility] [address] [address] [address] Florian Harrison MONOM# 1.67 103/ul Critically high 0.30-0.80 [facility] Comment on above: Performed By: #### CBCRAYMON #### [facility] [address] [address] [address] Florian Harrison MONOM% 18.0 % Critically high 1.7-12.0 [facility] Comment on above: Performed By: #### CBCRAYMON #### [facility] [address] [address] [address] Florian Harrison MPV 9.0 fL Critically low 9.5-13.5 [facility] Comment on above: Performed By: #### CBCRAYMON #### [facility] [address] [place] [address] Dr. Florian Harrison MYELOCYTE # Normal [facility] Comment on above: Performed By: #### CBCRAYMON #### [facility] [address] [address] [address] Florian Harrison MYELOCYTE % Normal [facility] Comment on above: Performed By: #### CBCRAYMON #### [facility] [address] [address] [address] Florian Harrison NRBC Normal [facility] Comment on above: Performed By: #### CBCRAYMON #### [facility] [address] [address] [address] Florian Harrison PLT 214 103/ul Normal 150-450 [facility] Comment on above: Performed By: #### CBCRAYMON #### [facility] [address] [place] [address] Dr. Florian Harrison RBC 4.40 106/ul Critically low 4.70-6.10 [facility] Comment on above: Performed By: #### CBCRAYMON #### [facility] [address] [address] [address] Florian Harrison RDW 13.1 % Normal 11.0-15.0 [facility] Comment on above: Performed By: #### CBCRAYMON #### [facility] [address] [place] [address] Dr. Florian Harrison SEG # 5.58 103/ul Normal 1.40-6.50 The [facility] Comment on above: Performed By: #### CBCMAN #### [facility] [address] [place] [address] Dr. Florian Harrison SEG % 60.0 % Normal 43.0-75.0 [facility] Comment on above: Performed By: #### CBCMAN #### [facility] [address] [place] [address] Dr. Florian Harrison WBC 9.3 103/ul Normal 4.0-11.0 The [facility] Comment on above: Performed By: #### CBCMAN #### [facility] [address] [place] [address] Dr. Florian Harrison PROF 14(COMP METB)on 023 Albumin [Mass/Vol] 4.4 g/dL Normal 3.4-5.0 [facility] Comment on above: Performed By: #### CMP #### [facility] [address] [place] [address] Dr. Florian Harrison Albumin/Globulin [Mass ratio] 1.6 {ratio} Normal [facility] Comment on above: Performed By: #### CMP #### [facility] [address] [place] [address] Dr. Florian Harrison ALP [Catalytic activity/Vol] 59 U/L Normal 46-116 The [facility] Comment on above: Performed By: #### CMP #### [facility] [address] [place] [address] Dr. Florian Harrison ALT [Catalytic activity/Vol] 94 U/L Critically high 16-63 The [facility] Comment on above: Performed By: #### CMP #### [facility] [address] [place] [address] Dr. Florian Harrison Anion gap [Moles/Vol] 17.7 mmol/L Normal [facility] Comment on above: Performed By: #### CMP #### [facility] [address] [place] [address] Dr. Florian Harrison AST [Catalytic activity/Vol] 72 U/L Critically high 15-37 [facility] Comment on above: Performed By: #### CMP #### [facility] [address] [address] [address] Florian Harrison Bilirubin [Mass/Vol] 0.5 mg/dL Normal 0.2-1.0 [facility] Comment on above: Performed By: #### CMP #### [facility] [address] [address] [address] Florian Harrison Calcium [Mass/Vol] 9.5 mg/dL Normal 8.5-10.1 [facility] Comment on above: Performed By: #### CMP #### [facility] [address] [address] [address] Florian Harrison Chloride [Moles/Vol] 102 mmol/L Normal 98-107 [facility] Comment on above: Performed By: #### CMP #### [facility] [address] [address] [address] Florian Harrison CO2 [Moles/Vol] 22.0 mmol/L Normal 21.0-32.0 [facility] Comment on above: Performed By: #### CMP #### [facility] [address] [address] [address] Florian Harrison Creatinine [Mass/Vol] 0.67 mg/dL Critically low 0.70-1.30 [facility] Comment on above: Performed By: #### CMP #### [facility] [address] [address] [address] Florian Harrison EGFR-AF PUERTO RICAN >60 Normal >=60 [facility] Comment on above: Performed By: #### CMP #### [facility] [address] [address] [address] Florian Harrison EGFR-NON AF PUERTO RICAN >60 Normal >=60 [facility] Comment on above: Performed By: #### CMP #### [facility] [address] [address] [address] Florian Harrison Globulin (S) [Mass/Vol] 2.7 g/dL Normal [facility] Comment on above: Performed By: #### CMP #### [facility] [address] [address] [address] Florian Harrison Glucose [Mass/Vol] 89 mg/dL Normal 74-106 [facility] Comment on above: Performed By: #### CMP #### [facility] [address] [address] [address] Florian Harrison Potassium [Moles/Vol] 3.7 mmol/L Normal 3.5-5.1 [facility] Comment on above: Performed By: #### CMP #### [facility] [address] [address] [address] Florian Harrison Protein [Mass/Vol] 7.1 g/dL Normal 6.4-8.2 [facility] Comment on above: Performed By: #### CMP #### [facility] [address] [address] [address] Florian Harrison Sodium [Moles/Vol] 138 mmol/L Normal 136-145 [facility] Comment on above: Performed By: #### CMP #### [facility] [address] [address] [address] Florian Harrison Urea nitrogen [Mass/Vol] 5.0 mg/dL Critically low 7.0-18.0 [facility] Comment on above: Performed By: #### CMP #### [facility] [address] [address] [address] Florian Harrison Urea nitrogen/Creatin ine [Mass ratio] 7.5 mg/mg Normal [facility] Comment on above: Performed By: #### CMP #### [facility] [address] [address] [address] Florian Harrison XR CHEST 1 Von 11-18-2022 XR CHEST 1 V EXAM: XR CHEST 1 V HISTORY: COUGH COMPARISON: None available TECHNIQUE: Single frontal view chest x-ray FINDINGS: No lobar lung consolidation, large pleural effusions, pneumothorax, or acute bony abnormality. Cardiac size is unremarkable. IMPRESSION: No radiographic evidence for acute chest abnormality. Electronically authenticated by: CHRISTAL DOMINGUEZ Date: 2022-11-18 00:35 Normal [facility] Covid-19 PCR (CVDTB)on SARS-CoV-2 (COVID-19) RNA JOHNNY+probe Ql (Unsp spec) Not detected Normal NOT DETECTED The [facility] Comment on above: Result Comment: This test is not yet branden roved or cleared by the [place] FDA. When there are no FDA-approved or cleared tests available, and other criteria are met, FDA can make tests available under an emergency access mechanism called an Emergency Use Authorization (EUA). The EUA for this test is supported by the [employer] of Health and Human Service's (HHS's) declaration [...] SARS-CoV-2. Performed By: #### C VDTBH #### [facility] [address] [address] [address] Florian Harrison INFLUENZA A AND B AGon 07-22 INFLUANEGH SEE BELOW Normal The [facility] Comment on above: Result Comment: Negative for Flu A prote in angiten. Infection due to Flu A cannot be ruled out. Flu A angiten in the sample may be below the detection limit of the test. Performed By: #### I NFLUAB ####[facility] [id number] [address]DrJo Ann Harrison INFLUBNEGH SEE BELOW Normal [facility] Comment on above: Result Comment: Negative for Flu B prote in antigen. Infection due to Flu B cannot be ruled out. Flu B antigen in the sample may be below the detection limit of the test. Performed By: #### I NFLUAB ####[facility] [id number] [address] Florian Harrison INFLUENZA A AG Negative Normal NEGATIVE SEE COMMENT The [facility] Comment on above: Performed By: #### INFLUAB ####[facility] [id number] [address]DrJo Ann Harrison INFLUENZA B AG Negative Normal NEGATIVE SEE COMMENT The [facility] Comment on above: Performed By: #### INFLUAB ####[facility] [address] [place], [place] [address]PdJo Ann Harrison INTERNAL CONTROLS Within Normal Limits Normal Within Normal Limits The [facility] Comment on above: Performed By: #### INFLUAB ####[facility] [id number] [place], [place] [address]VnJo Ann Harrison Rehab Psych Evaluationon Rehab Psych [...] TIME SPENT: 4 hours professional; 2 hours hospital technician (no duplication of services) REASON FOR [...] MRI of the brain was conducted at [facility] on 01/19/2018 and was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
== END 2024-08-17 10:49 | disposition home or self-care (01) ==
LOC: PST 10:49
PROVIDERS: PCP Family Medicine; Visit Provider Surgery
DX: Z01.818 Encounter for other preprocedural examination (principal); K64.4 Residual hemorrhoidal skin tags; K62.89 Other specified diseases of anus and rectum

== ENCOUNTER 2024-08-22 11:36 | Day surgery (SDC) | payer SELFPAY ==
[2024-08-17 11:18] VITALS: BP 128/79; PULSE 91; TEMP 36.4; O2SAT 98; BMI 22.5
[2024-08-22] VITALS (10 sets, daily range): BP systolic 118–145; BP diastolic 72–99; PULSE 86–118; TEMP 36.2–36.7; O2SAT 96–99; BMI 22.9
--- NOTE | 2024-08-22 | OP_ITS ---
OPERATION DATE: 08/22/2024 PREOPERATIVE DIAGNOSIS: Irritated right lateral internal/external skin tag, possible hemorrhoid. POSTOPERATIVE DIAGNOSIS: Irritated right lateral internal/external skin tag, possible hemorrhoid. PROCEDURE: Excision of right lateral ulcerated chronic skin tag, internal/external. SURGEON: Momo Tanner M.D. ANESTHESIA: General endotracheal as well as local with Exparel solution. INDICATIONS AND CONSENT: Patient is a 29-year-old male with long history of rectal bleeding and pain with bowel movements. He does have evidence of irritated ulcerated skin tags, possible internal hemorrhoids. Indications, risks, benefits, alternatives or proceeding with excision of the irritated skin tag, possible hemorrhoidectomy, explained extensively to the patient, including risks of bleeding, infection, scarring, pain, recurrence, need for further surgery, anesthetic complications. All of his questions were answered. Informed consent was obtained. PROCEDURE: Patient brought to the operating room, placed in supine position. General anesthesia was induced. He was then placed in the prone position and appropriately monitored and padded. He was prepped and draped in the usual sterile fashion. Right lateral ulcerated skin tag was identified. A Hill- Malhotra retractor was placed in the rectum and used for retraction. There was no evidence of associated internal hemorrhoid. There was inflammation of the medial portion of the skin tag with ulceration. This was excised using the harmonic scalpel. The mucosal area was closed with a 2-0 Vicryl figure of eight suture. The external part was left open. There was good hemostasis. There were no other significant hemorrhoids, other than a smaller external, non- irritated skin tag on the left lateral area, and there was no other associated hemorrhoids or abnormalities. The anal canal was irrigated. There was good hemostasis. Exparel solution was then infected into the subcutaneous tissue around the area of the excision. A Gelfilm roll was placed in the anal canal with some lubricant. 4 x 4?s and an ABD was placed externally. Patient tolerated procedure well, was flipped back into the supine position, was extubated and sent to recovery room in good condition. ESTIMATED BLOOD LOSS: Less than 2 mL. CC: Serge Umaña M.D. [facility]ENTER[facility]izbet
[2024-08-22] MEDS: LACTATED RINGER'S SOLUTION 1,000 ML 50 ML IV (12:16)
[2024-08-22] MEDS: METRONIDAZOLE/SODIUM CHLORIDE 500 MG/100 ML PREMIX 100 MG IV (15:07)
[2024-08-22] MEDS: BUPIVACAINE HCL 0.25% PF 25 MG/10 ML VIAL INJ (15:40)
[2024-08-22] MEDS: BUPIVACAINE LIPOSOME/PF 266 MG/13.3 ML VIAL INJ (15:40)
[2024-08-22] MEDS: SURGIFOAM GEL SPONGE SIZE 100 1 EACH TOPICAL ×2 (15:40→16:06)
[2024-08-22] MEDS: KETOROLAC TROMETHAMINE 30 MG/ML VIAL IVP (16:12)
== END 2024-08-22 16:52 | disposition home or self-care (01) ==
PROVIDERS: PCP Family Medicine; Visit Provider Surgery
PROC: (CPT 00902; principal; 2024-08-22 12:55)
DX: K64.4 Residual hemorrhoidal skin tags (principal); K62.5 Hemorrhage of anus and rectum; K62.89 Other specified diseases of anus and rectum; K21.9 Gastro-esophageal reflux disease without esophagitis; Z90.49 Acquired absence of other specified parts of digestive tract; F17.210 Nicotine dependence, cigarettes, uncomplicated; J45.909 Unspecified asthma, uncomplicated
CPT/HCPCS: 00902; 46220; 88305; J0665; J1836; J1885; J2250; J2405; J2704; J3010

== ENCOUNTER 2024-12-31 18:21 | Emergency (ER) | payer SELFPAY ==
--- OUTSIDE RECORDS SUMMARY | 2024-12-31 18:31 | XMS_ITS | CCD ---
Author Organization [facility] Care Team Providers Care Board Mill Supervisor Name Role Phone PHYSICIAN, DEFAULT Admitting Unavailable [...] HOY ., DR PECK Primary Care Unavailable DIAB ., CATRACHO Consulting Unavailable Cisco Umaña Primary Care Physician Nill, Momo R Attending Unavailable Nill, Momo R Admitting Unavailable NILL, Momo R Attending Unavailable NILL, Momo R Attending Unavailable NILL, Momo R Attending Unavailable NILL, Momo R Attending Unavailable Allergies Allergy Classification Reported Allergen(s) Allergy Type Date of Onset Reaction(s) Facility (1 source) No Known Medication Allergies; Translations: [No Known Medication Allergies] Propensity to adverse reactions (disorder) [facility] Repository Problems Active Problems Problem Classification Problem Date Documented Date Episodic/Chronic Abdominal pain (4 sources) Generalized abdominal pain; Translations: [Generalized abdominal pain] Onset: 3 Episodic Alcohol-related disorders (3 sources) Continuous chronic alcoholism; Translations: [Alcoholism] Onset: 8 05-13-2023 Chronic Anal and rectal conditions (4 sources) Anorectal disorder; Translations: [Other specified diseases of anus and rectum] Onset: 4 Episodic Anxiety disorders (3 sources) Anxiety Onset: 8 05-13-2023 Chronic Attention-deficit, conduct, and disruptive behavior disorders (3 sources) Attention deficit hyperactivity disorder 05-13-2023 Chronic Biliary tract disease (2 sources) Postcholecystectomy diarrhea 06-14-2023 Episodic 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 (3 sources) Postconcussional syndrome; Translations: [POSTCONCUSSIONAL SYNDROME] Onset: 8 Chronic Esophageal disorders (2 sources) Gastroesophageal reflux disease with hiatal hernia 06-14-2023 Chronic Gastrointestinal hemorrhage (5 sources) Hemorrhage of rectum and anus; Translations: [Hemorrhage of anus and rectum] Onset: 3 Episodic Hemorrhoids (1 source) Residual hemorrhoidal skin tags; Translations: [Residual hemorrhoidal skin tags] Onset: 4 Episodic Nausea and vomiting (4 sources) Nausea and vomiting; Translations: [Nausea with vomiting, unspecified] Onset: 3 Episodic Other gastrointestinal disorders (4 sources) Altered bowel function; Translations: [Change in bowel habit] Onset: 3 Episodic Other liver diseases (3 sources) Steatosis of liver 05-18-2023 Chronic Other lower respiratory disease (1 source) Hemoptysis; Translations: [HEMOPTYSIS] Onset: 3 Episodic Other male genital disorders (3 sources) History of prostatitis 05-13-2023 Episodic Other nervous system disorders (1 source) Chronic pain; Translations: [Other chronic pain] Onset: 3 Chronic Other skin disorders (2 sources) Skin tag 08-08-2024 Episodic Pneumonia (except that [...] UNSPECIFIED] Onset: 07-26-2022 Episodic Residual codes; unclassified (3 sources) Tobacco user Onset: 10-18-2017 05-13-2023 Episodic Unclassified (1 source) COUGH, UNSPECIFIED; Translations: [COUGH, UNSPECIFIED] Onset: 11-18-2022 Unclassified (1 source) CONTACT W/AND (SUSP) EXPOS COVID-19; Translations: [CONTACT W/AND (SUSP) EXPOS COVID-19] Onset: 07-22-2022 Results Test Name Value Interpretation Reference Range Facility General Surgery Office/Clini c Noteon 08-29-2024 General Surgery Office/Clinic Note General Surgery Office/Clinic Note Chief Complaint post operative follow up HPI Staff 7 day post operative follow up post excision anal skin tag. Reports moderate pain, primarily with bowel movements. Taking Tylenol PRN. Verbalized bleeding has improved since surgery. Patient has not completed sitz bath since Tuesday. History of Present Illness 1 week s/p excision right lateral/posterior skin tag/ulcerated prolapsed mucosa; pathology consistent with same; patient with pain primarily with bms, minimal drainage/bleeding; not doing sitz baths any longer; only taking Tylenol. Review of Systems PHQ Score Initial Depression [...] and are negative or noncontributory. Physical Exam rectal: incision healing well, no purulence, no erythema; minimal serous drainage Assessment/Plan 1. Rectal mucous membrane ulceration (K62.6: Ulcer of anus and rectum) doing well; continue sitz baths before and after bms; take ibuprofen scheduled every 8 hours with food; follow up in 1 week, call sooner if problems/questions. 2. Anorectal skin tags (K64.4: Residual hemorrhoidal skin tags) see # 1 Follow-up No qualifying data available Problem List/Past Medical History Ongoing Abdominal pain, chronic, generalized ADHD Alcoholism Anorectal skin tags Anxiety Change in bowel habits Fatty liver Hiatal hernia with GERD and esophagitis History of prostatitis Postcholecystectomy diarrhea Rectal bleeding Rectal mucous membrane ulceration Rectal pain Tobacco user Historical Nausea & vomiting Procedure/Surgical History Excision of anal skin tag (08/22/2024), Colonoscopy (06/01/2023), EGD - Esophagogastroduodenoscopy (06/01/2023), Cholecystectomy, Colonoscopy, EGD - Esophagogastroduodenoscopy. Medications No active medications Allergies No Known Allergies No Known Medication Allergies Social History Alcohol Current. Beer. 1-2 times per week., 08/29/2024 Substance Abuse Current. Marijuana. 1-2 times per week. Previous treatment: None., 08/29/2024 Tobacco 10 or more cigarettes (1/2 pack or more)/day in last 30 days Tobacco Use:., 08/29/2024 Family History Multiple sclerosis: Mother. Immunizations Vaccine Date Status Comments SARS-CoV-2 (COVID-19) mRNA BNT-162b2 vax 10/29/2021 Recorded 2023-05-13: TPVALL SARS-CoV-2 (COVID-19) mRNA BNT-162b2 vax 05/11/2021 Recorded 2023-05-13: TPVALL SARS-CoV-2 (COVID-19) mRNA BNT-162b2 vax 04/20/2021 Recorded 2023-05-13: TPVALL Normal [facility] Comment on above: Result Comment: Electronically Signed By : LEILA HERRERA, Momo Burleson\Date and Time Signed: 08/29/24 21:27 EST Brooks 08-22-2024 L --------- ----- Specimen: [id number] Received: 08/23/24 Status: DEMIYeyo Bran Num: [id number] Spec Type: Surgical Subm Dr: Momo Tanner MD FACS Tissues: A Skin Tag or debridement (RT LATERAL ANAL SKIN TAG) Procedures: HE/Sara, Gross/Micro L3 ----- Age/ Patient Sex Location Account Attending Physician ----- Martin Alvarez Shira 29/M [place] [id number] Momo Tanner MD FACS ----- SPEC NUM: [id number] RECD: 08/23/24 STATUS: MARTINA BRAN NUM: [id number] VINCE: 08/22/24 [facility] DR: Momo Tanner MD FACS ENTERED: 08/23/[address]: Vasiliy,Rogers SPEC TYPE: Surgical DEPT: [facility] C[facility]FT ENTERED BY: [id number] RECV BY: [id number] ORDERED: HE/2, Gross/Micro L3 ORDERED: HE/2, Gross/Micro L3 Pathological Diagnosis Right lateral anus, labeled as skin tag , excision: - 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 Clinical Information Right lateral anal skin tag, rectal pain Gross Description Part A is received in formalin labeled with the patients name, date of , and is a monk-heredia to purple, nodular, polypoid-like portion of skin, 2.5 x 2 x 0.6 cm in thickness. The specimen is inked black, serially sectioned, and entirely submitted in cassette A1?A2. (2, ns, [id number])J Microscopic Description Microscopic examination is performed. CPT Codes 72737 ----- ----- Specimen: [id number] Received: 08/23/24 Status: MARTINA Bran Num: [id number] Spec Type: Surgical Subm Dr: Momo Tanner MD FACS Tissues: A Skin Tag or debridement (RT LATERAL ANAL SKIN TAG) Procedures: HE/2, Gross/Micro L3 ----- Patient: Martin Alvarez [id number] (Continued) ----- Signed (signature on file) Portillo Cortez MD 08/27/24 1152 Normal [facility] Ambulatory Visit Summaryon 10-08-2023 Ambulatory Visit Summary Ambulatory Visit Summary MARTIN ALVAREZ :1995 Visit Date:08/08/2024 Ambulatory Visit Instructions Your Care Team Attending Physician - LEILA HERRERA, Momo Sanders Primary Care Physician - Leeroy HERRERA, Cisco Procedures Performed Colonoscopy (06/01/2023), EGD - Esophagogastroduodenoscopy [...] for choosing us for your care. Normal [facility] CBC AUTO DIFFon 02-03-2023 BASO # 0.1 103/ul Normal 0.0-0.1 [facility] Comment on above: Performed By: #### CBC #### [facility] [address] [place] [address] Dr. Florian Harrison Basophils/100 WBC (Bld) 0.6 % Normal 0.2-2.0 [facility] Comment on above: Performed By: #### CBC #### [facility] [address] [place] [address] Dr. Florian Harrison EO # 0.0 103/ul Normal 0.0-0.7 [facility] Comment on above: Performed By: #### CBC #### [facility] [address] [address] [address] Florian Harrison Eosinophils/100 WBC (Bld) 0.4 % Critically low 0.9-7.0 [facility] Comment on above: Performed By: #### CBC #### [facility] [address] [place] [address] Dr. Florian Harrison Erythrocyte distribution width (RBC) [Ratio] 12.2 % Normal 11.0-15.0 [facility] Comment on above: Performed By: #### CBC #### [facility] [address] [place] [address] Dr. Florian Harrison Hematocrit (Bld) [Volume fraction] 48.5 % Normal 42.0-54.0 [facility] Comment on above: Performed By: #### CBC #### [facility] [address] [place] [address] Dr. Florian Harrison Hemoglobin (Bld) [Mass/Vol] 16.6 g/dL Normal 14.0-18.0 [facility] Comment on above: Performed By: #### CBC #### [facility] [address] [place] [address] Dr. Florian Harrison IG # 0.04 10e3/ul Critically high 0.00-0.03 [facility] Comment on above: Performed By: #### CBC #### [facility] [address] [place] [address] Dr. Florian Harrison IG % 0.4 % Normal 0.0-0.5 [facility] Comment on above: Performed By: #### CBC #### [facility] [address] [place] [address] Dr. Florian Harrison LYMPH # 1.6 103/ul Normal 1.2-3.8 [facility] Comment on above: Performed By: #### CBC #### [facility] [address] [place] [address] Dr. Florian Harrison Lymphocytes/100 WBC (Bld) 14.9 % Critically low 20.5-60.0 [facility] Comment on above: Performed By: #### CBC #### [facility] [address] [place] [address] Dr. Florian Harrison MANUAL DIFF REQ NO Normal [facility] Comment on above: Performed By: #### CBC #### [facility] [address] [place] [address] Dr. Florian Harrison MCH (RBC) [Entitic mass] 33.8 pg Normal 25.9-34.0 [facility] Comment on above: Performed By: #### CBC #### [facility] [address] [place] [address] Dr. Florian Harrison MCHC (RBC) [Mass/Vol] 34.2 g/dL Normal 29.9-35.2 [facility] Comment on above: Performed By: #### CBC #### [facility] [address] [address] [address] Florian Harrison MCV (RBC) [Entitic vol] 98.8 fL Critically high 80.0-94.0 [facility] Comment on above: Performed By: #### CBC #### [facility] [address] [address] [address] Florian Harrison MONO # 2.0 103/ul Critically high 0.3-0.8 [facility] Comment on above: Performed By: #### CBC #### [facility] [address] [place] [address] Dr. Folrian Harrison Monocytes/100 WBC (Bld) 17.9 % Critically high 1.7-12.0 [facility] Comment on above: Performed By: #### CBC #### [facility] [address] [place] [address] Dr. Florian Harrison NEUT # 7.2 103/ul Critically high 1.4-6.5 [facility] Comment on above: Performed By: #### CBC #### [facility] [address] [place] [address] Dr. Florian Harrison Neutrophils/100 WBC (Bld) 65.8 % Normal 43.0-75.0 [facility] Comment on above: Performed By: #### CBC #### [facility] [address] [address] [address] Florian Harrison Platelet mean volume (Bld) [Entitic vol] 9.5 fL Normal 9.5-13.5 [facility] Comment on above: Performed By: #### CBC #### [facility] [address] [place] [address] Dr. Florian Harrison PLT 275 103/ul Normal 150-450 [facility] Comment on above: Performed By: #### CBC #### [facility] [address] [place] [address] Dr. Florian Harrison RBC 4.91 106/ul Normal 4.70-6.10 [facility] Comment on above: Performed By: #### CBC #### [facility] [address] [address] [address] Florian Harrison WBC 10.9 103/ul Normal 4.0-11.0 [facility] Comment on above: Performed By: #### CBC #### [facility] [address] [address] [address] Florian Harrison INFLUENZA A AND B AGon 02-03 INFLUENZA A AG Negative Normal NEGATIVE SEE COMMENT [facility] Comment on above: Performed By: #### INFLUAB #### [facility] [address] [address] [address] Florian Harrison INFLUENZA B AG Negative Normal NEGATIVE SEE COMMENT [facility] Comment on above: Performed By: #### INFLUAB #### [facility] [address] [place] [address] Dr. Florian Harrison LACTATE/LACTIC ACIDon 2022 Lactate [Moles/Vol] 2.6 mmol/L Critically high 0.4-2.0 [facility] Comment on above: Performed By: #### LACT #### [facility] [address] [address] [address] Florian Harrison LIPASEon 02-03-2023 Lipase [Catalytic activity/Vol] 150.0 U/L Normal 73.0-393.0 [facility] Comment on above: Performed By: #### CMP, LIPA #### [facility] [address] [address] [address] Florian Harrison PROF 14(COMP METB)on 023 Albumin [Mass/Vol] 4.7 g/dL Normal 3.4-5.0 [facility] Comment on above: Performed By: #### CMP, LIPA ####[facility] [address] [place], [place] [address]Dr. Florian Harrison Albumin/Globulin [Mass ratio] 1.3 {ratio} Normal [facility] Comment on above: Performed By: #### CMP, LIPA ####[facility] [address] [address]Dr. Florian Harrison ALP [Catalytic activity/Vol] 78 U/L Normal 46-116 [facility] Comment on above: Performed By: #### CMP, LIPA ####[facility] [address] [address]Dr. Florian Harrison ALT [Catalytic activity/Vol] 140 U/L Critically high 16-63 [facility] Comment on above: Performed By: #### CMP, LIPA ####[facility] [address] [address]Dr. Florian Harrison Anion gap [Moles/Vol] 21.0 mmol/L Normal [facility] Comment on above: Performed By: #### CMP, LIPA ####[facility] [address] [place], [place] [address]Dr. Florian Harrison AST [Catalytic activity/Vol] 85 U/L Critically high 15-37 [facility] Comment on above: Performed By: #### CMP, LIPA ####[facility] [address] [place], [place] [address]Dr. Florian Harrison Bilirubin [Mass/Vol] 1.5 mg/dL Critically high 0.2-1.0 [facility] Comment on above: Performed By: #### CMP, LIPA ####[facility] [address] [place], [place] [address]Dr. Florian Harrison Calcium [Mass/Vol] 10.3 mg/dL Critically high 8.5-10.1 [facility] Comment on above: Performed By: #### CMP, LIPA ####[facility] [address] [place], [place] [address]Dr. Florian Harrison Chloride [Moles/Vol] 90 mmol/L Critically low 98-107 [facility] Comment on above: Performed By: #### CMP, LIPA ####[facility] [address] [place], [place] [address]Dr. Florian Harrison CO2 [Moles/Vol] 23.7 mmol/L Normal 21.0-32.0 [facility] Comment on above: Performed By: #### CMP, LIPA ####[facility] [address] [place], [place] [address]Dr. Florian Harrison Creatinine [Mass/Vol] 0.96 mg/dL Normal 0.70-1.30 [facility] Comment on above: Performed By: #### CMP, LIPA ####[facility] [address] [address]Dr. Florian Harrison EGFR-AF CROATIAN >60 Normal >=60 [facility] Comment on above: Performed By: #### CMP, LIPA ####[facility] [address] [address]Dr. Florian Harrison EGFR-NON AF CROATIAN >60 Normal >=60 [facility] Comment on above: Performed By: #### CMP, LIPA ####[facility] [address] [place], [place] [address]Dr. Florian Harrison Globulin (S) [Mass/Vol] 3.6 g/dL Normal [facility] Comment on above: Performed By: #### CMP, LIPA ####[facility] [address] [place], [place] [address]Dr. Florian Harrison Glucose [Mass/Vol] 97 mg/dL Normal 74-106 [facility] Comment on above: Performed By: #### CMP, LIPA ####[facility] [address] [place], [place] [address]Dr. Florian Harrison Potassium [Moles/Vol] 3.7 mmol/L Normal 3.5-5.1 [facility] Comment on above: Performed By: #### CMP, LIPA ####[facility] [address] [address]Dr. Florian Harrison Protein [Mass/Vol] 8.3 g/dL Critically high 6.4-8.2 [facility] Comment on above: Performed By: #### CMP, LIPA ####[facility] [address] [place], [place] [address]Dr. Florian Harrison Sodium [Moles/Vol] 131 mmol/L Critically low 136-145 [facility] Comment on above: Performed By: #### CMP, LIPA ####[facility] [address] [place], [place] [address]TcJo Ann Harrison Urea nitrogen [Mass/Vol] 7.0 mg/dL Normal 7.0-18.0 [facility] Comment on above: Performed By: #### CMP, LIPA ####[facility] [address] [place], [place] [address]JgDr. Florian Harrison Urea nitrogen/Creatin ine [Mass ratio] 7.3 mg/mg Normal [facility] Comment on above: Performed By: #### CMP, LIPA ####[facility] [address] [place], [place] [address]DsDr. Florian Harrison SYMPTOMATIC COVID-19 ANTIGEN on 02-03-2023 EUA Statement SEE BELOW Normal [facility] Comment on above: Result Comment: This [...] sooner. Performed By: #### C VDAGS #### [facility] [address] [address] [address] Florian Harrison SARS-CoV-2 (COVID-19) RNA JOHNNY+probe Ql (Unsp spec) Negative Normal NEGATIVE [facility] Comment on above: Performed By: #### CVDAGS #### [facility] [address] [address] [address] Florian Harrison XR CHEST 1 Von [...] JURGEN GREENE Date: 2023-02-03 01:58 Normal [facility] CBC W MANUAL DIFFon 11-19-19 23 ATYPICAL LYMPH # Normal [facility] Comment on above: Performed By: #### CBCMAN #### [facility] [address] [address] [address] Florian Harrison ATYPICAL LYMPH % Normal [facility] Comment on above: Performed By: #### CBCMAN #### [facility] [address] [address] [address] Florian Harrison BAND # Normal 0.0-0.3 [facility] Comment on above: Performed By: #### CBCMAN #### [facility] [address] [address] [address] Florian Harrison BAND % Normal 0-5 [facility] Comment on above: Performed By: #### CBCMAN #### [facility] [address] [address] [address] Florian Harrison BASOM # 0.00 103/ul Normal 0.00-0.10 [facility] Comment on above: Performed By: #### CBCMAN #### [facility] [address] [address] [address] Florian Harrison BASOM % 0.0 % Critically low 0.2-2.0 [facility] Comment on above: Performed By: #### CBCMAN #### [facility] [address] [address] [address] Florian Harrison BLAST # Normal [facility] Comment on above: Performed By: #### CBCMAN #### [facility] [address] [address] [address] Florian Harrison BLAST % Normal [facility] Comment on above: Performed By: #### CBCMAN #### [facility] [address] [address] [address] Florian Harrison CORRECTED WBC Normal 4.0-11.0 [facility] Comment on above: Performed By: #### CBCRAYMON #### [facility] [address] [address] [address] Florian Harrison EOS # 0.19 103/ul Normal 0.00-0.70 [facility] Comment on above: Performed By: #### CBCRAYMON #### [facility] [address] [place] [address] Dr. Florian Harrison EOS% 2.0 % Normal 0.9-7.0 [facility] Comment on above: Performed By: #### CBCRAYMON #### [facility] [address] [place] [address] Dr. Florian Harrison HCT 43.9 % Normal 42.0-54.0 [facility] Comment on above: Performed By: #### CBCRAYMON #### [facility] [address] [place] [address] Dr. Florian Harrison HGB 14.7 g/dl Normal 14.0-18.0 [facility] Comment on above: Performed By: #### CBCRAYMON #### [facility] [address] [place] [address] Dr. Florian Harrison LYMPHM # 1.86 103/ul Normal 1.20-3.80 [facility] Comment on above: Performed By: #### CBCRAYMON #### [facility] [address] [place] [address] Dr. Florian Harrison LYMPHM% 20.0 % Critically low 20.5-60.0 [facility] Comment on above: Performed By: #### CBCRAYMON #### [facility] [address] [place] [address] Dr. Florian Harrison MCH 33.4 pg Normal 25.9-34.0 [facility] Comment on above: Performed By: #### CBCRAYMON #### [facility] [address] [place] [address] Dr. Florian Harrison MCHC 33.5 g/dl Normal 29.9-35.2 [facility] Comment on above: Performed By: #### CBCRAYMON #### [facility] [address] [place] [address] Dr. Florian Harrison MCV 99.8 fL Critically high 80.0-94.0 [facility] Comment on above: Performed By: #### CBCRAYMON #### [facility] [address] [address] [address] Florian Harrison METAMYELOCYTE # Normal [facility] Comment on above: Performed By: #### CBCRAYMON #### [facility] [address] [address] [address] Florian Harrison METAMYELOCYTE % Normal [facility] Comment on above: Performed By: #### CBCRAYMON #### [facility] [address] [address] [address] Florian Harrison MONOM# 1.67 103/ul Critically high 0.30-0.80 [facility] Comment on above: Performed By: #### CBCRAYMON #### [facility] [address] [place] [address] Dr. Florian Harrison MONOM% 18.0 % Critically high 1.7-12.0 [facility] Comment on above: Performed By: #### BERNADETTE #### [facility] [address] [place] [address] Dr. Florian Harrison MPV 9.0 fL Critically low 9.5-13.5 [facility] Comment on above: Performed By: #### BERNADETTE #### [facility] [address] [place] [address] Dr. Florian Harrison MYELOCYTE # Normal [facility] Comment on above: Performed By: #### CBCRAYMON #### [facility] [address] [place] [address] Dr. Florian Harrison MYELOCYTE % Normal [facility] Comment on above: Performed By: #### CBCRAYMON #### [facility] [address] [place] [address] Dr. Florian Harrison NRBC Normal [facility] Comment on above: Performed By: #### CBCRAYMON #### [facility] [address] [address] [address] Florian Harrison PLT 214 103/ul Normal 150-450 [facility] Comment on above: Performed By: #### CBCMAN #### [facility] [address] [address] [address] Florian Harrison RBC 4.40 106/ul Critically low 4.70-6.10 [facility] Comment on above: Performed By: #### CBCMAN #### [facility] [address] [address] [address] Florian Harrison RDW 13.1 % Normal 11.0-15.0 [facility] Comment on above: Performed By: #### CBCMAN #### [facility] [address] [address] [address] Florian Harrison SEG # 5.58 103/ul Normal 1.40-6.50 [facility] Comment on above: Performed By: #### CBCMAN #### [facility] [address] [place] [address] Dr. Florian Harrison SEG % 60.0 % Normal 43.0-75.0 [facility] Comment on above: Performed By: #### CBCMAN #### [facility] [address] [place] [address] Dr. Florian Harrison WBC 9.3 103/ul Normal 4.0-11.0 [facility] Comment on above: Performed By: #### CBCMAN #### [facility] [address] [place] [address] Dr. Florian Harrison PROF 14(COMP METB)on 023 Albumin [Mass/Vol] 4.4 g/dL Normal 3.4-5.0 [facility] Comment on above: Performed By: #### CMP #### [facility] [address] [place] [address] Dr. Florian Harrison Albumin/Globulin [Mass ratio] 1.6 {ratio} Normal [facility] Comment on above: Performed By: #### CMP #### [facility] [address] [place] [address] Dr. Florian Harrison ALP [Catalytic activity/Vol] 59 U/L Normal 46-116 [facility] Comment on above: Performed By: #### CMP #### [facility] [address] [address] [address] Florian Harrison ALT [Catalytic activity/Vol] 94 U/L Critically high 16-63 [facility] Comment on above: Performed By: #### CMP #### [facility] [address] [place] [address] Dr. Florian Harrison Anion gap [Moles/Vol] 17.7 mmol/L Normal [facility] Comment on above: Performed By: #### CMP #### [facility] [address] [address] [address] Florian Harrison AST [Catalytic activity/Vol] 72 U/L Critically high 15-37 [facility] Comment on above: Performed By: #### CMP #### [facility] [address] [place] [address] Dr. Florian Harrison Bilirubin [Mass/Vol] 0.5 mg/dL Normal 0.2-1.0 [facility] Comment on above: Performed By: #### CMP #### [facility] [address] [place] [address] Dr. Florian Harrison Calcium [Mass/Vol] 9.5 mg/dL Normal 8.5-10.1 [facility] Comment on above: Performed By: #### CMP #### [facility] [address] [place] [address] Dr. Florian Harrison Chloride [Moles/Vol] 102 mmol/L Normal 98-107 [facility] Comment on above: Performed By: #### CMP #### [facility] [address] [place] [address] Dr. Florian Harrison CO2 [Moles/Vol] 22.0 mmol/L Normal 21.0-32.0 [facility] Comment on above: Performed By: #### CMP #### [facility] [address] [place] [address] Dr. Florian Harrison Creatinine [Mass/Vol] 0.67 mg/dL Critically low 0.70-1.30 [facility] Comment on above: Performed By: #### CMP #### [facility] [address] [place] [address] Dr. Florian Harrison EGFR-AF CROATIAN >60 Normal >=60 [facility] Comment on above: Performed By: #### CMP #### [facility] [address] [address] [address] Florian Harrison EGFR-NON AF CROATIAN >60 Normal >=60 [facility] Comment on above: Performed By: #### CMP #### [facility] [address] [address] [address] Florian Harrison Globulin (S) [Mass/Vol] 2.7 g/dL Normal [facility] Comment on above: Performed By: #### CMP #### [facility] [address] [address] [address] Florian Harrison Glucose [Mass/Vol] 89 mg/dL Normal 74-106 [facility] Comment on above: Performed By: #### CMP #### [facility] [address] [place] [address] Dr. Florian Harrison Potassium [Moles/Vol] 3.7 mmol/L Normal 3.5-5.1 [facility] Comment on above: Performed By: #### CMP #### [facility] [address] [place] [address] Dr. Florian Harrison Protein [Mass/Vol] 7.1 g/dL Normal 6.4-8.2 [facility] Comment on above: Performed By: #### CMP #### [facility] [address] [place] [address] Dr. Florian Harrison Sodium [Moles/Vol] 138 mmol/L Normal 136-145 [facility] Comment on above: Performed By: #### CMP #### [facility] [address] [address] [address] Florian Harrison Urea nitrogen [Mass/Vol] 5.0 mg/dL Critically low 7.0-18.0 [facility] Comment on above: Performed By: #### CMP #### [facility] [address] [place] [address] Dr. Florian Harrison Urea nitrogen/Creatin ine [Mass ratio] 7.5 mg/mg Normal [facility] Comment on above: Performed By: #### CMP #### [facility] [address] [address] [address] Florian Harrison XR CHEST 1 Von 11-18-2022 XR CHEST 1 V EXAM: XR CHEST 1 V HISTORY: COUGH COMPARISON: None available TECHNIQUE: Single frontal view chest x-ray FINDINGS: No lobar lung consolidation, large pleural effusions, pneumothorax, or acute bony abnormality. Cardiac size is unremarkable. IMPRESSION: No radiographic evidence for acute chest abnormality. Electronically authenticated by: CHRISTAL DOMINGUEZ Date: 2022-11-18 00:35 Normal [facility] Covid-19 PCR (CVDTBH)on SARS-CoV-2 (COVID-19) RNA JOHNNY+probe Ql (Unsp spec) Not detected Normal NOT DETECTED [facility] Comment on above: Result Comment: This test is not yet branden roved or cleared by the [place] FDA. When there are no FDA-approved or cleared tests available, and other criteria are met, FDA can make tests available under an emergency access mechanism called an Emergency Use Authorization (EUA). The EUA for this test is supported by the [place] of Health and Human Service's (HHS's) declaration [...] SARS-CoV-2. Performed By: #### C VDTBH #### [facility] [id number] Florian Harrison INFLUENZA A AND B AGon 07-22 INFLUANEGH SEE BELOW Normal [facility] Comment on above: Result Comment: Negative for Flu A prote in angiten. Infection due to Flu A cannot be ruled out. Flu A angiten in the sample may be below the detection limit of the test. Performed By: #### I NFLUAB ####[facility] [id number] [place], [place] [id number]. drew Harrison INFLUBNEGH SEE BELOW Normal [facility] Comment on above: Result Comment: Negative for Flu B prote in antigen. Infection due to Flu B cannot be ruled out. Flu B antigen in the sample may be below the detection limit of the test. Performed By: #### I NFLUAB ####[facility] [address] [place], [place] [address]Dr. [facility] INFLUENZA A AG Negative Normal NEGATIVE SEE COMMENT [facility] Comment on above: Performed By: #### INFLUAB ####[facility] [address] [address] [facility] INFLUENZA B AG Negative Normal NEGATIVE SEE COMMENT [facility] Comment on above: Performed By: #### INFLUAB ####[facility] [address] [place], [place] [address]Dr. drew [facility] INTERNAL CONTROLS Within Normal Limits Normal Within Normal Limits [facility] Comment on above: Performed By: #### INFLUAB ####[facility] [address] [place], [place] [address]Dr. 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 Alvarez notes he was born in [place], [place] and currently resides in [place], [place] with his girlfriend, and multiple members [...] Mr. Alvarez reports he struggled substantially in [place] classes and notes he participated in speech therapy for approximately two years, noting I had a hard time forming words. Ms. Alvarez reports Mr. Alvarez repeated the first grade as he was not ready for school. VOCATIONAL HISTORY: Mr. 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 Mr. Alvarez was also administered a reading [...] estimated IQ in the high average range (SCXX=574), consistent with predicted intellectual abilities suggesting no [...] If you have any questions, please call [phone]. DICTATED BY: Ramsey Alejandra, PhD Neuropsychology Fellow REVIEWED BY: Electronically Signed by: Mariana Aguirre, PhD, ABPP 08/02/2018 08:57 A _ Mariana Aguirer PhD, ABPP Board Certified Clinical Neuropsychologist Date Dict: 07/20/2018/11:36 A/Ramsey Alejandra, PhD Date Trans: 07/20/2018 12:47 P/sarah [id number] cc: Mariana Aguirre, PhD, ABPP [address] [facility] [address] Cheo Cavazos D[address] [place] [address] *Mr. Martin Alvarez [facility] [address] [address] Normal [facility] Vital Signs Date Time Vital Sign Value Performing Clinician Jan sams 08-08-2024 15:06-0500 Blood Pressure Location Momo NILL [facility] [place] 08-08-2024 15:06-0500 Diastolic blood pressure 72 mm[Hg] Momo NILL [facility] [place] 08-08-2024 15:06-0500 Heart rate 72 /min Momo NILL [facility] [place] 08-08-2024 15:06-0500 Respiratory rate 16 /min Momo NILL [facility] [place] 08-08-2024 15:06-0500 Systolic blood pressure 118 mm[Hg] Momo NILL [facility] [place] 05-18-2023 15:44-0400 Blood Pressure Location Momo NILL [facility] 05-18-2023 15:44-0400 Diastolic blood pressure 82 mm[Hg] Momo NILL [facility] [place] 05-18-2023 15:44-0400 Heart rate 74 /min Momo NILL [facility] [place] 05-18-2023 15:44-0400 Respiratory rate 16 /min Momo NILL [facility] [place] 05-18-2023 15:44-0400 Systolic blood pressure 144 mm[Hg] Momo NILL [facility] [place] Encounters Encounter Date Encounter Type Care Provider Facility Start: 09-05-2024 End: 09-05-2024 ambulatory Momo R NILL Facility:[facility] Start: 09-05-2024 End: 09-05-2024 Patient encounter procedure Momo R NILL [facility] [place] Start: 08-29-2024 End: 08-29-2024 ambulatory Momo R NILL Facility:[facility] Start: 08-22-2024 End: 08-22-2024 ambulatory Momo R Nill Facility:[facility] Start: 08-22-2024 End: 08-22-2024 ambulatory Momo R NILL Facility:CD:[id number] Start: 08-08-2024 End: 08-08-2024 ambulatory Momo R NILL Facility: [facility] Start: 08-08-2024 End: 08-08-2024 Patient encounter procedure [facility]o R NILL [facility] [place] Start: 05-18-2023 End: 05-18-2023 Patient encounter procedure Momo R NILL [facility] Start: 02-03-2023 End: 02-03-[address] ARLENE CORMIER . Facility: Start: 11-18-2022 End: 11-18-2022 ambulatory CHRISTAL DOMINGUEZ Facility: Start: 07-22-2022 End: 07-22-[address] CISCO UMAÑA . Facility: Start: 02-12-[address] CISCO UMAÑA . Facili ty: Start: 07-20-2018 End: 08-19-2018 Patient encounter procedure CHEO CAVAZOS Facility:[facility] Start: 07-19-2018 End: 07-20-2018 Patient encounter procedure CHEO CAVAZOS Facility:[facility] Start: 05-03-2018 End: 05-04-2018 Patient encounter procedure DEFAULT PHYSICIAN Facility:[facility] Procedures Date Procedure Procedure Detail Performing Clinician Start: 08-22-2024 Excision of anal skin tag Momo NILL Start: 06-01-2023 Colonoscopy Momo NI LL Start: 06-01-2023 Esophagogastroduodenoscopy Momo NILL Cholecystectomy Momo NILL Colonoscopy Momo NILL Esophagogastroduodenoscopy M ichjavi NILL Immunizations Immunization Date Immunization Notes Care Provider Fa cili 10-29-2021 SARS-CoV-2 (COVID-19 ) mRNA BNT-162b2 lilliam [facility] Comment on above: Result Comment: 2022: TPVALL 05-11-2021 SARS-CoV-2 (COVID-19 ) mRNA BNT-162b2 lilliam [facility] Comment on above: Result Comment: 2022: TPVALL 04-20-2021 SARS-CoV-2 (COVID-19 ) mRNA BNT-162b2 lilliam [facility] Comment on above: Result Comment: 2022: TPVALL Payers Date Payer Category Payer Unknown [id number] 1995 Unknown [id number] 2.16.8 [id number] 1994 Unknown [id number] 2.16.8 [id number] 1994 Unknown [id number] 2.16.8 [id number] 1994 Unknown [id number] 2.16.84 [id number] 1994 Unknown [id number] 2.16.84 [id number] 1994 Unknown [id number] 2.16.84 [id number] 1994 Unknown [id number] 2.16.84 [id number] 1994 Unknown [id number] 2.16.8 [id number] 1994 Unknown [id number] 2.16.8 [id number] 1994 Unknown [id number] 2.16.8 [id number] 1994 Unknown [id number] 2.16.8 [id number] 1959 Self-pay [id number] 1960 Self-pay Unknown Social History Date Type Detail Facility Start: 05-18-2023 End: 08-29-2024 Tobacco smoking status Heavy tobacco smoker (finding) [facility] Tobacco smoking status Former sm okeless tobacco user, quit more than 30 days ago [facility] [place] Sex Assigned At Male [facility] Functional Status Date Assessment Result Facility 08-08-2024 Functional Status N/A [facility] [place] 05-18-2023 Functional Status N/A [facility] Clinical Note 08-08-2024 Note Date & [...] Daily, # 30 EA, Refills(s) 3, Pharmacy: [facility][id number], 175.2, cm, 05/18/23 15:50:00 EDT, Height/Length Dosing, [...] smokeless tobacco user, (more content not included)... [facility] Comment on above: Result Comment: Elec tronically Signed By: LEILA HERRERA, Momo Akins.josephine\Date and Time Signed: 08/08/24 16:50 EST Evaluation + Plan note Note Date & Type Note Facility Evaluation + Plan note No data available for this section [facility] [place] [facility] Discharge instructions Note Date & Type Note Facility Hospital Discharge instructions No data available for this section [facility] [place] Progress note Note Date & Type Note Facility Progress note No data available for this section [facility] Summary Purpose Family History No Family History Records FoundNo Family History Records Found No data available for this section No Family History Records Found No data available for this section No Family History Records FoundNo Family History Records Found Advance Directives No Advanced Directives Records FoundNo Advanced Directives Records FoundNo Advanced Directives Records FoundNo Advanced Directives Records FoundNo Advanced Directives Records Found Additional Source Comments (unrecognized sect ion and content) No Status Records FoundNo Status Records FoundNo Status Records FoundNo Status Records FoundNo Status Records Found INFORMATION SOURCE (unrecogn ized section and content) DATE CREATED AUTHOR 11/07/2018 [facility] DATE CREATED AUTHOR AUTHOR'S ORGANIZ ATION 02/03/2023 [facility] DATE CREATED AUTHOR AUTHOR'S ORGANIZ ATION 08/30/2024 [facility] DATE CREATED AUTHOR AUTHOR'S ORGANIZ ATION 09/12/2024 [facility] DATE CREATED AUTHOR AUTHOR'S ORGANIZ ATION 09/18/2024 [facility] Patient Care team informatio n (unrecognized section and content) Personnel Name: Cisco Umaña MD Address: Address: [address] [place] [address] Personnel Name: Cisco Umaña MD Address: Address: [address] [place] [address] Personnel Name: Cisco Umaña MD Address: Address: [address] [place] [address] FOR RECORDS PERTAINING TO PATIENTS WHO ARE [...] BE BASED ON THE PRIMARY CLINICAL RECORDS. [facility] [employer] [facility] provides no warranty or guarantee of the accuracy or completeness of information in this document.
[2024-12-31 19:06] VITALS: BP 131/87; PULSE 88; TEMP 36.9; O2SAT 97; BMI 23.0
--- NOTE | 2024-12-31 19:16 | ED_ITS ---
HPI HPI - General Adult General Chief complaint: Urogenital-Male Stated complaint: swollen testes Time Seen by Provider: 12/31/24 19:13 Source: patient Mode of arrival: walk-in Limitations: no limitations History of Present Illness HPI narrative: patient presents complaining of swollen right testes since yesterday. Mild abdominal pain. No nausea or vomiting or fever. mild discomfort with urination. Related Data Home Medications ?Medication ?Instructions ?Recorded ?Confirmed acetaminophen 325 mg tablet (Pain 325 mg PO Q6H PRN pain 08/17/24 12/31/24 Relief (acetaminophen)) bismuth subsalicylate 262 mg/15 mL 524 mg PO Q30M PRN diarrhea 08/17/24 12/31/24 oral suspension (Anti-Diarrheal) Allergies Allergy/AdvReac Type Severity Reaction Status Date / Time No Known Drug Allergies Allergy Verified 12/31/24 19:10 Opioid HPI Opioid Management Most Recent Opioid Data: Last Pain Scale 2 08/22/24 16:52 08/22/24 Last ORT Total Score 6 01/09/24 21:17 01/09/24 Last ORT Risk Category Moderate Risk 01/09/24 21:17 01/09/24 Ur Phencyclidine Scrn Negative (NEGATIVE) 04/02/24 17:33 03/19 02/09 Review of Systems ROS Status of ROS 10 or more systems reviewed and unremark able except as noted in history and below [facility] Medical History (Updated 12/31/24 @ 21:46 by Steven Padilla MD) 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 - Salmonella enteritis (ICD-10) Colitis ?K52.9 - Noninfective gastroenteritis and colitis, unspecified (ICD-10) Acute proctitis ?K62.89 - Other specified diseases of anus and rectum (ICD-10) Chronic cough ?R05.3 - Chronic cough (ICD-10) Nausea & vomiting ?R11.2 - Nausea with vomiting, unspecified (ICD-10) Prostatitis ?N41.9 - Inflammatory disease of prostate, unspecified (ICD-10) Fatty liver ?K76.0 - Fatty (change of) liver, not elsewhere classified (ICD-10) Chronic alcoholism ?F10.20 - Alcohol dependence, uncomplicated (ICD-10) Anxiety ?F41.9 - Anxiety disorder, unspecified (ICD-10) ADHD ?F90.9 - Attention-deficit hyperactivity disorder, unspecified type (ICD-10) Abdominal pain ?R10.9 - Unspecified abdominal pain (ICD-10) Diverticulosis ?K57.90 - Diverticulosis of intestine, part unspecified, without perforation or abscess without bleeding (ICD-10) 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 - Intussusception (ICD-10) GI bleeding ?K92.2 - Gastrointestinal hemorrhage, unspecified (ICD-10) Surgical History (Updated 04/14/23 @ 08:24 by Fatimah Garrido) H/O esophagogastroduodenoscopy ?Z98.890 - Other specified postprocedural states (ICD-10) H/O colonoscopy ?Z98.890 - Other specified postprocedural states (ICD-10) Hx of cholecystectomy ?Z90.49 - Acquired absence of other specified parts of digestive tract (ICD- 10) Family History (Updated 08/17/24 @ 11:21 by Mirian Hinson) Other Family history of COPD (chronic obstructive pulmonary disease) Family history of MS (multiple sclerosis) Family history of Parkinson disease Family history of diabetes mellitus Family history of emphysema Family history of heart disease Family history of hypertension Family history of myocardial infarction Family history of renal failure Family history of stroke Multiple sclerosis Social History (Updated 08/17/24 @ 11:18 by Mirian Hinson) Within the past year, how often did you have a drink containing alcohol: 4 or more times a week Within the past year, how many standard drinks containing alcohol did you have on a typical day: 3 or 4 Within the past year, how often did you have six or more drinks on one occasion: less than monthly Total score: 3 Score interpretation: A score of 4 or more indicates drinking is likely to affect patient's safety. Smoking status: Heavy tobacco smoker Do you use any of these nicotine containing products: smokeless tobacco Non-prescribed substance use: cannabis (any form) Non-prescribed substance use details: smoke THC Previous occupational history: [employer] Highest level of school completed/degree received: 11th grade Are you now , , , , never or living with a partner: living with partner Little interest or pleasure in doing things: not at all Feeling down, depressed, or hopeless: not at all Exam Constitutional Vital Signs, click to edit/add: Last Vital Signs Temp 98.5 F 12/31/24 19:06 Pulse 87 12/31/24 22:50 Resp 18 12/31/24 22:50 BP 131/87 12/31/24 19:06 Pulse Ox 98 12/31/24 22:50 O2 Del Method Room Air 12/31/24 22:50 Common normals: no apparent distress, average body habitus, oriented x3, no limitations, healthy appearing, alert and well nourished [facility] Common normals: normocephalic and head/scalp atraumatic Eye Common normals: EOMs intact bilaterally Respiratory Common normals: normal respiratory effort, no retractions, no use of accessory muscles and clear to auscultation bilaterally Cardio Common normals: regular rate, regular rhythm, S1 normal heart sound and S2 normal heart sound GI Common normals: Normal to inspection, nondistended, normoactive bowel sounds present, soft to palpation and non-tender Other: right testes swollen. Not discolored or tender Extremity Common normals: normal to inspection and full ROM Neuro Common normals: oriented x3, CN's II-XII intact bilaterally, moves all extremities and no focal motor deficits Psych Appearance: grossly normal Course Course Hospital Course: I did not participate in the care of this patient. Vital Signs Vital signs: Vital Signs Temperature 98.5 F 12/31/24 19:06 Pulse Rate 88 12/31/24 19:06 Respiratory Rate 18 12/31/24 19:06 Blood Pressure 131/87 12/31/24 19:06 Pulse Oximetry 97 12/31/24 19:06 Oxygen Delivery Method Room Air 12/31/24 19:06 Temperature 98.5 F 12/31/24 19:06 Pulse Rate 87 12/31/24 22:50 Respiratory Rate 18 12/31/24 22:50 Blood Pressure 131/87 12/31/24 19:06 Pulse Oximetry 98 12/31/24 22:50 Oxygen Delivery Method Room Air 12/31/24 22:50 Medical Decision Making MDM Narrative Medical decision making narrative: patient presents complaining of first noticing swelling of his right testes yesterday. No significant pain. sl. discomfort with urination. Exam with enlargement of the right testes c/w hydrocele. US ordered as well as UA UA unremarkable and US confirms right hydrocele. Patient discharged to follow up with Urology Lab Data Labs: Lab Results 12/31/24 Range/Units 20:30 Urine Color Lt. yellow (YELLOW) Urine Clarity Clear (CLEAR) Urine pH 6.0 (5.0-9.0) Ur Specific [place] <=1.005 A (1.005-1.025) Urine Protein Negative (NEG/TRACE) mg/dL Urine Glucose (UA) Negative (NEGATIVE) mg/dL Urine Ketones Negative (NEGATIVE) mg/dL Urine Occult Blood Negative (NEGATIVE) Urine Nitrite Negative (NEGATIVE) Urine Bilirubin Negative (NEGATIVE) Urine Urobilinogen 0.2 (0.2-1.0) EU/dL Ur Leukocyte Esterase Negative (NEGATIVE) Urine RBC None seen (0-2) #/HPF Urine WBC None seen (NONE SEEN) #/HPF Ur Squamous Epith Cells None seen (NONE/RARE) #/LPF Urine Crystals None seen (None Seen) #/HPF Urine Bacteria None seen (NONE SEEN) #/HPF Urine Casts None seen (NONE SEEN) #/LPF Urine Mucus None seen (NONE SEEN) Ur Culture Indicated? No Discharge Plan Discharge Chief Complaint: Urogenital-Male Clinical Impression: Hydrocele in adult Patient Disposition: Home, Self-Care Prescriptions / Home Meds: No Action acetaminophen [Pain Relief (acetaminophen)] 325 mg tablet 325 mg PO Q6H PRN (Reason: pain) bismuth subsalicylate [Anti-Diarrheal] 262 mg/15 mL suspension 524 mg PO Q30M PRN (Reason: diarrhea) Rx Instructions: do not exceed 8 doses in a 24 hour period Print Language: Nigerian Instructions: Hydrocelectomy (DC) Additional Instructions: follow up with Urology for management Referrals: Serge Umaña MD [Primary Care Provider] - 1 week Discharge Date/Time: 12/31/24 23:02
[2024-12-31 20:34] LABS: Bilirubin Urine NEGATIVE (NEGATIVE); Blood Urine NEGATIVE (NEGATIVE); Clarity Urine CLEAR (CLEAR); Color Urine LT. YELLOW (YELLOW); Glucose Urine UA NEGATIVE (NEGATIVE); Ketones Urine NEGATIVE (NEGATIVE); Leukocyte Esterase Urine NEGATIVE (NEGATIVE); Nitrite Urine NEGATIVE (NEGATIVE); Protein Urine NEGATIVE (NEG/TRACE); Specific Gravity Urine <=1.005 (1.005-1.025); Urobilinogen Urine 0.2 EU/dL (0.2-1.0)
[2024-12-31 20:43] LABS: Bacteria Urine NONE SEEN #/HPF (NONE SEEN); Cast Seen? NONE SEEN #/LPF (NONE SEEN); Crystals Seen? None Seen #/HPF (None Seen); Mucus Urine NONE SEEN (NONE SEEN); RBC Urine NONE SEEN #/HPF (0-2); Squamous Epithelial Cell Urine NONE SEEN #/LPF (NONE/RARE); Urine Culture Indicated NO; WBC Urine NONE SEEN #/HPF (NONE SEEN)
[2024-12-31 22:50] VITALS: PULSE 87; O2SAT 98
== END 2024-12-31 23:02 | disposition home or self-care (01) ==
PROVIDERS: Emergency Provider Internal Medicine; PCP Family Medicine
DX: N43.3 Hydrocele, unspecified (principal); Z90.49 Acquired absence of other specified parts of digestive tract; F17.290 Nicotine dependence, other tobacco product, uncomplicated
CPT/HCPCS: 76870; 81001; 99284

== ENCOUNTER 2025-08-05 17:20 | Outpatient (OUT) | payer SELFPAY ==
--- OUTSIDE RECORDS SUMMARY | 2025-08-05 17:29 | XMS_ITS | CCD ---
Author Organization [facility] Care Team Providers Care Change Number Operator Name Role Phone PHYSICIAN, DEFAULT Admitting [...] Consulting Unavailable Cisco Umaña Primary Care Physician [phone] Jeanl, Momo R Attending Unavailable Nill, Momo R Admitting Unavailable NILL, Momo R Attending Unavailable NILL, Momo R Attending Unavailable NILL, Momo R Attending Unavailable NILL, Momo R Attending Unavailable Allergies Allergy ClassificationReported Allergen(s)Allergy TypeDate of OnsetReaction(s) Facility (1 source)No Known Medication Allergies; Translations: [No Known Medication Allergies]Propensity to adverse reactions (disorder)[facility] Repository Problems Active Problems Problem ClassificationProblemDateDocumented DateEpisodic/ChronicAbdominal pain (4 sources)Generalized abdominal pain; Translations: [Generalized abdominal pain]Onset: 54-91-4659CnmpbpgkWhyrgve-related disorders (3 sources)Continuous chronic alcoholism; Translations: [Alcoholism]Onset: 336233-89-5404JkwxdfsElzp and rectal conditions (4 sources)Anorectal disorder; Translations: [Other specified diseases of anus and rectum]Onset: 02-34-8821GxalllnzUgmhziz disorders (3 sources)AnxietyOnset: 040997-27-2868VnthrfzUwjndzmje-nvzgrla, conduct, and disruptive behavior disorders (3 sources)Attention deficit hyperactivity jrhajdnx41-87-0086CyfwzoiMjmgice tract disease (2 sources)Postcholecystectomy nrdxmcwy88-78-7854RdwngudhZberiebi dementia and amnestic and other cognitive disorders (3 sources)Postconcussional syndrome; Translations: [POSTCONCUSSIONAL SYNDROME] Onset: 56-96-1320ObftryrXuauvfoifo disorders (2 sources)Gastroesophageal reflux disease with hiatal lswzwy19-58-0850Qapqlao Gastrointestinal hemorrhage (5 sources)Hemorrhage of rectum and anus; Translations: [Hemorrhage of anus and rectum]Onset: 69-67-0992BexjequmLboxoildpzu (1 source)Residual hemorrhoidal skin tags; Translations: [Residual hemorrhoidal skin tags]Onset: 88-59-0646XfzlxkufJgsnsp and vomiting (4 sources)Nausea and vomiting; Translations: [Nausea with vomiting, unspecified]Onset: 67-90-7103AknahloqFrcpl gastrointestinal disorders (4 sources)Altered bowel function; Translations: [Change in bowel habit]Onset: 32-94-2195UnhslvlsRhnuy liver diseases (3 sources)Steatosis of -61-1687ClwnkplEyhlj lower respiratory disease (1 source)Hemoptysis; Translations: [HEMOPTYSIS]Onset: 14-70-9659KmzhtwibKhxuz male genital disorders (3 sources)History of gereocjcyoy01-31-0056CokzlfwnCoihh nervous system disorders (1 source)Chronic pain; Translations: [Other chronic pain]Onset: 05-18-2023 ChronicOther skin disorders (2 sources)Skin qdz70-63-3214FmbtovfuRufmggbcd (except that caused by tuberculosis or sexually transmitted disease) (1 source)Pneumonia, unspecified organism; Translations: [PNEUMONIA UNSPECIFIED ORGANISM]Onset: 52-99-1529TrolsrjkOdgisshw codes; unclassified (1 source)Acquired absence of other specified parts of digestive tract; Translations: [ACQ ABSENCE OTH PART DIGESTV TRACT]Onset: 03-39-4186Xqvuncwp Substance-related disorders (1 source)Nicotine dependence, cigarettes, uncomplicated; Translations: [NICOTINE DEPEND CIGARETTES UNCOMP]Onset: 36-56-9911YleoodlZbwgmwecycxa (2 sources)DXOnset: 43-58-8226Npvoxxwuvhiw (2 sources)COUGH, UNSPECIFIED; Translations: [COUGH, UNSPECIFIED]Onset: 17-34-2988Wzqooygvedxm (3 sources)CONTACT W/AND (SUSP) EXPOS COVID-19; Translations: [CONTACT W/AND (SUSP) EXPOS COVID-19]Onset: 12-72-8578Pplzrgfyzesy (1 source)Body mass index 20-24 - awoqnb67-81-8783 Past or Other Problems Problem ClassificationProblemDateDocumented DateEpisodic/ChronicAcute bronchitis (1 source)Acute bronchitis, unspecified; Translations: [ACUTE BRONCHITIS UNSPECIFIED]Onset: 43-51-3777RoefdmpkAiyjrzre codes; unclassified (3 sources)Tobacco userOnset: 914045-56-3118FtsshtacDfbllvodmsld (1 source)COUGH, UNSPECIFIED; Translations: [COUGH, UNSPECIFIED]Onset: 25-76-7648Wklxmormctbe (1 source)CONTACT W/AND (SUSP) EXPOS COVID-19; Translations: [CONTACT W/AND (SUSP) EXPOS COVID-19]Onset: 07-22-2022 Results Test NameValueInterpretationReference RangeFacilityGeneral Surgery Office/Clinic Noteon 38-61-1039Fwqlmxs Surgery Office/Clinic NoteGeneral Surgery Office/Clinic Note Chief Complaint post operative [...] swallowing difficulties, no hearing loss, no ear infection(s),no nose bleeds. Cardiovascular: normal blood pressure, no [...] mRNA BNT-162b2 vax 04/20/2021 Recorded 2023-05-13: TPVALL [facility] HospitalComment on above:Result Comment: Electronically Signed By: LEILA HERRERA, Momo Burleson\Date and Time Signed: 08/29/24 21:27 Criselda 08-22-2024L Specimen: [id number] Received: 08/23/24-1410 Status: MARTINA Bran Num: [id number] Spec Type: Surgical Subm Dr: Momo Tanner MD FACS Tissues: A Skin Tag or debridement (RT LATERAL ANAL SKIN TAG) Procedures: HE/2, Gross/Micro L3 Age/ Patient Sex Location Account Attending Physician Martin Alvarez 29/M [facility] [id number] Momo Tanner MD FACS SPEC NUM: [id number] RECD: 08/23/24 STATUS: MARTINA BRAN NUM: [id number] VINCE: 08/22/[address] [facility] [address]: Momo Tanner MD FACS ENTERED: 08/23/24 [facility] DR: Vasiliy,Lab SPEC TYPE: Surgical DEPT: BERNARD CRAFT ENTERED BY: [id number] RECV BY: [id number] ORDERED: HE/2, Gross/Micro L3 ORDERED: HE/2, Gross/Micro [...] entirely submitted in cassette A1?A2. (2, ns, [id number] A) Microscopic Description Microscopic examination is performed. CPT Codes 69416 Specimen: [id number] Received: 08/23/24 Status: MARTINA Puentessamantha Num: [id number] Spec Type: Surgical Subm Dr: Momo Tanner MD FACS Tissues: A Skin Tag or debridement (RT LATERAL ANAL SKIN TAG) Procedures: Anatoliy CHEN/Josué L3 Patient: Martin Alvarez [id number] (Continued) Signed (signature on file) Portillo Cortez MD 08/27/24 1152Normal [facility] Physician GroupAmbulatory Visit Summaryon 85-01-3513Hsrpcdljfu Visit SummaryAmbulatory Visit Summary MARTIN ALVAREZ :1995 Visit Date:08/08/2024 [...] you for choosing us for your care. [facility] HospitalCB AUTO DIFFon [id number] # 0.1 103/ulNormal0.0-0.1The [facility] HospitalComment on above:Performed By: #### CBC #### [facility] [address] [address] [address] Florian Rosesophils/100 WBC (Bld)0.6 %Normal0.2-2.0[facility] Comment on above:Performed By: #### CBC #### [facility] [address] [address] [address] Florian Patino #0.0 103/ulNormal0.0-0.7The [facility] HospitalComment on above: Performed By: #### CBC #### [facility] [address] [address] [address] Florian Ceronosinophils/100 WBC (Bld)0.4 %Critically low0.9-7.0The [facility] HospitalComment on above:Performed By: #### CBC #### [facility] [address] [place] [address] Dr. Florian Ceronrythrocyte distribution width (RBC) [Ratio]12.2 %Btasgg42.0-15.0 The [facility] HospitalComment on above:Performed By: #### CBC #### [facility] [address] [place] [address] Dr. Florian HarrisonHematocrit (Bld) [Volume fraction]48.5 %Klqoue01.0-54.0The [facility] HospitalComment on above:Performed By: #### CBC #### [facility] [address] [place] [address] Dr. Florian HarrisonHemoglobin (Bld) [Mass/Vol]16.6 g/iPGyvjhx16.0-18.0The [facility] HospitalComment on above:Performed By: #### CBC #### [facility] [address] [place] [address] Dr. Florian Calero #0.04 10e3/ulCritically high0.00-0.03The [facility] Comment on above:Performed By: #### CBC #### [facility] [address] [place] [address] Dr. Florian Calero %0.4 %Normal0.0-0.5The [facility] HospitalComment on above: Performed By: #### CBC #### [facility] [address] [place] [address] Dr. Florian ReeseH #1.6 103/ulNormal1.2-3.8The [facility] HospitalComment on above:Performed By: #### CBC #### [facility] [address] [place] [address] Dr. Florian Bernalmphocytes/100 WBC (Bld)14.9 %Critically low20.5-60.0The [facility] HospitalComment on above:Performed By: #### CBC #### [facility] [address] [place] [address] Dr. Florian Tabares DIFF REQNONormalThe [facility] HospitalComment on above: Performed By: #### CBC #### [facility] [address] [place] [address] Dr. Florian Hummel (RBC) [Entitic mass]33.8 zgQpkgtn39.9-34.0The [facility] HospitalComment on above:Performed By: #### CBC #### [facility] [address] [place] [address] Dr. Florian Hummel (RBC) [Mass/Vol]34.2 g/cFSsiols66.9-35.2The [facility] HospitalComment on above:Performed By: #### CBC #### [facility] [address] [place] [address] Dr. Florian Cole (RBC) [Entitic vol]98.8 fLCritically high80.0-94.0The [facility] HospitalComment on above:Performed By: #### CBC #### [facility] [address] [place] [address] Dr. Florian Kan #2.0 103/ulCritically high0.3-0.8The [facility] Comment on above:Performed By: #### CBC #### [facility] [address] [place] [address] Dr. Florian Christensenocytes/100 WBC (Bld)17.9 %Critically high1.7-12.0The [facility] HospitalComment on above:Performed By: #### CBC #### [facility] [address] [place] [address] Dr. Florian Paul #7.2 103/ulCritically high1.4-6.5The [facility] Comment on above:Performed By: #### CBC #### [facility] [address] [place] [address] Dr. Florian Wenophils/100 WBC (Bld)65.8 %Ybweuw76.0-75.0The [facility] HospitalComment on above:Performed By: #### CBC #### [facility] [address] [place] [address] Dr. Florian Bell mean volume (Bld) [Entitic vol]9.5 fLNormal9.5-13.5The [facility] HospitalComment on above:Performed By: #### CBC #### [facility] [address] [place] [address] Dr. Florian HarrisonPLT275 103/sgYclvpp784-601Lhq [facility] HospitalComment on above: Performed By: #### CBC #### [facility] [address] [place] [address] Dr. Florian HarrisonRBC4.91 106/ulNormal4.70-6.10The [facility] HospitalComment on above:Performed By: #### CBC #### [facility] [address] [place] [address] Dr. Florian HarrisonWBC10.9 103/ulNormal4.0-11.0The [facility] HospitalComment on above:Performed By: #### CBC #### [facility] [address] [place] [address] Dr. Florian Tan A AND B AGon 61-15-0406ELOEFHRCX A AGNegativeNormal NEGATIVE SEE COMMENTThe [facility] on above:Performed By: #### INFLUAB #### [facility] [address] [place] [address] Dr. Florian Krishna AGNegativeNormalNEGATIVE SEE COMMENTThe [facility] HospitalCom[facility] on above:Performed By: #### INFLUAB #### [facility] [address] [place] [address] Dr. Florian HarrisonLACTATE/LACTIC ACIDon 81-51-4690Pzbcgvh [Moles/Vol]2.6 mmol/L Critically high0.4-2.0The [facility] on above:Performed By: #### LACT #### [facility] [address] [place] [address] Dr. Florian HarrisonLIPASEon 70-23-3920Kmonjo [Catalytic activity/Vol]150.0 U/LNormal 73.0-393.0The [facility] HospitalComment on above:Performed By: #### CMP, LIPA #### [facility] [address] [address] [address] Florian PerezF 14(COMP METB)on 32-50-8337Mfvjows [Mass/Vol]4.7 g/dLNormal 3.4-5.0[facility] HospitalComment on above:Performed By: #### CMP, LIPA ####[facility] [address] [address]Dr. Florian ChangAlbumin/Globulin [Mass ratio]1.3 {ratio}NormalPromedica [facility]oria [facility] Comment on above:Performed By: #### CMP, LIPA ####[facility] [address] [address]Dr. Florian HarrisonALP [Catalytic activity/Vol]78 U/YZqxtvm71-703Yzy [facility] Centerment on above:Performed By: #### CMP, LIPA ####[facility] [address] [address]Dr. Florian ChangALT [Catalytic activity/Vol]140 U/L Critically jamy87-47Moj [facility] HospitalComment on above:Performed By: #### CMP, LIPA ####[facility] [address] [address]Dr. Florian HarrisonAnion gap [Moles/Vol]21.0 mmol/LNormalPromedica [facility] Comment on above:Performed By: #### CMP, LIPA ####[facility] [address] [address]Dr. Florian ChangAST [Catalytic activity/Vol]85 U/LCritically ntbq69-81Qqi [facility] HospitalComment on above: Performed By: #### CMP, LIPA ####[facility] [address] [place], [place] [address]Dr. Florian ChangBilirubin [Mass/Vol]1.5 mg/dLCritically high0.2-1.0The [facility] HospitalComment on above:Performed By: #### CMP, LIPA ####[facility] [address] [address]Dr. Yilan ChangCalcium [Mass/Vol]10.3 mg/dLCritically high8.5-10.1The [facility] HospitalComment on above:Performed By: #### CMP, LIPA ####[facility] [address] [address]Dr. Yilan ChangChloride [Moles/Vol]90 mmol/LCritically nml20-744Cjj [facility] HospitalComment on above: Performed By: #### CMP, LIPA ####[facility] [address] [place], [place] [address]Dr. Yilan ChangCO2 [Moles/Vol]23.7 mmol/LNormal 21.0-32.0The [facility] HospitalComment on above:Performed By: #### CMP, LIPA ####[facility] [address] [place], [place] [address]Dr. Yilan ChangCreatinine [Mass/Vol]0.96 mg/dLNormal0.70-1.30The [facility] Comment on above:Performed By: #### CMP, LIPA ####[facility] [address] [place], [place] [address]Dr. Yilan ChangEGFR-AF MICRONESIAN>60Normal>=60The [facility] Memorial HospitalComment on above:Performed By: #### CMP, LIPA ####[facility] [address] [place], [place] [address]Dr. Yilan ChangEGFR-NON AF MICRONESIAN>60Normal>=60The [facility] Comment on above:Performed By: #### CMP, LIPA ####[facility] [address] [place], [place] [address]Dr. Yilan ChangGlobulin (S) [Mass/Vol]3.6 g/dLNormalThe [facility] HospitalComment on above:Performed By: #### CMP, LIPA ####[facility] [address] [place], [place] [address]Dr. Yilan ChangGlucose [Mass/Vol]97 mg/yWPprrap29-752Ykf [facility] Comment on above:Performed By: #### CMP, LIPA ####[facility] [address] [address]Dr. Yilan ChangPotassium [Moles/Vol]3.7 mmol/LNormal3.5-5.1The [facility] HospitalComment on above: Performed By: #### CMP, LIPA ####[facility] [address] [address]Dr. Yilan ChangProtein [Mass/Vol]8.3 g/dLCritically high6.4-8.2The [facility] HospitalComment on above:Performed By: #### CMP, LIPA ####[facility] [address] [place], [place] [address]Dr. Yilan ChangSodium [Moles/Vol]131 mmol/LCritically wxj308-330Dlp [facility] HospitalComment on above:Performed By: #### CMP, LIPA ####[facility] [address] [place], [place] [address]Dr. Yilan ChangUrea nitrogen [Mass/Vol]7.0 mg/dLNormal7.0-18.0The [facility] HospitalComment on above:Performed By: #### CMP, LIPA ####[facility] [address] [place], [place] [address]Dr. Yilan ChangUrea nitrogen/Creatinine [Mass ratio] 7.3 mg/mgNormalThe [facility] HospitalComment on above:Performed By: #### CMP, LIPA ####[facility] [address] [place], [place] [address]Dr. Yilan ChangSYMPTOMATIC COVID-19 ANTIGENon 40-65-2525KLD StatementSEE BELOW NormalThe [facility] HospitalComascension [facility] on above:Result Comment: This test has not been FDA cleared or approved, but has been authorized [...] declaration is terminated or authorization is revoked sooner.Performed By: #### CVDAGS #### [facility] [address] [place] [address] Dr. Florian Salinas-CoV-2 (COVID-19) RNA JOHNNY+probe Ql (Unsp spec)NegativeNormal NEGATIVEThe [facility] HospitalComment on above:Performed By: #### CVDAGS #### [facility] [address] [place] [address] Dr. Florian HarrisonXR CHEST 1 Von 15-69-8414YQ CHEST 1 VEXAMINATION:XR CHEST 1 V INDICATION:COUGH COMPARISON:11/17/2022 TECHNIQUE:A single frontal view of the chest is submitted. FINDINGS: The cardiomediastinal silhouette is not enlarged. The pulmonary vascularity is within normal limits. Lungs are hyperinflated without acute airspace disease. There is no costophrenic angle blunting. IMPRESSION: No acute cardiopulmonary process. Electronically authenticated by: JURGEN GREENE Date: 2023-02-03 01:58[facility] W MANUAL DIFFon 81-55-2740GUMVOYAX LYMPH #NormalThe [facility] HospitalComment on above:Performed By: #### CBCMAN #### [facility] [address] [place] [address] Dr. Florian HarrisonATYPICAL LYMPH %NormalThe [facility] HospitalComment on above: Performed By: #### CBCMAN #### [facility] [address] [place] [address] Dr. Florian Olson #Normal0.0-0.3The [facility] HospitalComment on above: Performed By: #### CBCMAN #### [facility] [address] [place] [address] Dr. Florian Olson %Normal0-5The [facility] HospitalComment on above:Performed By: #### CBCMAN #### [facility] [address] [address] [address] Florian Vieyra #0.00 103/ulNormal0.00-0.10The [facility] HospitalComment on above:Performed By: #### CBCRAYMON #### [facility] [address] [address] [address] Florian Vieyra %0.0 %Critically low0.2-2.0The [facility] HospitalComment on above:Performed By: #### CBCMAN #### [facility] [address] [place] [address] Dr. Florian Figueroa #NormalThe [facility] HospitalComment on above:Performed By: #### BERNADETTE #### [facility] [address] [place] [address] Dr. Florian HarrisonBLAST %NormalThe [facility] HospitalCom[facility] on above:Performed By: #### BERNADETTE #### [facility] [address] [place] [address] Dr. Florian HarrisonCORRECTED WBCNormal4.0-11.0The [facility] on above: Performed By: #### CBCRAYMON #### [facility] [address] [place] [address] Dr. Florian Lazar #0.19 103/ulNormal0.00-0.70The [facility] HospitalCom[facility] on above:Performed By: #### CBCRAYMON #### [facility] [address] [place] [address] Dr. Florian Lazar%2.0 %Normal0.9-7.0The [facility] HospitalComment on above: Performed By: #### CBCRAYMON #### [facility] [address] [place] [address] Dr. Florian HarrisonHCT43.9 %Xkmugf48.0-54.0The [facility] HospitalCom[facility] on above: Performed By: #### CBCMAN #### [facility] [address] [place] [address] Dr. Florian HarrisonHGB14.7 g/muBoklrq07.0-18.0The [facility] HospitalComment on above: Performed By: #### BERNADETTE #### [facility] [address] [address] [address] Florian Covarrubias #1.86 103/ulNormal1.20-3.80The [facility] HospitalComment on above:Performed By: #### BERNADETTE #### [facility] [address] [address] [address] Florian Covarrubias%20.0 %Critically low20.5-60.0The [facility] HospitalComment on above:Performed By: #### BERNADETTE #### [facility] [address] [address] [address] Florian HummelH33.4 dsKxjyph44.9-34.0The [facility] HospitalComment on above: Performed By: #### BERNADETTE #### [facility] [address] [place] [address] Dr. Florian HummelHC33.5 g/rsDibptr60.9-35.2The [facility] HospitalComment on above:Performed By: #### BERNADETTE #### [facility] [address] [place] [address] Dr. Florian HummelV99.8 fLCritically high80.0-94.0The [facility] HospitalComment on above:Performed By: #### BERNADETTE #### [facility] [address] [place] [address] Dr. Florian DarlingOCYTE #NormalThe [facility] HospitalComment on above: Performed By: #### BERNADETTE #### [facility] [address] [place] [address] Dr. Florian DarlingOCYTE %NormalThe [facility] HospitalComment on above: Performed By: #### BERNADETTE #### [facility] [address] [place] [address] Dr. Florian Fontanez#1.67 103/ulCritically high0.30-0.80The [facility] Comment on above:Performed By: #### BERNADETTE #### [facility] [address] [place] [address] Dr. Florian Fontanez%18.0 %Critically high1.7-12.0The [facility] HospitalComment on above:Performed By: #### BERNADETTE #### [facility] [address] [place] [address] Dr. Florian HarrisonMPV9.0 fLCritically low9.5-13.5The [facility] HospitalComment on above:Performed By: #### BERNADETTE #### [facility] [address] [place] [address] Dr. Florian SharmaOCYTE #NormalPromedica Fostoria Community HospitalComment on above:Performed By: #### BERNADETTE #### [facility] [address] [place] [address] Dr. Florian SharmaOCYTE %NormalThe [facility] HospitalComment on above:Performed By: #### BERNADETTE #### [facility] [address] [place] [address] Dr. Florian HarrisonNRBCNormalThe [facility] HospitalComment on above:Performed By: #### BERNADETTE #### [facility] [address] [place] [address] Dr. Florian HarrisonPLT214 103/knAhrfxm529-299Vwy [facility] HospitalComment on above: Performed By: #### BERNADETTE #### [facility] [address] [place] [address] Dr. Florian HarrisonRBC4.40 106/ulCritically low4.70-6.10The [facility] HospitalComment on above:Performed By: #### BERNADETTE #### [facility] [address] [place] [address] Dr. Florian HarrisonRDW13.1 %Ovytbc39.0-15.0The [facility] HospitalComment on above: Performed By: #### BERNADETTE #### [facility] [address] [place] [address] Dr. Florian Gomez #5.58 103/ulNormal1.40-6.50The [facility] HospitalComment on above:Performed By: #### BERNADETTE #### [facility] [address] [place] [address] Dr. Florian Gomez %60.0 %Yqqbqj59.0-75.0The [facility] HospitalComment on above: Performed By: #### CBCMAN #### [facility] [address] [place] [address] Dr. Florian VieraBC9.3 103/ulNormal4.0-11.0The [facility] HospitalComment on above: Performed By: #### CBCMAN #### [facility] [address] [place] [address] Dr. Florian Iraheta 14(COMP METB)on 23-63-7586Huncdsg [Mass/Vol]4.4 g/dLNormal 3.4-5.0The [facility] HospitalComment on above:Performed By: #### CMP #### [facility] [address] [place] [address] Dr. Florian HarrisonAlbumin/Globulin [Mass ratio]1.6 {ratio}NormalThe [facility] HospitalComment on above:Performed By: #### CMP #### [facility] [address] [place] [address] Dr. Florian Archibald [Catalytic activity/Vol]59 U/GDqgtud90-253Lgm [facility] HospitalComment on above:Performed By: #### CMP #### [facility] [address] [place] [address] Dr. Florian Heredia [Catalytic activity/Vol]94 U/LCritically wpna69-48Zcj [facility] HospitalComment on above:Performed By: #### CMP #### [facility] [address] [place] [address] Dr. Florian Sahu gap [Moles/Vol]17.7 mmol/LNormalThe [facility] Comment on above:Performed By: #### CMP #### [facility] [address] [place] [address] Dr. Florian Dickens [Catalytic activity/Vol]72 U/LCritically uyht54-26Amh [facility] HospitalComment on above:Performed By: #### CMP #### [facility] [address] [place] [address] Dr. Yilan ChangBilirubin [Mass/Vol]0.5 mg/dLNormal0.2-1.0The [facility] Comment on above:Performed By: #### CMP #### [facility] [address] [address] [address] Florian HarrisonCalcium [Mass/Vol]9.5 mg/dLNormal8.5-10.1The [facility] Comment on above:Performed By: #### CMP #### [facility] [address] [address] [address] Florian HarrisonChloride [Moles/Vol]102 mmol/LIgpugd76-688Hfy [facility] Comment on above:Performed By: #### CMP #### [facility] [address] [address] [address] Florian HarrisonCO2 [Moles/Vol]22.0 mmol/MUkpxgu99.0-32.0The [facility] Comment on above:Performed By: #### CMP #### [facility] [address] [place] [address] Dr. Florian HarrisonCreatinine [Mass/Vol]0.67 mg/dLCritically low0.70-1.30The [facility] HospitalComment on above:Performed By: #### CMP #### [facility] [address] [place] [address] Dr. Florian CeronGFR-AF MICRONESIAN>60Normal>=60The [facility] HospitalComment on above:Performed By: #### CMP #### [facility] [address] [place] [address] Dr. Florian CeronGFR-NON AF MICRONESIAN>60Normal>=60The [facility] HospitalComment on above:Performed By: #### CMP #### [facility] [address] [place] [address] Dr. Florian HarrisonGlobulin (S) [Mass/Vol]2.7 g/dLNormalThe [facility] HospitalComment on above:Performed By: #### CMP #### [facility] [address] [place] [address] Dr. Florian HarrisonGlucose [Mass/Vol]89 mg/bKXkgamd17-409YixPromedica Fostoria Community Hospital Comment on above:Performed By: #### CMP #### [facility] [address] [address] [address] Florian HarrisonPotassium [Moles/Vol]3.7 mmol/LNormal3.5-5.1[facility] Comment on above:Performed By: #### CMP #### [facility] [address] [address] [address] Florian HarrisonProtein [Mass/Vol]7.1 g/dLNormal6.4-8.2[facility] Comment on above:Performed By: #### CMP #### [facility] [address] [place] [address] Dr. Florian HarrisonSodium [Moles/Vol]138 mmol/CMireye014-185XzhPromedica Fostoria Community Hospital Comment on above:Performed By: #### CMP #### [facility] [address] [place] [address] Dr. Florian HarrisonUrea nitrogen [Mass/Vol]5.0 mg/dLCritically low7.0-18.0[facility] HospitalComment on above:Performed By: #### CMP #### [facility] [address] [place] [address] Dr. Florian Ballesteros nitrogen/Creatinine [Mass ratio]7.5 mg/mgNoalThMercy Health Perrysburg HospitalComment on above:Performed By: #### CMP #### [facility] [address] [place] [address] Dr. Florian HarrisonXR CHEST 1 Von 28-03-1808SL CHEST 1 VEXAM: XR CHEST 1 V HISTORY: COUGH COMPARISON: None available TECHNIQUE: Single frontal view chest x-ray FINDINGS: No lobar lung consolidation, large pleural effusions, pneumothorax, or acute bony abnormality. Cardiac size is unremarkable. IMPRESSION: No radiographic evidence for acute chest abnormality. Electronically authenticated by: CHRISTAL DOMINGUEZ Date: 2022-11-18 00:35NoProtestant Deaconess HospitalCovid-19 PCR (CVDTBH)on 92-16-5916QOOY-CoV-2 (COVID-19) RNA JOHNNY+probe Ql (Unsp spec)Not detectedNormalNOT DETECTEDThe [facility] Comment on above:Result Comment: This test is not yet approved or cleared by the [place] FDA. When there are no FDA-approved or cleared tests available, and other criteria are met, FDA can make tests available under an emergency access mechanism called an Emergency Use Authorization (EUA). The EUA for this test is supported by the Drawing Tender of Health and Human Service's (HHS's) declaration that circumstances exist to justify the emergency use of in vitro diagnostics for the detection and/or diagnosis of the virus that causes COVID- 19. This EUA will remain in effect (meaning [...] of clinical signs and symptoms consistent with SARS-CoV-2.Performed By: #### CVDTBH #### [facility] [address] [place] [address] Dr. Florian Song AND B AGon 84-30-8585QJCSOUPOUYHWS Wilson HealthComment on above:Result Comment: Negative for Flu A protein angiten. Infection due to Flu A cannot be ruled out. FluA angiten in the sample may be below the detection limit of the test.Performed By: #### INFLUAB ####[facility] [address] [address] Florian HarrisonINFLUBNEGHSEE [facility] HealthComasc[facility] stand[facility] on above:Result Comment: Negative for Flu B protein antigen. Infection due to Flu B cannot be ruled out. FluB antigen in the sample may be below the detection limit of the test.Performed By: #### INFLUAB ####[facility] [address] [address]DrJo Ann HarrisonINFLJORGE L Song AGNegativeNormalNEGATIVE SEE COMMENTThe [facility] on above:Performed By: #### INFLUAB ####[facility] [address] [place], [place] [address]Rx. Florian HarrisonINFLUENZA B AGNegativeNormalNEGATIVE SEE COMMENTThe [facility] Comment on above:Performed By: #### INFLUAB ####[facility] [address] [place], [place] [address]MbJo Ann HarrisonINTERNAL CONTROLSWithin Normal LimitsNormalWithin Normal LimitsThe [facility] HospitalComment on above: Performed By: #### INFLUAB ####[facility] [address] [place], [place] [address]Yc. Florian HarrisonRehab Psych Evaluationon 07-20-2018 Rehab Psych EvaluationMR#: [id number] REHABILITATION SERVICES ( ) INPATIENT (x) OUTPATIENT Patient Name: Martin Amor Date of : 1995 Referring Physician: Marquis Cavazos D.O. Dictated By: Ramsey Alejandra, PhD Evaluation Date: 07/19/2018 neuropsychological evaluation DATE (TIME) TESTED: 07/19/2018 (0900) DIAGNOSIS: Postconcussive syndrome DATE OF ONSET: February 19, 2017 DATE OF : 1995 AGE: 23 TIME SPENT: 4 hours professional; 2 hours accounting technician (no duplication of services) REASON FOR REFERRAL: This is the initial neuropsychological evaluation of Mr. Martin Alvarez, a 23-year-old, right-handed, White, gentleman who is referred by neurologist, Dr. Marquis Cavazos to ascertain his present neurocognitive status [...] MRI of the brain was conducted at [facility] on 01/19/2018 and was reportedly read [...] has been seeing counselor, Migue Palacios, at [facility] for approximately one year (since [...] Mr. Alvarez notes he was born in [place], [place] and currently resides in [place], [place] with his girlfriend, and multiple members [...] Mr. Alvarez reports he struggled substantially in [place] classes and notes he participated in speech therapy for approximately two years, noting I had a hard time forming words. Ms. Alvarez reports Mr. Alvarez repeated the first grade as he was not ready for school. VOCATIONAL HISTORY: Mr. 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 Mr. Alvarez was also administered a reading [...] right-handed, gentleman, who was referred by Dr. Marquis Cavazos to ascertain his present neurocognitive status [...] estimated IQ in the high average range (MWEB=737), consistent with predicted intellectual abilities suggesting no [...] Use a pocket notepad, personal digital marketing executive, wristwatch alarm, voice recorder, pill box, or [...] If you have any questions, please call [phone]. DICTATED BY: Ramsey Alejandra, PhD Neuropsychology Fellow REVIEWED BY: Electronically Signed by: Mariana Aguirre, PhD, ABPP 08/02/2018 08:57 A Mariana Aguirre, PhD, ABPP Board Certified Clinical Neuropsychologist Date Dict: 07/20/2018/11:36 A/Ramsey Alejandra, PhD Date Trans: 07/20/2018 12:47 P/mmo DN_JN:[id number] cc: Mariana Aguirre, PhD, ABPP [address] [facility] [address] Marquis Cavazos D.O. [address] [place] [address] *Mr. Martin Alvarez [address] [place] [address] Vital Signs Date TimeVital SignValuePerforming BvcfjguwmIafajswj03-49-8934 15:06-0500Blood Pressure LocationMichaesimon NILL 128-4294Rsffhc-RywjySabeth[facility]11-20-2024 15:06-0500Diastolic blood iqanudnm77 mm[Hg]Momo TANNER 481-7345Imexnd-LmnbdSelect Medical [facility]ty [facility]11-20-2024 15:06-0500Heart rate72 /minMichaesimon NILL 500-5429Qhzabk-LantnMercy Health – The Jewish Hospitalue11-20-2024 15:06-0500Respiratory rate16 /minMichael NILL 705-6498Pfmsxw-Bcgwe General Surgery Wpneatdw25-06-7831 15:06-0500Systolic blood snklyyir817 mm[Hg]Momo NILL 895-7679Selgbv-Ocvnx General Surgery Uwwmorra63-06-4599 15:44-0400Blood Pressure LocationMichael NILL [facility] Qqguhjng37-91-5023 15:44-0400Diastolic blood pmehiuzt48 mm[Hg]Momo NILL [facility] Surgery Olfxttyl09-44-0656 15:44-0400Heart rate 74 /minMichael NILL [facility] Surgery Puowhpms54-36-3826 15:44-0400 Respiratory rate16 /minMichael NILL [facility] Surgery Lajqwdlr49-82-1438 15:44-0400Systolic blood yjomjpat212 mm[Hg]Momo NILL [facility] Encounters Encounter DateEncounter TypeCare ProviderFacilityStart: 09-05-2024 End: 70-91-8677gdpvarltokWwxipoi R NILLFacility: rt: 09-05-2024 End: 12-14-7063Urdfujv encounter procedureMichael R NILL [phone]-UvindFort [facility] Hospital General Surgery Vasiliy Start: 08-29-2024 End: 56-74-8435mxxdastoknEuoydzd R NILLFacility:[facility] Centertart: 08-22-2024 End: 58-14-6260czeervdezoTtwmqlc R NillFacility:[facility]Healthtart: 08-22-2024 End: 05-71-2185bhjwgawbexYrqftgc R NILLFacility::[id number]: 08-08-2024 End: 79-68-8430yymmerlhewJjjlxzn R NILLFacility:GS BellevueStart: 08-08-2024 End: 45-00-5217Fvoxtgj encounter procedureMichael R NILL [phone]-Hqcvk General Surgery [facility] Start: 05-18-2023 End: 31-48-5288Smdkjdj encounter procedureMichael R NILL General Surgery Nill/Said [facility] Start: 02-03-2023 End: 42-24-4666dydjbclsaxBN ARLENE MARKER .Facility:J1Cdwaa: 11-18-2022 End: 68-36-2966pjhxyhsqewHRERFU YANGFacility:B5Cykay: 07-22-2022 End: 18-10-5368ntihdxadqoAE DOUGLAS HOY .Facility:T5Kkknc: 20-25-2849xqilcbnakv DR CISCO UMAÑA .Facility:T7Tyurd: 07-20-2018 End: 67-02-9878Xdgjjpq encounter procedureCHRISTOPHER HASSETTFacility:[facility] CENTERtart: 07-19-2018 End: 13-10-3390Fglvnrb encounter procedureCHRISTOPHER HASSETTFacility:[facility]ENTERtart: 05-03-2018 End: 74-94-2149Incfjhi encounter procedureDEFAULT PHYSICIANFacility:[facility] Procedures DateProcedureProcedure DetailPerforming ClinicianStart: 17-37-4819Gmoaidcl of anal skin tagMichael NILL Start: 19-06-8363LvlywzpyuvqXluyyos NILL Start: 19-97-3950KfhibmhcqewdhqwjnwwkakqoudRvxcfjk NILL CholecystectomyMichael NILL ColonoscopyMichael NILL EsophagogastroduodenoscopyMichael NILL Immunizations Immunization DateImmunizationNotesCare IreyaexlEculxrps82-78-0032YJYT-NdN-0 (COVID-19) mRNA BNT-162b2 Paco SANTOSL General Surgery BellevueComment on above:Result Comment: 2023-05-13: SADPNF29-08-6986AKQM-DdT-4 (COVID-19) mRNA BNT-162b2 lilliam TANNER General Surgery BellevueComment on above:Result Comment: 2023-05-13: EDYGHG68-48-5671XTPY-JcO-7 (COVID-19) mRNA BNT-162b2 lilliam TANNER General Surgery BellevueComment on above:Result Comment: 2023-05-13: TPVALL Payers DatePayer CategoryPayerPolicy [id number] [id number] [id number] 2.0.1.644084.3.57[id number] 2.0.1.863989.3.57[id number] 2.840.1.597708.3.57[id number] 2.840.1.349990.3.57[id number] 2.840.1.042542.3.57[id number] 2.840.1.871033.3.57[id number] 2.840.1.641408.3.57[id number] 2..840.1.301096.3.57[id number] 2..840.1.333331.3.57[id number] 2.840.1.265612.3.579.2.34747-78-9460Ypor-[id number]-koe Unknown Social History DateTypeDetailFacilityStart: 05-18-2023 End: 74-65-9861Dmbojks smoking statusHeavy tobacco smoker (finding)General Surgery UnitedTobacco smoking statusFormer smokeless tobacco user, quit more than 30 days agoGeneral Surgery [facility] SystemueSex Assigned At BirthWright-[facility] Functional Status DkurCtlkjmwxbyFfdkuiMrciasms82-37-3932Vtzfxbhogw StatusN/[facility] Surgery Mianbhys04-47-5986Lxpaixqysp StatusN/AGeneral Surgery [facility] Clinical Note 08-08-2024 Note Date & ZeexCqhmNflnfggq39-89-0348 NoteGeneral Surgery Office/Clinic Note Chief Complaint consultation for hemorrhoid HPI Staff 29 year old male presents on consultation from Dr. Umaña/[facility] ED for rectal bleeding. Presented to ED [...] swallowing difficulties, no hearing loss, no ear infection(s),no nose bleeds. Cardiovascular: normal blood pressure, no [...] right lateral anal skin tag, minimal bleeding/tenderness; leftlateral anal skin tag; no fissures, no masses [...] Daily, # 30 EA, Refills(s) 3, Pharmacy: [facility] #[id number], 175.2, cm, 05/18/23 15:50:00 EDT, Height/Length Dosing, [...] last 30 days Tobacco Use:. Former smokeless tobaccouser, (more content not included)...[facility]:Result Comment: Electronically Signed By: LEILA HERRERA, Momo Burleson\Date and Time Signed: 08/08/24 16:50 EST Evaluation + Plan note Note Date & TypeNoteFacilityEvaluation + Plan note No data available for this section [facility] Discharge instructions Note Date & TypeNoteFacilityHospital Discharge instructions No data available for this section General Surgery [facility] Progress note Note Date & TypeNoteFacilityProgress note No data available for this section General Surgery [facility] Summary Purpose Family History No Family History [...] section and content) DATE CREATED AUTHOR 11/07/2018 [facility] DATE CREATED AUTHOR AUTHOR'S ORGANIZ ATION 02/03/2023 [facility] DATE CREATED AUTHOR AUTHOR'S ORGANIZ ATION 08/30/2024 [facility] DATE CREATED AUTHOR AUTHOR'S ORGANIZ ATION 09/12/2024 [facility] DATE CREATED AUTHOR AUTHOR'S ORGANIZ ATION 09/18/2024 [facility] Patient Care team informatio n (unrecognized section and content) Personnel Name: Cisco Umaña MD Address: Address: [address] [place] [address] Personnel Name: Cisco Umaña MD Address: Address: [address] [place] [address] Personnel Name: Cisco Umaña MD Address: Address: [address] [place] [address] FOR RECORDS PERTAINING TO PATIENTS WHO ARE [...] BE BASED ON THE PRIMARY CLINICAL RECORDS. [facility]. provides no warranty or guarantee of the accuracy or completeness of information in this document.
--- NOTE | 2025-08-05 17:33 | US_ITS ---
[address] [address] Patient Name: SHAHIDA ALVAREZ MRN: [id number] date: 1995 Sex: M Assigned Patient Location: US Current Patient Location: Accession/Order Number: [id number] Exam Date: 08/05/2025 17:40 Report Date: 08/05/2025 21:52 At the request of: CISCO WELLS MD Procedure: US scrotum EXAMINATION TYPE: US scrotum grayscale, color Doppler, waveform duplex analysis was performed. DATE OF EXAM ORDERED: 08/05/2025 6:21 PM HISTORY: SCROTAL SWELLING N50.89 COMPARISON: NONE TECHNIQUE: Realtime imaging of the scrotum was performed. Sanchez scale, color Doppler and spectral Doppler imaging of the testicles was performed. FINDINGS: Testicles: Both testicles demonstrate homogeneous echotexture without intratesticular filling defect. Right measurements: 4.6 x 2.2 x 2.8 cm Left measurements: 4.0 x 2.6 x 2.9 cm Epididymis: There is an anechoic epididymal head cyst on the left measuring up to 6 mm in greatest dimension. Right measurements: 4 mm Left measurements: 7 mm Hydrocele: There is a large right and small left hydrocele Doppler ultrasound of the testicles: Arterial and venous waveforms are seen within both testicles. No sonographic evidence of testicular ischemia. US/US scrotum IMPRESSION: 1. The testicles are normal in size and echogenicity. No intratesticular lesions. 2. No sonographic evidence of testicular ischemia. 3. There is a large right hydrocele and a small left hydrocele. Impression dictated by: Migue Edgar M.D. 08/05/2025 9:52 PM Dictation Location: [address] [address] Electronically authenticated by: [id number] Y Date: 08/05/2025 21:52
== END 2025-08-05 17:21 | disposition home or self-care (01) ==
PROVIDERS: PCP Family Medicine; Visit Provider Family Medicine
DX: N50.89 Other specified disorders of the male genital organs (principal); N43.3 Hydrocele, unspecified
CPT/HCPCS: 76870